=== PATIENT | female | born 1970 | race Two or more races ===

== ENCOUNTER 2021-11-07 08:59 | Outpatient (REF) | payer MEDICAID, SELFPAY ==
--- NOTE | ~2021-11-07 | XR_ITS ---
EXAMINATION: XR CHEST CLINICAL INFORMATION: Pain. Costochondritis COMPARISON: None TECHNIQUE: 2 views of the chest were obtained. FINDINGS: Lungs are clear. There is no pneumothorax or pleural reaction, airspace consolidation, or effusion. The costophrenic sulci are well-defined. Heart size normal. Normal vascularity. The hilar and mediastinal contours are normal. There are mild multilevel degenerative changes thoracic spine with bridging anterior and right lateral osteophytes. No visible acute bony abnormality. XR/XR chest 2V IMPRESSION: -Lungs clear. -Multilevel thoracic vertebral osteophytes.
== END 2021-11-07 09:00 | disposition home or self-care (01) ==
LOC: HO.XRAY 08:59
PROVIDERS: PCP Student in an Organized Health Care Education/Training Program; Visit Provider Student in an Organized Health Care Education/Training Program
DX: M94.0 Chondrocostal junction syndrome [Tietze] (principal)
CPT/HCPCS: 71046

== ENCOUNTER 2023-09-18 20:20 | Outpatient (REF) | payer MEDICAID, SELFPAY | END 2023-09-18 20:21 | disposition home or self-care (01) | LOC: HO.LNP 20:20 | PROVIDERS: Visit Provider Emergency Medicine | DX: M54.50 Low back pain, unspecified (principal) | CPT/HCPCS: 87086 ==

== ENCOUNTER 2023-09-24 08:34 | Outpatient (REF) | payer MEDICAID, SELFPAY ==
[2023-09-24 11:29] LABS: Alanine Aminotransferase 11 U/L (0-31); Albumin Level 3.7 g/dL (3.5-5.0); Alkaline Phosphatase 61 U/L (39-117); Anion Gap 13 (12-20); Aspartate Amino Transferase 11 U/L (5-31); Bilirubin Direct 0.1 mg/dL (0.0-0.5); Bilirubin Total 0.3 mg/dL (0.0-1.0); Blood Urea Nitrogen 11 mg/dL (9-16); Calcium 9.2 mg/dL (8.4-10.2); Carbon Dioxide 27 mmol/L (22-29); Chloride 104 mmol/L (96-108); Cholesterol 194 mg/dL (<200); Estimated Glomerular Filt Rate > 60; Glucose Random 175 mg/dL (60-115); HDL Cholesterol 36 mg/dL (>40); LDL Cholesterol Calculated 122 mg/dL (<100); Potassium 3.8 mmol/L (3.3-5.1); Sodium 140 mmol/L (135-145); Total Protein 6.8 g/dL (6.5-8.0); Triglycerides 182 mg/dL (<150)
== END 2023-09-24 08:35 | disposition home or self-care (01) ==
LOC: HO.CHCLDS 08:34
PROVIDERS: Visit Provider Student in an Organized Health Care Education/Training Program
DX: I10 Essential (primary) hypertension (principal)
CPT/HCPCS: 36415; 80048; 80061; 80076

== ENCOUNTER 2023-10-16 12:19 | Emergency (ER) | payer MEDICAID, SELFPAY ==
--- NOTE | ~2023-10-16 | XR_ITS ---
EXAMINATION: XR HAND, LEFT CLINICAL INFORMATION: Injury. COMPARISON: None available. TECHNIQUE: PA, lateral, and oblique views of the left hand. FINDINGS: The bones and soft tissues are normal. No fracture. Alignment is anatomic. Joint spaces are maintained. No erosions or soft tissue calcifications. XR/XR hand LT min 3V IMPRESSION: Normal left hand.
--- NOTE | 2023-10-16 12:47 | ED.GENADULT ---
HPI - General Adult General Chief complaint: Extremity Problem Stated complaint: L hand inj Time Seen by Provider: 10/16/23 14:30 Related Data Allergies Allergy/AdvReac Type Severity Reaction Status Date / Time morphine Allergy Unknown Anaphylaxis Verified 10/16/23 12:50 Iodinated Contrast Media Allergy Anaphylaxis Verified 10/16/23 12:50 [IV Contrast Dye] [facility] Social History Social History Advance Directives: No Advance Directives Information Provided: No Physical Exam ED Vital Signs: BMI result Body Mass Index 41.5 Course Course Course Narrative: This is a rapid medical exam performed by Carlos Dozier NP: Additional HPI, ROS, PE not included below will be deferred to primary provider. Patient is a 53-year-old right hand dominant female presenting with atraumatic L hand pain for 1 hour. States she shook her left hand and developed the pain. Worst at 3rd MCP joint. Tenderness and mild swelling over 3rd MCP, decreased ROM with flexion of 3rd finger. Capillary refill <3 seconds, 2+ radial pulse. Plan: xray Discharge Plan Discharge Clinical Impression: Hand pain, left Patient Disposition: Left W/O Completing Treatment Discharge Date/Time: 10/16/23 16:11
[2023-10-16 12:48] VITALS: BP 147/79; PULSE 89; RESP 16; TEMP 36.6; O2SAT 98; BMI 41.5
== END 2023-10-16 16:11 | disposition left against medical advice (07) ==
LOC: HO.ED 16:09
PROVIDERS: Emergency Provider Emergency Medicine; PCP Student in an Organized Health Care Education/Training Program
DX: M79.642 Pain in left hand (principal)
CPT/HCPCS: 73130; 99281; 99283

== ENCOUNTER 2023-12-17 08:54 | Outpatient (REF) | payer MEDICAID, SELFPAY ==
[2023-12-17 14:23] LABS: Alanine Aminotransferase 15 U/L (0-31); Alkaline Phosphatase 78 U/L (39-117); Anion Gap 15 (12-20); Aspartate Amino Transferase 11 U/L (5-31); Bilirubin Direct 0.1 mg/dL (0.0-0.5); Bilirubin Total 0.3 mg/dL (0.0-1.0); Blood Urea Nitrogen 17 mg/dL (9-16); Calcium 9.7 mg/dL (8.4-10.2); Carbon Dioxide 29 mmol/L (22-29); Chloride 101 mmol/L (96-108); Cholesterol 226 mg/dL (<200); Estimated Glomerular Filt Rate > 60; Glucose Random 144 mg/dL (60-115); HDL Cholesterol 38 mg/dL (>40); LDL Cholesterol Calculated 148 mg/dL (<100); Potassium 3.4 mmol/L (3.3-5.1); Sodium 142 mmol/L (135-145); Total Protein 7.5 g/dL (6.5-8.0); Triglycerides 200 mg/dL (<150)
== END 2023-12-17 08:55 | disposition home or self-care (01) ==
LOC: HO.CHCLDS 08:54
PROVIDERS: Visit Provider Student in an Organized Health Care Education/Training Program
DX: I10 Essential (primary) hypertension (principal)
CPT/HCPCS: 36415; 80048; 80061; 80076

== ENCOUNTER 2023-12-20 08:47 | Outpatient (REF) | payer MEDICAID, SELFPAY ==
[2023-12-20 14:47] LABS: TSH reflex Free T4 0.11 uIU/mL (0.32-4.0)
[2023-12-20 15:12] LABS: Estimated Average Glucose 169 mg/dL; Hemoglobin A1c % 7.5 % (<6.0)
== END 2023-12-20 08:48 | disposition home or self-care (01) ==
LOC: HO.CHCLDS 08:47
PROVIDERS: Visit Provider Student in an Organized Health Care Education/Training Program
DX: I10 Essential (primary) hypertension (principal)
CPT/HCPCS: 36415; 83036; 84439; 84443

== ENCOUNTER 2024-01-02 07:49 | Outpatient (AMB) | payer MEDICAID, SELFPAY ==
[2024-01-02 08:01] VITALS: BP 118/82; PULSE 65; BMI 44.4
--- NOTE | 2024-01-02 08:01 | MHC.OFFVIS ---
Vital Signs 01/02/24 08:01 Height 5 ft 7 in Weight 283 lb 4.704 oz BMI 44.4 BP 118/82 Blood Pressure Location Lt brachial Position Sitting Pulse 65 Pulse Source Pulse Oximeter Intake Visit Reasons: Hyperthyroidism-conf Intake Note: New patient present today for Hyperthyroidism. Business Relationship Manager Required: Yes Business Relationship Manager Language: Meat Press Operator Services: Business Relationship Manager Present Business Relationship Manager Name: Kristina [id number] Information Interpreted: non-clinical & clinical Accompanied by: Self / Same As Patient Allergies morphine Allergy (Unknown, Verified 01/02/24 08:05) Anaphylaxis Iodinated Contrast Media [IV Contrast Dye] Allergy (Verified 01/02/24 08:05) Anaphylaxis Medication List - Last Reconciled 01/02/24 by Kaleigh Augustine MD acetaminophen ER 650 mg PO Q8H PRN albuterol sulfate 90 mcg/actuation (Ventolin HFA) 2 puffs inhalation TID PRN carvedilol 12.5 mg PO BID diclofenac sodium 1% 2 grams topical QID empagliflozin (Jardiance) 10 mg PO DAILY ibuprofen 800 mg PO Q8H PRN mometasone 200 mcg/actuation (Asmanex HFA) 1 puff inhalation BID montelukast 10 mg PO QPM simvastatin 20 mg PO BEDTIME tiotropium bromide (Spiriva with HandiHaler) 1 cap inhalation DAILY valsartan 160 mg PO BID HPI Comments Details: 53-year-old female coming in today for initial evaluation of subclinical hyperthyroidism. Labs from 12/20/2023 showed TSH of 0.11 uIU per mL, with free T4 of 1.10 ng/dL. No prior history of thyroid disease. Complaining of some heat intolerance. Complaining of palpitations a year , evaluated by cardiology says all studies were normal. Sees Dr. Jon Lindo in [address] Chronic anxiety. Low energy Denies diarrhea or constipation, hair loss, no weight changes, changes in appearance of eyes or vision changes, tremors, increased diaphoresis or dry skin. ? Patient denies any difficulty swallowing, pain on swallowing or voice changes or difficulty breathing. Patient denies any history of childhood neck radiation. Denies having ever used lithium, amiodarone or biotin supplements. Patient denies any family history of thyroid cancer. Mother , maternal grandmother , maternal aunts have thyroid disease. She is not sure what but they havent had thyroid surgery . Has history of tibial fracture 18 years ago, slipped on ice. No history of heart disease or stroke. Denies any viral illness when testing was done. No exposure to contrast . Review of systems Constitutional: no fevers, chills or weight loss HEENT: no changes in vision Cardiac: No chest pain, discomfort or palpitations. Pulmonary: No SOB GI:No abdominal pain, no nausea or vomiting, no anorexia, no blood in stool : no burning micturition, dysuria or increase in urinary frequency Neurologic: No dizziness, no weakness in extremities MSK: no back pain or joint stiffness Physical exam General: sitting comfortably in bed in no acute distress HEENT: normocephalic/atraumatic, moist oral mucosa Neck: supple, symmetrical, no thyromegaly , no dorsocervical or supraclavicular fat pads Cardiac: normal heart sounds Pulm: normal breath sounds B/L, no added breath sounds Abd: not distended, no tenderness Extremities: no edema, no signs of myxedema, no tremors Neuro: AAO x3, Speech: normal, no facial droop, moving all 4 extremities Skin: no rash PFSH Medical History (Updated 01/02/24 @ 08:05 by Kaleigh Augustine MD) Subclinical hyperthyroidism Surgical History (Updated 01/02/24 @ 08:10 by CLAYTON Meyer) History of laparoscopic appendectomy H/O tubal ligation Family History (Updated 01/02/24 @ 08:11 by CLAYTON Meyer) Mother Hypertension Thyroid crisis High cholesterol Father Heart problem Social History Alcohol intake: never Patient Tobacco Use Status: Never used Tobacco Physical Exam Vital Signs: Last Vital Signs Pulse 65 01/02/24 08:01 BP 118/82 01/02/24 08:01 BMI result Body Mass Index 44.4 Results Reviewed Results Reviewed: Laboratory Tests 12/20/23 08:46 TSH 0.11 L Free T4 1.10 Assessment & Plan Assessment & Plan (1) Subclinical hyperthyroidism: Code(s): E05.90 - Thyrotoxicosis, unspecified without thyrotoxic crisis or storm Category: Medical Plan: Patient with subclinical hyperthyroidism with TSH of 0.11 and free T4 1.10 from 12/20/2023, no history of osteoporosis, no history of heart disease. She does have some degree of symptoms with subjective palpitations, she follows with Cardiology, I will try to obtain her records to see if she has any diagnosis of atrial fibrillation, but patient states all of her studies were normal.. Treatment criteria for subclinical hyperthyroidism in evaluation for further etiology is either TSH less than 0.1, or if patient is above age 65, has history of osteoporosis or cardiac disease. Currently she is not meeting criteria for treatment. I will have her repeat labs in another 3 months. Her heart rate today was in the 60s, she is not symptomatic on my exam. She is already on low-dose carvedilol for her blood pressure. At this point we do not need to give her any beta-blockers. I will check her antibodies because her TSH is quite close to being less than 0.1, and we might have to consider treatment in the future especially for blood work shows worsening hyperthyroidism. Plan: -ordered repeat TSH, free T4, TSI and trab antibodies in 3 months -follow up in 3 months -obtain cardiology records Plan I spent 45 minutes in reviewing the record, seeing the patient and documenting in the medical record. Orders: Orders Complete Blood Count Auto Diff Today E05.90 - Thyrotoxicosis, unspecified without thyrotoxic crisis or storm Thyroid Stimulating Hormone Today E05.90 - Thyrotoxicosis, unspecified without thyrotoxic crisis or storm Free T4 (Free Thyroxine) Today E05.90 - Thyrotoxicosis, unspecified without thyrotoxic crisis or storm Triiodothyronine T3 Total Today E05.90 - Thyrotoxicosis, unspecified without thyrotoxic crisis or storm Thyroid Stimulating Immunoglob Today E05.90 - Thyrotoxicosis, unspecified without thyrotoxic crisis or storm Thyrotropin Receptor Antibody Today E05.90 - Thyrotoxicosis, unspecified without thyrotoxic crisis or storm Patient Instructions: Do blood work in 3 months prior to your next appointment If you have worsening tachycardia, anxiety, weight changes or feeling sick, call our office during office hours 8 to 4 pm to let us know and we can do your blood work sooner Realice an?lisis de yassine 3 meses antes de llanes pr?xima donnell. Si empeora la taquicardia, la ansiedad, los cambios de peso o se siente enfermo, llame a nuestra oficina cecil el horario de oficina de 8 a 4 p. m. para informarnos y podremos realizar llanes an?lisis de yassine antes. Coding Level of Care Code New Pt Level 4 (82653) Diagnoses Subclinical hyperthyroidism E05.90 Time Spent (min) 45
== END 2024-01-02 08:52 | disposition home or self-care (01) ==
PROVIDERS: PCP Student in an Organized Health Care Education/Training Program; Referring Provider Student in an Organized Health Care Education/Training Program; Visit Provider Student in an Organized Health Care Education/Training Program
DX: E05.90 Thyrotoxicosis, unspecified without thyrotoxic crisis or storm (principal)
CPT/HCPCS: 99204

== ENCOUNTER → 2024-01-02 07:49 | Outpatient (BNVA) | payer MEDICAID, SELFPAY | PROVIDERS: PCP Student in an Organized Health Care Education/Training Program; Visit Provider Student in an Organized Health Care Education/Training Program | DX: E05.90 Thyrotoxicosis, unspecified without thyrotoxic crisis or storm (principal) | CPT/HCPCS: 99202 ==

== ENCOUNTER 2024-02-04 14:09 | Outpatient (AMB) | payer MEDICAID, SELFPAY ==
[2024-02-04 14:13] VITALS: BP 122/76; PULSE 77; BMI 44.2
--- NOTE | 2024-02-04 14:13 | MHC.OFFVIS ---
Vital Signs 02/04/24 14:13 Height 5 ft 7 in Weight 281 lb 15.539 oz BMI 44.2 BP 122/76 Blood Pressure Location Lt brachial Position Sitting Pulse 77 Pulse Source Pulse Oximeter Intake Visit Reasons: Diabetes Type 2 Strategic Sourcing Consultant Required: Yes Strategic Sourcing Consultant Language: Steam And Power Supervisor Services: Strategic Sourcing Consultant Present Strategic Sourcing Consultant Name: Ken Information Interpreted: non-clinical & clinical Accompanied by: Self / Same As Patient Allergies morphine Allergy (Unknown, Verified 02/04/24 14:17) Anaphylaxis Iodinated Contrast Media [IV Contrast Dye] Allergy (Verified 02/04/24 14:17) Anaphylaxis Medication List - Last Reconciled 02/04/24 by Kaleigh Augustine MD acetaminophen ER 650 mg PO Q8H PRN albuterol sulfate 90 mcg/actuation (Ventolin HFA) 2 puffs inhalation TID PRN carvedilol 12.5 mg PO BID diclofenac sodium 1% 2 grams topical QID empagliflozin (Jardiance) 10 mg PO DAILY ibuprofen 800 mg PO Q8H PRN mometasone 200 mcg/actuation (Asmanex HFA) 1 puff inhalation BID montelukast 10 mg PO QPM simvastatin 20 mg PO BEDTIME tiotropium bromide (Spiriva with HandiHaler) 1 cap inhalation DAILY valsartan 160 mg PO BID HPI Comments Details: 53-year-old female coming in today for new onset type 2 diabetes mellitus. She was also seen by me recently in January 03 for initial evaluation of subclinical hyperthyroidism. Today she wants to establish with us for her diabetes care. Type 2 diabetes mellitus Diagnosed December 2023 New onset Hba1c 7.5 % SMBGs: Fasting brought in glucometer 02/03 175 01/31 154 01/30 160 01/29 174 01/28 168 17 218 16 130 14 193 13 160 11 170 /10 180 01/19 204 01/17 179 Ranging 160, 170smostly very few 200 Never hospitalised for low or high blood sugars Complains of increased urination, increased thirst. Exercise: none Weight BMI 44.2 kg/m2 Weight : feels like its stable for many years Food : Homemaker Wakes up at 6 or 7 AM Breakfast 9 to 11 AM 4-5 crackers with coffee, with milk and sugar 2 teaspoons Lunch at 1-2 pm : sandwich , very variable Dinner: 5 pm : rice, pasta with veggies with meat Mostly home made meals Juice with lunch Medications Jaridiance 10 mg daily started December 2023 No UTI or yeast infections Prior medications Could not tolerate metformin ( only took it for a week) , explosive diarrhea Family history: mother, maternal grandmother, sisters have type 2 DM Complications Eye doctor: none recently, no history of retinopathy Neuropathy: has numbness and tingling in feet since 2 years No kidney disease No stroke or heart attack Alcohol: none Subclinical hyperthyroidism: Not addressed today Labs from 12/20/2023 showed TSH of 0.11 uIU per mL, with free T4 of 1.10 ng/dL. No prior history of thyroid disease. Complaining of some heat intolerance. Complaining of palpitations a year , evaluated by cardiology says all studies were normal. Sees Dr. Jon Lindo in [address] Chronic anxiety. Low energy Denies diarrhea or constipation, hair loss, no weight changes, changes in appearance of eyes or vision changes, tremors, increased diaphoresis or dry skin. ? Patient denies any difficulty swallowing, pain on swallowing or voice changes or difficulty breathing. Patient denies any history of childhood neck radiation. Denies having ever used lithium, amiodarone or biotin supplements. Patient denies any family history of thyroid cancer. Mother , maternal grandmother , maternal aunts have thyroid disease. She is not sure what but they havent had thyroid surgery . Has history of tibial fracture 18 years ago, slipped on ice. No history of heart disease or stroke. Denies any viral illness when testing was done. No exposure to contrast . Review of systems Constitutional: no fevers, chills or weight loss HEENT: no changes in vision Cardiac: No chest pain, discomfort or palpitations. Pulmonary: No SOB GI:No abdominal pain, no nausea or vomiting, no anorexia, no blood in stool : no burning micturition, dysuria or increase in urinary frequency Neurologic: No dizziness, no weakness in extremities MSK: has fibromyalgia Physical exam General: sitting comfortably in bed in no acute distress HEENT: normocephalic/atraumatic, moist oral mucosa Neck: supple, symmetrical, no thyromegaly , no dorsocervical or supraclavicular fat pads Cardiac: normal heart sounds Pulm: normal breath sounds B/L, no added breath sounds Abd: not distended, no tenderness Extremities: no edema, no signs of myxedema, no tremors Neuro: AAO x3, Speech: normal, no facial droop, moving all 4 extremities Skin: no rash Foot exam: Intact sensation to monofilament, skin slough thinning in the bottom noted, mildly reduced vibration sensation PFSH Medical History (Updated 02/04/24 @ 15:10 by Kaleigh Augustine MD) HTN (hypertension) HLD (hyperlipidemia) Obesity Diabetes mellitus Subclinical hyperthyroidism Surgical History (Updated 01/02/24 @ 08:10 by CLAYTON Meyer) History of laparoscopic appendectomy H/O tubal ligation Family History Mother Hypertension Thyroid crisis High cholesterol Father Heart problem Social History (Updated 01/02/24 @ 08:11 by CLAYTON Meyer) Alcohol intake: never Patient Tobacco Use Status: Never used Tobacco Physical Exam Vital Signs: Last Vital Signs Pulse 77 02/04/24 14:13 BP 122/76 02/04/24 14:13 BMI result Body Mass Index 44.2 Results Reviewed Results Reviewed: Laboratory Tests 12/17/23 12/20/23 12/20/23 08:55 08:46 08:48 Creatinine 0.94 Estimated GFR > 60 Estimat Average Glucose 169 Hemoglobin A1c % 7.5 H AST 11 ALT 15 Triglycerides 200 H Cholesterol 226 H LDL Cholesterol, Calc 148 H HDL Cholesterol 38 L TSH 0.11 L Free T4 1.10 Assessment & Plan Assessment & Plan (1) Diabetes mellitus: Code(s): E11.9 - Type 2 diabetes mellitus without complications Category: Medical Qualifiers: Diabetes mellitus type: type 2 Diabetes mellitus longterm insulin use: without longterm use Diabetes mellitus complication detail: with polyneuropathy Diabetes mellitus complication status: with neurologic complications Qualified Code(s): E11.42 - Type 2 diabetes mellitus with diabetic polyneuropathy Plan: Patient with new onset of diabetes in December 2023, with no insulin use, complication of neuropathy. A. Last HBA1c was 7.5 % December 2023 the time of diagnosis. has a relatively higher CV risk as compared to the general population based on his diabetic status, hyperlipidemia ?and hypertension. She was started on Jardiance 10 mg daily in December 2023. It has been about 2 months. Her fasting blood sugar readings have been ranging anywhere between 160-170 and a few readings above 200. No hypoglycemic episodes. Advised patient that her fasting blood glucose should be between 90- 130. She was previously unable to tolerate metformin. Given BMI of 44.2 kg per m2, she would really also benefit from weight loss measures in medication that would help with weight loss. She would be an excellent candidate for a GLP 1 agonist. I briefly spoke to her about Nanette/Chanel/Dipti today. She would be willing to start this, however we will wait to see what her A1c is like prior to her appointment in March 2024 with me. If A1c remains greater than 7%, with consistently elevated fasting blood sugars, we will start GLP 1 agonist. D:?Diet control and healthy lifestyle was discussed in detail. Emphasis was made on exercise and physical activity in daily routine with at least 30-45 minutes of aerobic exercise 5-6 days a week. My Plate plan I discussed portion control. E: Last visit with fan mail clerk : No recent visit. No diabetic retinopathy. Ophthalmology referral placed, patient counseled to see eye doctor. F: Foot care is suboptimal, skin sloughing noted. Intact sensation to monofilament. Advised about regular foot daily in the morning. G: eGFR >December and microalbumin/Cr ratio not done. Plan: -continue Jardiance 10 mg daily -continue monitoring fasting blood sugars -ophthalmology referral placed -lifestyle modification discussed in detail as mentioned in instructions -referral for product safety technical assistant placed (2) Obesity: Code(s): E66.9 - Obesity, unspecified Category: Medical Qualifiers: Obesity type: due to excess calories Obesity classification: adult class 3 (BMI >= 40) Body mass index: BMI 40.0-44.9 Serious obesity comorbidity presence: with serious comorbidity Qualified Code(s): E66.01 - Morbid (severe) obesity due to excess calories; Z68.41 - Body mass index [BMI] 40.0-44.9, adult Plan: BMI 44.2 kg per m2. 285 lb. Patient feels this is her weight for the last few years. Though per chart she has gained 20 lb over the past few months. She would be a candidate for bariatric surgery. We will consider addressing that with her in the next few visits. Jardiance was just started last month, we will consider adding a GLP 1 agonist in the next visit based on her A1c. Plan: -lifestyle modification discussed in detail -referral for product safety technical assistant placed -we will plan to start GLP 1 agonist after next follow up -consider bariatric surgery, discussion in the next few visits (3) HLD (hyperlipidemia): Code(s): E78.5 - Hyperlipidemia, unspecified Category: Medical Qualifiers: Hyperlipidemia type: mixed hyperlipidemia Qualified Code(s): E78.2 - Mixed hyperlipidemia Plan: LDL of 148 mg/dL from December 2023. Goal LDL is less than 90 mg/dL. Also noted to have elevated triglycerides and total cholesterol. She was not taking her simvastatin regularly before and just started in December. Plan: -repeat lipid panel prior to appointment in March 2024, if still has less reduction than 30-50% in her LDL, we will switch to atorvastatin 40 mg daily. -check platelets, repeat AST and ALT and calculate FIB 4 score once we have platelets to evaluate for MASLD (4) HTN (hypertension): Code(s): I10 - Essential (primary) hypertension Category: Medical Qualifiers: Hypertension type: primary hypertension Qualified Code(s): I10 - Essential (primary) hypertension Plan: Blood pressure at goal. Plan: -continue valsartan 160 mg daily and carvedilol 12.5 mg BID Plan I spent 30 minutes in reviewing the record, seeing the patient and documenting in the medical record. Orders: Orders Lipid Panel 2 Months E11.9 - Type 2 diabetes mellitus without complications Microalbumin, Random (w Creat) 2 Months E11.9 - Type 2 diabetes mellitus without complications Creatinine Urine 2 Months E11.9 - Type 2 diabetes mellitus without complications Hemoglobin A1c 2 Months E11.9 - Type 2 diabetes mellitus without complications Basic Metabolic Panel 2 Months E11.9 - Type 2 diabetes mellitus without complications Platelet Count 2 Months E11.9 - Type 2 diabetes mellitus without complications, E66.9 - Obesity, unspecified Referrals Ophthalmology Referral E11.9 - Type 2 diabetes mellitus without complications Embedded Firmware Developer Nutrition Referral E11.9 - Type 2 diabetes mellitus without complications Patient Instructions: See eye doctor Do blood work and urine test fasting 5 days prior to your next appointment in March See product safety technical assistant Continue jardiance 10 mg daily Continue simvastatin 20 mg daily Weight loss counselling ? Limit added sugars to less than 25 grams daily. There are 4.2 grams of sugar per teaspoon of sugar. A teaspoon of honey has 6 grams of sugar! Bread also can have more sugar than you think-check labels ? No soda or juices. Drink water, unsweetened iced tea or seltzer ? Limit eating out/take out or prepared meals to twice weekly at most ? Avoid red meat, hot dogs, garcia and deli meat. Substitute plant protein for animal protein as much as you can. Beans, nuts, tofu, soy milk ? Limit cheese to 1 ounce a few times weekly ? Eat high fiber foods like beans, apples and green veggies, salsa is a great snack with whole grain cracker like Wasa ? Look for the whole grain stamp when choosing bread etc. Aim for 48 grams of whole grains daily. Whole wheat does not equal whole grains! ? Don't keep tempting treats in the house. Go out once in a while for a treat. ? Don't eat anything deep fried or cream based-no sour cream Paola oculista Realice an?lisis de yassine y orina en ayunas 5 d?as antes de llanes pr?xima donnell en noviembre. Paola nutricionista Continuar con jardiance 10 mg al d?a. Continuar con simvastatina 20 mg al d?a. Asesoramiento para bajar de peso. ? Limite los az?cares agregados a menos de 25 gramos diarios. Hay 4,2 gramos de az?car por cucharadita de az?car. ?Flor cucharadita de miel tiene 6 gramos de az?car! El jo tambi?n puede tener m?s az?car de lo que crees: revisa las etiquetas ? No refrescos ni jugos. Juanita agua, t? helado sin az?car o agua mineral. ? Limite las comidas fuera de casa, para llevar o preparadas a dos veces por semana [place] m?ximo. ? Evite las giles stone, las salchichas, el tocino y las giles fr?as. Sustituye la prote?na animal por prote?na vegetal tanto [place] puedas. Frijoles, nueces, tofu, leche de soja ? Limite el queso a 1 onza algunas veces por semana ? Consuma alimentos ricos en fibra [place] frijoles, manzanas y verduras verdes; la salsa es un excelente refrigerio con galletas integrales [place] Wasa. ? Busque el sello de cereales integrales al elegir jo, etc. Trate de consumir 48 gramos de cereales integrales al d?a. ?El cam integral no es igual a los cereales integrales! ? No tengas golosinas tentadoras en casa. Gurdeep de vez en cuando a darte un capricho. ? No coma nada frito o a base de crema, ni crema agria. Coding Level of Care Code Est Pt Level 4 (71550) Complex EM visit Add On G2211 Diagnoses Type 2 diabetes mellitus with diabetic polyneuropathy, without long-term current use of insulin E11.42 Diabetes mellitus type: type 2 Diabetes mellitus longterm insulin use: without manager intermediate use Diabetes mellitus complication detail: with polyneuropathy Diabetes mellitus complication status: with neurologic complications Class 3 severe obesity due to excess calories with serious comorbidity and body mass index (BMI) of 40.0 to 44.9 in adult E66.01; Z68.41 Obesity type: due to excess calories Obesity classification: adult class 3 (BMI >= 40) Body mass index: BMI 40.0-44.9 Serious obesity comorbidity presence: with serious comorbidity Mixed hyperlipidemia E78.2 Hyperlipidemia type: mixed hyperlipidemia Primary hypertension I10 Hypertension type: primary hypertension Time Spent (min) 30
== END 2024-02-04 15:03 | disposition home or self-care (01) ==
PROVIDERS: PCP Student in an Organized Health Care Education/Training Program; Visit Provider Student in an Organized Health Care Education/Training Program
DX: E11.42 Type 2 diabetes mellitus with diabetic polyneuropathy (principal); E66.01 Morbid (severe) obesity due to excess calories; Z68.41 Body mass index [BMI] 40.0-44.9, adult; E78.2 Mixed hyperlipidemia; I10 Essential (primary) hypertension
CPT/HCPCS: 99214

== ENCOUNTER → 2024-02-04 14:09 | Outpatient (BNVA) | payer MEDICAID, SELFPAY | PROVIDERS: PCP Student in an Organized Health Care Education/Training Program; Visit Provider Student in an Organized Health Care Education/Training Program | DX: E11.42 Type 2 diabetes mellitus with diabetic polyneuropathy (principal); E66.01 Morbid (severe) obesity due to excess calories; E78.2 Mixed hyperlipidemia; I10 Essential (primary) hypertension; Z68.41 Body mass index [BMI] 40.0-44.9, adult | CPT/HCPCS: 99212 ==

== ENCOUNTER 2024-03-30 08:57 | Outpatient (REF) | payer MEDICAID, SELFPAY ==
[2024-03-30 14:29] LABS: Estimated Average Glucose 154 mg/dL; Hemoglobin A1C 177.1804 umol/L; Platelet Count 233 X10*3/uL (160-400); Total Hemoglobin (HGBA1C) 3344.2288 umol/L
[2024-03-30 14:36] LABS: Alanine Aminotransferase 18 U/L (0-31); Anion Gap 13 (12-20); Aspartate Amino Transferase 26 U/L (5-31); Blood Urea Nitrogen 12 mg/dL (9-16); Calcium 9.6 mg/dL (8.4-10.2); Carbon Dioxide 24 mmol/L (22-29); Chloride 108 mmol/L (96-108); Cholesterol 145 mg/dL (<200); Estimated Glomerular Filt Rate > 60; Glucose Random 124 mg/dL (60-115); HDL Cholesterol 31 mg/dL (>40); LDL Cholesterol Calculated 87 mg/dL (<100); Potassium 3.8 mmol/L (3.3-5.1); Sodium 141 mmol/L (135-145); Triglycerides 138 mg/dL (<150)
[2024-03-30 14:39] LABS: Creatinine Urine 133.18 mg/dL; Microalbum/Creatinine Ratio Ur 108.8 ug/mg cr (<30)
== END 2024-03-30 08:58 | disposition home or self-care (01) ==
LOC: HO.CHCLDS 08:57
PROVIDERS: Referring Provider Internal Medicine Cardiovascular Disease; Visit Provider Student in an Organized Health Care Education/Training Program
DX: E11.9 Type 2 diabetes mellitus without complications (principal); I10 Essential (primary) hypertension; E66.9 Obesity, unspecified
CPT/HCPCS: 36415; 80048; 80061; 82043; 82570; 83036; 84450; 84460; 85049

== ENCOUNTER 2024-04-02 09:05 | Outpatient (AMB) | payer MEDICAID, SELFPAY ==
[2024-04-02 09:06] VITALS: BP 112/62; PULSE 60; BMI 44.3
--- NOTE | 2024-04-02 09:06 | A.OFFVIS_ITS ---
Vital Signs 04/02/24 09:06 Height 5 ft 7 in Weight 282 lb 10.122 oz BMI 44.3 BP 112/62 Blood Pressure Location Rt brachial Position Sitting Pulse 60 Pulse Source Pulse Oximeter Intake Visit Reasons: F/[id number] Intake Note: Patient present today for hyperthyroidism follow up visit. [employer] Required: Yes [employer] Language: Food Preparation Kitchen Aide Services: [employer] Present [employer] Name: Usama [id number] Information Interpreted: non-clinical & clinical Accompanied by: Self / Same As Patient Allergies morphine Allergy (Unknown, Verified 04/02/24 09:10) Anaphylaxis Iodinated Contrast Media [IV Contrast Dye] Allergy (Verified 04/02/24 09:10) Anaphylaxis HPI Comments Details: 53-year-old female coming in today for follow up of type 2 diabetes mellitus and subclinical hyperthyroidism. She was also seen by me recently in January 03 for initial evaluation of subclinical hyperthyroidism. Today she wants to establish with us for her diabetes care. Type 2 diabetes mellitus Diagnosed December 2023 New onset Hba1c 7.5 % 202303/30/24 : A1c 7 % SMBGs: Did nt bring in glucometer today Fasting number she recalled 165 , 167 Never hospitalised for low or high blood sugars Complains of increased urination, increased thirst. Exercise: none Weight BMI 44.2 kg/m2 Weight : feels like its stable for many years Food : Homemaker Wakes up at 6 or 7 AM Breakfast 9 to 11 AM 4-5 crackers with coffee, with milk and sugar 2 teaspoons Lunch at 1-2 pm : sandwich , very variable Dinner: 5 pm : rice, pasta with veggies with meat Mostly home made meals Juice with lunch Medications Jaridiance 10 mg daily started December 2023 She got a UTI in February 2024 , took antibiotics for it , resolved I gave her fluconazole 150 mg daily 03/28 No denies any itching Prior medications Could not tolerate metformin ( only took it for a week) , explosive diarrhea Family history: mother, maternal grandmother, sisters have type 2 DM No history of pancreatitis No family history of medullary thyroid cancer Complications Eye doctor: none recently, no history of retinopathy Neuropathy: has numbness and tingling in feet since 2 years No kidney disease No stroke or heart attack Alcohol: none Subclinical hyperthyroidism: Not addressed today Labs from 12/20/2023 showed TSH of 0.11 uIU per mL, with free T4 of 1.10 ng/dL. No prior history of thyroid disease. Complaining of some heat intolerance. Complaining of palpitations a year , evaluated by cardiology says all studies were normal. Sees Dr. Jon Lindo in [address] Chronic anxiety. Low energy Denies diarrhea or constipation, hair loss, no weight changes, changes in appearance of eyes or vision changes, tremors, increased diaphoresis or dry skin. ? Patient denies any difficulty swallowing, pain on swallowing or voice changes or difficulty breathing. Patient denies any history of childhood neck radiation. Denies having ever used lithium, amiodarone or biotin supplements. Patient denies any family history of thyroid cancer. Mother , maternal grandmother , maternal aunts have thyroid disease. She is not sure what but they havent had thyroid surgery . Has history of tibial fracture 18 years ago, slipped on ice. No history of heart disease or stroke. Denies any viral illness when testing was done. No exposure to contrast . Review of systems Constitutional: no fevers, chills or weight loss HEENT: no changes in vision Cardiac: No chest pain, discomfort or palpitations. Pulmonary: No SOB GI:No abdominal pain, no nausea or vomiting, no anorexia, no blood in stool : no burning micturition, dysuria or increase in urinary frequency Neurologic: No dizziness, no weakness in extremities MSK: has fibromyalgia Physical exam General: sitting comfortably in bed in no acute distress HEENT: normocephalic/atraumatic, moist oral mucosa Neck: supple, symmetrical, no thyromegaly , no dorsocervical or supraclavicular fat pads Cardiac: normal heart sounds Pulm: normal breath sounds B/L, no added breath sounds Abd: not distended, no tenderness Extremities: no edema, no signs of myxedema, no tremors Neuro: AAO x3, Speech: normal, no facial droop, moving all 4 extremities Laboratory Tests 12/20/23 12/20/23 03/30/24 08:46 08:48 09:01 Creatinine 0.83 Estimated GFR > 60 Hemoglobin A1c % 7.5 H 7.0 H Triglycerides 138 Cholesterol 145 LDL Cholesterol, Calc 87 HDL Cholesterol 31 L TSH 0.11 L Free T4 1.10 PFSH Medical History (Updated 02/04/24 @ 15:10 by Kaleigh Augustine MD) HTN (hypertension) HLD (hyperlipidemia) Obesity Diabetes mellitus Subclinical hyperthyroidism Surgical History History of laparoscopic appendectomy H/O tubal ligation Family History Mother Hypertension Thyroid crisis High cholesterol Father Heart problem Social History Alcohol intake: never Patient Tobacco Use Status: Never used Tobacco Physical Exam Vital Signs: Last Vital Signs Pulse 60 04/02/24 09:06 BP 112/62 04/02/24 09:06 BMI result Body Mass Index 44.3 Assessment & Plan Assessment & Plan (1) Diabetes mellitus: Code(s): E11.9 - Type 2 diabetes mellitus without complications Category: Medical Qualifiers: Diabetes mellitus type: type 2 Diabetes mellitus rn long term care insulin use: without retirement use Diabetes mellitus complication status: with neurologic complications Diabetes mellitus complication detail: with polyneuropathy Qualified Code(s): E11.42 - Type 2 diabetes mellitus with diabetic polyneuropathy Plan: Patient with new onset of diabetes in December 2023, with no insulin use, complication of neuropathy. A. Last HBA1c was 7% from March 2024 down from 7.5 % December 2023 the time of diagnosis. has a relatively higher CV risk as compared to the general population based on his diabetic status, hyperlipidemia ?and hypertension. She was started on Jardiance 10 mg daily in December 2023. Her fasting blood sugar readings still remain elevated anywhere between 160-170 per patient, she did not bring in her glucometer today.. No hypoglycemic episodes. Advised patient that her fasting blood glucose should be between 90- 130. She was previously unable to tolerate metformin. Given BMI of 44.2 kg per m2, she would really also benefit from weight loss measures in medication that would help with weight loss. She would be an excellent candidate for a GLP 1 agonist. No history of pancreatitis, no family history of medullary thyroid cancer. Her primary care physician already sent her a prescription of Wegovy, she is already picked this up. She also got a UTI/yeast infection with Jardiance, now r esolved. We will plan to continue for now, if she gets a 2nd infection we will plan to stop it. I counseled her extensively today about hygiene measures. Encouraged her to get a bidet. D:?Diet control and healthy lifestyle was discussed in detail. Emphasis was made on exercise and physical activity in daily routine with at least 30-45 minutes of aerobic exercise 5-6 days a week. My Plate plan I discussed portion control. E: Last visit with director of construction : No recent visit. No diabetic retinopathy. Ophthalmology referral placed, patient counseled to see eye doctor. F: From January visit: Foot care is suboptimal, skin sloughing noted. Intact sensation to monofilament. Advised about regular foot daily in the morning. G: eGFR >December and microalbumin/Cr ratio 108: From March 2024. Plan: -continue Jardiance 10 mg daily -start Wegovy 0.25 mg weekly, with plan to titrate up to 0.5 mg weekly in 4-5 weeks. Patient counseled to call our office for up titration. -continue monitoring fasting blood sugars -ophthalmology referral placed -lifestyle modification discussed again with 30 minutes of exercise daily. -referral for supervisor screen printing placed, this was already placed last time but does not seem like she got an appointment. (2) Obesity: Code(s): E66.9 - Obesity, unspecified Category: Medical Qualifiers: Obesity type: due to excess calories Obesity classification: adult class 3 (BMI >= 40) Serious obesity comorbidity presence: with serious comorbidity Body mass index: BMI 40.0-44.9 Qualified Code(s): E66.01 - Morbid (severe) obesity due to excess calories; Z68.41 - Body mass index [BMI] 40.0- 44.9, adult Plan: BMI 44.2 kg per m2. 285 lb. Patient feels this is her weight for the last few years. Though per chart she has gained 20 lb over the past few months. She would be a candidate for bariatric surgery. We will consider addressing that with her in the next few visits. Jardiance was just started December 2023, she is an excellent candidate for GLP 1 agonist. Plan: -lifestyle modification discussed l -referral for supervisor screen printing placed -start Wegovy 0.25 mg weekly, with plan to titrate up in 4-5 weeks -consider bariatric surgery, discussion in the next few visits (3) HLD (hyperlipidemia): Code(s): E78.5 - Hyperlipidemia, unspecified Category: Medical Qualifiers: Hyperlipidemia type: mixed hyperlipidemia Qualified Code(s): E78.2 - Mixed hyperlipidemia Plan: LDL of 148 mg/dL from December 2023. Goal LDL is less than 90 mg/dL. Most recent LDL from March 2024 down to 87 mg/dL since she has started the simvastatin again. Also noted to have elevated triglycerides and total cholesterol. She was not taking her simvastatin regularly before and just started in December. Plan: -continue taking simvastatin -Her FIb 4 index came back at 1.34 : i assess this after appointment will discuss GI referral for further evaluation at next appointmet (4) HTN (hypertension): Code(s): I10 - Essential (primary) hypertension Category: Medical Qualifiers: Hypertension type: primary hypertension Qualified Code(s): I10 - Essential (primary) hypertension Plan: Blood pressure at goal. Plan: -continue valsartan 160 mg daily and carvedilol 12.5 mg BID (5) Subclinical hyperthyroidism: Code(s): E05.90 - Thyrotoxicosis, unspecified without thyrotoxic crisis or storm Category: Medical Plan: Patient with subclinical hyperthyroidism with TSH of 0.11 and free T4 1.10 from 12/20/2023, no history of osteoporosis, no history of heart disease. Treatment criteria for subclinical hyperthyroidism in evaluation for further etiology is either TSH less than 0.1, or if patient is above age 65, has history of osteoporosis or cardiac disease. Currently she is not meeting criteria for treatment. I will have her repeat labs in another 3 months. Her heart rate today was in the 60s, she is not symptomatic on my exam. She is already on low-dose carvedilol for her blood pressure. At this point we do not need to give her any beta-blockers. I will check her antibodies because her TSH is quite close to being less than 0.1, and we might have to consider treatment in the future especially for blood work shows worsening hyperthyroidism. Plan: -ordered repeat TSH, free T4, TSI and trab antibodies -follow up in 3 months Plan I spent 30 minutes in reviewing the record, seeing the patient and documenting in the medical record. Orders: Orders Thyrotropin Receptor Antibody 11 Weeks E05.90 - Thyrotoxicosis, unspecified without thyrotoxic crisis or storm, E11.42 - Type 2 diabetes mellitus with diabetic polyneuropathy, E66.01 - Morbid (severe) obesity due to excess calories, E78.2 - Mixed hyperlipidemia, I10 - Essential (primary) hypertension, Z68.41 - Body mass index [BMI] 40.0-44.9, adult Triiodothyronine T3 Total 11 Weeks E05.90 - Thyrotoxicosis, unspecified without thyrotoxic crisis or storm, E11.42 - Type 2 diabetes mellitus with diabetic polyneuropathy, E66.01 - Morbid (severe) obesity due to excess calories, E78.2 - Mixed hyperlipidemia, I10 - Essential (primary) hypertension, Z68.41 - Body mass index [BMI] 40.0-44.9, adult Hemoglobin A1c 11 Weeks E05.90 - Thyrotoxicosis, unspecified without thyrotoxic crisis or storm, E11.42 - Type 2 diabetes mellitus with diabetic polyneuropathy, E66.01 - Morbid (severe) obesity due to excess calories, E78.2 - Mixed hyperlipidemia, I10 - Essential (primary) hypertension, Z68.41 - Body mass index [BMI] 40.0-44.9, adult Microalbumin, Random (w Creat) 11 Weeks E05.90 - Thyrotoxicosis, unspecified without thyrotoxic crisis or storm, E11.42 - Type 2 diabetes mellitus with diabetic polyneuropathy, E66.01 - Morbid (severe) obesity due to excess calories, E78.2 - Mixed hyperlipidemia, I10 - Essential (primary) hypertension, Z68.41 - Body mass index [BMI] 40.0-44.9, adult Thyroid Stimulating Hormone 11 Weeks E05.90 - Thyrotoxicosis, unspecified without thyrotoxic crisis or storm, E11.42 - Type 2 diabetes mellitus with diabetic polyneuropathy, E66.01 - Morbid (severe) obesity due to excess calories, E78.2 - Mixed hyperlipidemia, I10 - Essential (primary) hypertension, Z68.41 - Body mass index [BMI] 40.0-44.9, adult Free T4 (Free Thyroxine) 11 Weeks E05.90 - Thyrotoxicosis, unspecified without thyrotoxic crisis or storm, E11.42 - Type 2 diabetes mellitus with diabetic polyneuropathy, E66.01 - Morbid (severe) obesity due to excess calories, E78.2 - Mixed hyperlipidemia, I10 - Essential (primary) hypertension, Z68.41 - Body mass index [BMI] 40.0-44.9, adult Thyroid Stimulating Immunoglob 11 Weeks E05.90 - Thyrotoxicosis, unspecified without thyrotoxic crisis or storm, E11.42 - Type 2 diabetes mellitus with diabetic polyneuropathy, E66.01 - Morbid (severe) obesity due to excess calories, E78.2 - Mixed hyperlipidemia, I10 - Essential (primary) hypertension, Z68.41 - Body mass index [BMI] 40.0-44.9, adult Basic Metabolic Panel 11 Weeks E05.90 - Thyrotoxicosis, unspecified without thyrotoxic crisis or storm, E11.42 - Type 2 diabetes mellitus with diabetic polyneuropathy, E66.01 - Morbid (severe) obesity due to excess calories, E78.2 - Mixed hyperlipidemia, I10 - Essential (primary) hypertension, Z68.41 - Body mass index [BMI] 40.0-44.9, adult Referrals Ophthalmology Referral E11.42 - Type 2 diabetes mellitus with diabetic polyneuropathy Patient Instructions: Start Wegovy 0.25 mg weekly now Call our office during offcie hours in 4-5 weeks to increase the dose to 0.5 mg weekly Continue jardiance 10 mg daily See supervisor screen printing Follow up in 3 months with blood and urine test done 3-4 days before Contiue checking sugars and bring meter next time Coding Level of Care Code Est Pt Level 4 (48949) Complex EM visit Add On G2211 Diagnoses Type 2 diabetes mellitus with diabetic polyneuropathy, without long-term current use of insulin E11.42 Diabetes mellitus type: type 2 Diabetes mellitus retirement insulin use: without rn long term care use Diabetes mellitus complication status: with neurologic complications Diabetes mellitus complication detail: with polyneuropathy Class 3 severe obesity due to excess calories with serious comorbidity and body mass index (BMI) of 40.0 to 44.9 in adult E66.01; Z68.41 Obesity type: due to excess calories Obesity classification: adult class 3 (BMI >= 40) Serious obesity comorbidity presence: with serious comorbidity Body mass index: BMI 40.0-44.9 Mixed hyperlipidemia E78.2 Hyperlipidemia type: mixed hyperlipidemia Primary hypertension I10 Hypertension type: primary hypertension Subclinical hyperthyroidism E05.90 Time Spent (min) 30
== END 2024-04-02 09:55 | disposition home or self-care (01) ==
PROVIDERS: PCP Student in an Organized Health Care Education/Training Program; Visit Provider Student in an Organized Health Care Education/Training Program
DX: E11.42 Type 2 diabetes mellitus with diabetic polyneuropathy (principal); E66.01 Morbid (severe) obesity due to excess calories; Z68.41 Body mass index [BMI] 40.0-44.9, adult; E78.2 Mixed hyperlipidemia; I10 Essential (primary) hypertension; E05.90 Thyrotoxicosis, unspecified without thyrotoxic crisis or storm
CPT/HCPCS: 99214

== ENCOUNTER → 2024-04-02 09:05 | Outpatient (BNVA) | payer MEDICAID, SELFPAY | PROVIDERS: PCP Student in an Organized Health Care Education/Training Program; Visit Provider Student in an Organized Health Care Education/Training Program | DX: E11.42 Type 2 diabetes mellitus with diabetic polyneuropathy (principal); E78.2 Mixed hyperlipidemia; E05.90 Thyrotoxicosis, unspecified without thyrotoxic crisis or storm; I10 Essential (primary) hypertension; E66.01 Morbid (severe) obesity due to excess calories; Z68.41 Body mass index [BMI] 40.0-44.9, adult | CPT/HCPCS: 99212 ==

== ENCOUNTER 2024-04-22 09:41 | Outpatient (AMB) | payer MEDICAID, SELFPAY ==
--- NOTE | 2024-04-22 09:56 | A.OFFVIS_ITS ---
VS Expanded 04/22/24 09:57 04/22/24 10:10 Height 5 ft 7 in 5 ft 7 in Weight 280 lb 6.848 oz 280 lb BMI 43.9 43.8 Intake Visit Reasons: T2DM/Confirmed Allergies morphine Allergy (Unknown, Verified 04/02/24 09:10) Anaphylaxis Iodinated Contrast Media [IV Contrast Dye] Allergy (Verified 04/02/24 09:10) Anaphylaxis Nutrition Presentation Details: Pt presents for MNT for T2DM Food frequency fruits: 0-1/d ve x/wk starches +++ pastries+++ protein : 10oz/d dairy: 4 serving/d Pt reports often skipping meals but finds herself snacking on breads/pastries physical activity: daily life etoh/smoking: denies BS Monitoring Most Recent Diabetes Results: Microalb/Creat Ratio 108.8 ug/mg cr (<30) H 03/30/24 Cholesterol 145 mg/dL (<200) 03/30/24 HDL Cholesterol 31 mg/dL (>40) L 03/30/24 Triglycerides 138 mg/dL (<150) 03/30/24 Creatinine 0.83 mg/dL (0.5-1.4) 03/30/24 Blood Urea Nitrogen 12 mg/dL (9-16) 03/30/24 Sodium 141 mmol/L (135-145) 03/30/24 Potassium 3.8 mmol/L (3.3-5.1) 03/30/24 Chloride 108 mmol/L (96-108) 03/30/24 Carbon Dioxide 24 mmol/L (22-29) 03/30/24 Calcium 9.6 mg/dL (8.4-10.2) 03/30/24 AST 26 U/L (5-31) 03/30/24 ALT 18 U/L (0-31) 03/30/24 Total Protein 7.5 g/dL (6.5-8.0) 12/17/23 Albumin 4.0 g/dL (3.5-5.0) 12/17/23 LND-Ttscaho-To.Jeor Equation Height: 5 ft 7 in Weight: 280 lb Resting Metabolic Rate: 1920.49 Calculated Activity Level: Sedentary Calories Needed to Maintain Weight: 2304.59 Diagnosis Nutrition problem #1: food nutri know defi As related to (etiology) #1: diagnosis As evidenced by (sign/symptom) #1: knowledge deficit of diet [facility] Medical History (Updated 02/04/24 @ 15:10 by Kaleigh Augustine MD) HTN (hypertension) HLD (hyperlipidemia) Obesity Diabetes mellitus Subclinical hyperthyroidism Surgical History History of laparoscopic appendectomy H/O tubal ligation Family History Mother Hypertension Thyroid crisis High cholesterol Father Heart problem Social History Alcohol intake: never Patient Tobacco Use Status: Never used Tobacco Assessment & Plan Assessment & Plan (1) Diabetes mellitus: Code(s): E11.9 - Type 2 diabetes mellitus without complications Category: Medical Qualifiers: Diabetes mellitus complication detail: with polyneuropathy Diabetes mellitus complication status: with neurologic complications Diabetes mellitus long-term insulin use: without buttermilk drier operator use Diabetes mellitus type: type 2 Qualified Code(s): E11.42 - Type 2 diabetes mellitus with diabetic polyneuropathy Plan: Wt: 127 Kg ( 05/05 ) Est kcal needs as per MSJ: 2300 (40% carb, 30% protein/fat) Est fluid needs as per 25-30 ml/d: 3800 Est prot per day as per 1 g/kg bw: 127 Recommend fiber intake : 8-10 g per day and gradually increase to 25-28 g per day for women and 35-38 g for men or as tolerated Recommend sodium intake per day : less than 2300 mg Educated patient on: ( R = reviewed V = verbalizes understanding N/R = needs review N/A = not applicable * Food sources of carbohydrate, adequate serving sizes and its role in various health conditions: R * Differences between complex carbohydrates a simple carbohydrates, role of fiber in diet: R V N/R * Lean protein sources of foods: R V NR * Differences between types of fats and role in diet (mono on saturated fat fatty acids, saturated fatty acids, trans fats): R V N/R * Food sources of sodium in salt and healthy modifications for heart health in kidney health: R V R/V * Vitamins and minerals: R V N/R * Healthy plate method concept: R * Physical activity: Benefits a precaution: R V N/R * Hypoglycemia protocol (rule of 15): N/R * Dietary prevention of Hyperglycemia: R Patient Instructions: Work on reducing on snacking and reduce total carbohydrate at meal to less than 80 g of carb following healthy plate method Coding Level of Care Code Nutr Indiv Intake (86677) Diagnoses Type 2 diabetes mellitus with diabetic polyneuropathy, without long-term current use of insulin E11.42 Diabetes mellitus complication detail: with polyneuropathy Diabetes mellitus complication status: with neurologic complications Diabetes mellitus buttermilk drier operator insulin use: without buttermilk drier operator use Diabetes mellitus type: type 2 Time Spent (min) 30
[2024-04-22 09:57] VITALS: BMI 43.9
[2024-04-23 14:42] VITALS: BMI 43.8
== END 2024-04-22 10:29 | disposition home or self-care (01) ==
PROVIDERS: PCP Student in an Organized Health Care Education/Training Program; Visit Provider Dietitian, Registered
DX: E11.42 Type 2 diabetes mellitus with diabetic polyneuropathy (principal)

== ENCOUNTER → 2024-04-22 09:41 | Outpatient (BNVA) | payer MEDICAID, SELFPAY | PROVIDERS: PCP Student in an Organized Health Care Education/Training Program; Visit Provider Dietitian, Registered | DX: E11.42 Type 2 diabetes mellitus with diabetic polyneuropathy (principal); Z71.3 Dietary counseling and surveillance | CPT/HCPCS: 97802 ==

== ENCOUNTER 2024-06-03 10:52 | Outpatient (AMB) | payer MEDICAID, SELFPAY ==
[2024-06-03 10:57] VITALS: BMI 43.8
--- NOTE | 2024-06-03 10:57 | MHC.AMNUTRGE ---
VS Expanded 06/03/24 10:57 Height 5 ft 7 in Weight 279 lb 15.793 oz BMI 43.8 Intake Visit Reasons: T2DM Allergies morphine Allergy (Unknown, Verified 04/02/24 09:10) Anaphylaxis Iodinated Contrast Media [IV Contrast Dye] Allergy (Verified 04/02/24 09:10) Anaphylaxis Nutrition Presentation Details: Pt presents for MNT f/u for T2DM Pt reports working on reducing snacks physical activity: daily life activities etoh/smoking: denies BS Monitoring Most Recent Diabetes Results: Microalb/Creat Ratio 193.7 ug/mg cr (<30) H 05/28/24 Cholesterol 145 mg/dL (<200) 03/30/24 HDL Cholesterol 31 mg/dL (>40) L 03/30/24 Triglycerides 138 mg/dL (<150) 03/30/24 Creatinine 0.80 mg/dL (0.5-1.4) 05/28/24 Blood Urea Nitrogen 13 mg/dL (9-16) 05/28/24 Sodium 139 mmol/L (135-145) 05/28/24 Potassium 4.0 mmol/L (3.3-5.1) 05/28/24 Chloride 107 mmol/L (96-108) 05/28/24 Carbon Dioxide 25 mmol/L (22-29) 05/28/24 Calcium 9.5 mg/dL (8.4-10.2) 05/28/24 AST 26 U/L (5-31) 03/30/24 ALT 18 U/L (0-31) 03/30/24 [facility] Medical History (Updated 02/04/24 @ 15:10 by Kaleigh Augustine MD) HTN (hypertension) HLD (hyperlipidemia) Obesity Diabetes mellitus Subclinical hyperthyroidism Surgical History History of laparoscopic appendectomy H/O tubal ligation Family History Mother Hypertension Thyroid crisis High cholesterol Father Heart problem Social History Alcohol intake: never Patient Tobacco Use Status: Never used Tobacco Assessment & Plan Assessment & Plan (1) Diabetes mellitus: Code(s): E11.9 - Type 2 diabetes mellitus without complications Category: Medical Qualifiers: Diabetes mellitus type: type 2 Diabetes mellitus prison insulin use: without terminal operations manager use Diabetes mellitus complication status: with neurologic complications Diabetes mellitus complication detail: with polyneuropathy Qualified Code(s): E11.42 - Type 2 diabetes mellitus with diabetic polyneuropathy Plan: Wt: 127 Kg ( 05/05 ) Est kcal needs as per MSJ: 2300 (40% carb, 30% protein/fat) Est fluid needs as per 25-30 ml/d: 3800 Est prot per day as per 1 g/kg bw: 127 Recommend fiber intake : 8-10 g per day and gradually increase to 25-28 g per day for women and 35-38 g for men or as tolerated Recommend sodium intake per day : less than 2300 mg Educated patient on: ( R = reviewed V = verbalizes understanding N/R = needs review N/A = not applicable Food sources of carbohydrate, adequate serving sizes and its role in various health conditions: R Differences between complex carbohydrates a simple carbohydrates, role of fiber in diet: R Lean protein sources of foods: R V NR Differences between types of fats and role in diet (mono on saturated fat fatty acids, saturated fatty acids, trans fats): R Food sources of sodium in salt and healthy modifications for heart health in kidney health: R V R/V Vitamins and minerals: R V N/R Healthy plate method concept: R Physical activity: Benefits a precaution: R V N/R Hypoglycemia protocol (rule of 15): N/R Dietary prevention of Hyperglycemia: R Patient Instructions: Choose fiber rich foods ([place] sprouts, asparagus, broccoli, spinach, carrots, beans, oats,squash) Choose fruits as snack 1-[address] of crackers/cookies Keep hydrated by having water with meals/snack to prevent cogitation as you increase fiber Coding Level of Care Code Nutr Indiv Subseq (89679) Diagnoses Type 2 diabetes mellitus with diabetic polyneuropathy, without long-term current use of insulin E11.42 Diabetes mellitus type: type 2 Diabetes mellitus prison insulin use: without terminal operations manager use Diabetes mellitus complication status: with neurologic complications Diabetes mellitus complication detail: with polyneuropathy Time Spent (min) 30
--- OUTSIDE RECORDS SUMMARY | 2024-06-03 12:19 | XMS_ITS | Clinical Summary ---
Author Organization [facility] Address [address] [place] [address] Care Team Providers Care Core Maker Name Role Phone Kayleen Arango MD Primary Care Provider [phone] Surgical History Surgery Date Site/Laterality Comments TUBAL LIGATION PROCEDURE: HISTORICAL TUBAL LIGATION Medical History Medical History Date Comments Pleural effusion 09/28/2016 DX:Pleural effu chase Lung mass 10/04/2016 DX:Lung mass Depression DX:Depression Anemia DX:Anemia Pneumonia DX:Pneumonia Esophageal reflux DX:Esophageal reflux Social History Tobacco Use Types Packs/Day Years Used Date Smoking Tobacco: Never Alcohol Use Standard Drinks/Week Comments Never 0 (1 standard drink = 0.6 oz pur e alcohol) Sex and Gender Information Value Date Recorded Sex Assigned at Not on file Gender Identity Not on file Sexual Orientation Not on file Obstetrics History Last Filed Vital Signs Vital Sign Reading Time Taken Comments Blood Pressure 133/85 09/12/2021 2:34 PM EDT Pulse 71 09/12/2021 2:34 PM EDT Temperature - - Respiratory Rate - - Oxygen Saturation - - Inhaled Oxygen Concentration - - Weight 133 kg (294 lb 1.3 oz) 09/12/2021 2:34 PM EDT Height 170.2 cm (5' 7 ) 09/12/2021 2:34 PM EDT Body Mass Index 46.06 09/12/2021 2:34 PM EDT Plan of Treatment Health Maintenance Due Date Last Done Comments Breast Cancer Screening 1972 DTaP,Tdap,and Td Vaccines (1 - Tdap) 1991 Hepatitis B Vaccines (1 of 3 - 19+ 3-dose series) 1991 Cervical Cancer Screening: P ap Smear 1993 Colorectal Cancer Screening: Colonoscopy 04/22/2022 Depression Screening 04/22/2022 HIV Screening 04/22/2022 Hepatitis C Screening 04/22/2022 Social Influencers of Health Screening 04/22/2022 Zoster Vaccines (1 of 2) 2022 COVID-19 Vaccine (2023-2 5 season) 2024 Influenza Vaccine (#1) 2024 HIB Vaccines Aged Out No longer eligi ble based on patient's age to complete this topic HPV Vaccines Aged Out No longer eligi ble based on patient's age to complete this topic Hepatitis A Vaccines Aged Out No long er eligible based on patient's age to complete this topic IPV Vaccines Aged Out No longer eligi ble based on patient's age to complete this topic MMR Vaccines Aged Out No longer eligi ble based on patient's age to complete this topic Meningococcal ACWY Vaccine Aged Out N o longer eligible based on patient's age to complete this topic Pneumococcal Vaccine: Pediat rics (0 to 5 Years) and At-Risk Patients (6 to 64 Years) Aged Out No longer eligible b ased on patient's age to complete this topic RSV Immunization Patients Un abigail 20 months Aged Out No longer eligible b ased on patient's age to complete this topic Varicella Vaccines Aged Out No longer eligible based on patient's age to complete this topic Care Teams Core Maker Relationship Specialty Start Date End Date Kayleen Arango MD [address] [place] [id number] PCP - General 07/05/14
--- OUTSIDE RECORDS SUMMARY | 2024-06-03 12:19 | XMS_ITS | Clinical Summary ---
Author Organization [employer] Address [address] [facility] 7t [place] [address] Care Team Providers Care Ship Scraper Name Role Phone Kayleen Arango MD Primary Care Provider [phone] Allergies Active Allergy Reactions Criticality Noted Date Comments Iodinated Contrast Media Syncope High 09/18/2023 Hypotension, v/d Morphine Shortness of breath High 05/18/2013 Medications cholecalcifero l (Vitamin D-3) 25 MCG (1000 UT) tabletIndicati ons:Vitamin D deficiency Take 1 tablet (25 mcg) by mouth in the morning. 30 tablet 04/23/20 22 Active valsartan-hydr oCHLOROthiazid e (Diovan-HCT) 80-12.5 MG tablet TAKE 1 TABLET BY MOUTH ONCE A DAY FOR 90 DAYS 04/19/20 22 Active Spiriva HandiHaler 18 MCG inhalation capsule INHALE CONTENTS OF 1 CAPSULE EVERY DAY 05/17/19 23 Active montelukast (Singulair) 10 MG tablet Take 10 mg by mouth at bedtime. 01/31/20 22 Active Symbicort 160-4.5 MCG/ACT inhaler Inhale 2 puffs 2 times daily. 10/16/19 22 Active aspirin 81 MG chewable tablet Chew 1 tablet at bed time. 07/15/19 22 Active Ventolin HFA 108 (90 Base) MCG/ACT inhaler INHALE 2 PUFFS BY MOUTH 3 TIMES A DAY NEEDED FOR WHEEZING/SHOR TNESS OF BREATH 04/18/20 22 Active hydrALAZINE (Apresoline) 10 MG tablet Take 1 tablet (10 mg) by mouth in the morning. 90 tablet 2 08/16/19 23 Active Flovent HFA 110 MCG/ACT inhaler INHALE 1 PUFF BY MOUTH 2 TIMES EVERY DAY 12 g 2 08/17/19 23 Active cloNIDine (Catapres) 0.1 MG tablet Take 1 tablet (0.1 mg) by mouth 3 times daily. 90 tablet 11 12/20/19 23 Active omeprazole (PriLOSEC) [address] capsule TAKE 1 CAPSULE BY MOUTH EVERY DAY 90 capsule 3 06/24/19 24 Active baclofen (Lioresal) 10 MG tablet Take one tablet TID PRN 30 tablet 09/18/19 24 Active Mometasone Furoate (Asmanex HFA) 200 MCG/ACT aerosol Use 1 puff BID 13 g 2 12/13/19 24 Active meloxicam (Mobic) 7.5 MG tablet Take 1 tablet (7.5 mg) by mouth 2 times daily. 60 tablet 12/16/19 24 Active metFORMIN (Glucophage) 500 MG tablet Take 1 tablet (500 mg) by mouth with breakfast and with evening meal. 60 tablet 12/18/19 24 025 Active empagliflozin (Jardiance) 10 MG Take 1 tablet (10 mg) by mouth Once per day. 30 tablet 12/24/19 24 025 Active Blood Glucose Monitoring Suppl (FreeStyle [place] Lite) w/Device kitIndications :New onset type 2 diabetes mellitus (CMS/HCC) Use to test blood sugar 2 times daily 1 kit 12/24/19 24 Active FREESTYLE LITE test stripIndicatio ns:New onset type 2 diabetes mellitus (CMS/HCC) Use to test blood sugar 2 times daily 100 each 12/24/19 24 025 Active Alcohol Swabs 70 % padsIndication s:New onset type 2 diabetes mellitus (CMS/HCC) Use to test blood sugar 2 times daily 100 each 12/24/19 24 Active simvastatin (Zocor) 20 MG tablet Take 1 tablet (20 mg) by mouth at bedtime. 30 tablet 12/24/19 24 025 Active FreeStyle lancetsIndicat ions:New onset type 2 diabetes mellitus (CMS/HCC) 1 each by Other route 2 times daily. 100 each 12/31/19 24 025 Active acetaminophen (Tylenol 8 Hour) 650 MG ER tabletIndicati ons:Chronic bilateral thoracic back pain TAKE 1 TAB BY MOUTH EVERY 8 HOURS IF NEEDED FOR MILD PAIN FOR UP TO 10 DAYS DONT CRUSH, CHEW OR SPIT 90 tablet 3 01/02/20 24 Active Diclofenac Sodium 1 % gel TAKE 2 GRAMS (TOPICAL) 4 TIMES PER DAY FOR 10 DAYS 100 g 01/09/20 24 Active Semaglutide-We ight Management (Wegovy) 0.25 MG/0.5ML solution auto-injector Inject 0.25 mg under the skin 1 (one) time per week. 0.5 mL 3 03/04/20 24 Active ibuprofen 800 MG tablet TAKE 1 TABLET BY MOUTH EVERY 8 HOURS NEEDED FOR FEVER OR MODERATE PAIN 30 tablet 05/12/20 24 Active ibuprofen 800 MG tablet Take 1 tablet (800 mg) by mouth every 8 (eight) hours if needed for moderate pain or fever. 30 tablet 09/18/19 24 024 Discontinued Active Problems Problem Noted Date Diagnosed Date Type 2 diabetes mellitus wit hout complication, without long-term current use of insulin 03/04/2024 Fibromyalgia 12/16/2023 Left hand pain 10/16/2023 Assessment & Plan (10/16/2023 2:52 PM EDT): - Likely mechanical injury but also possible bug bite - X-rays ordered - Advised rest and ice packs for pain, and will apply a hand wrap - Recommend if it does not improve she should call back and we will refer to a hand specialist for further evaluation Asthma 06/07/2022 Severe obesity 06/07/2022 Primary hypertension 06/07/2022 Encounters Date Type Department Care Team Description 06/02/2024 Refill [facility] [address] [place] [address] Kayleen Arango MD New onset type 2 diabetes mellitus (CMS/HCC) 05/12/2024 Refill [facility] [address] [place] [address] Tammy Scott FNP 05/04/2024 Telephone [facility] [address] [place] [address] Kayleen Arango MD Chart prep 03/04/2024 10:00 AM EDT Office Visit [facility] [address] [place] [address] Kayleen Arango MD Primary hypertension (Primary Dx); Type 2 diabetes mellitus without complication, without long-term current use of insulin (CMS/HCC); Mild intermittent asthma without complication; Severe obesity (CMS/HCC) 03/04/2024 Telephone [facility] [address] [place] [address] Kayleen Arango MD Prior Authorization 03/04/2024 Travel from Last 3 Months Immunizations Name Administration Dates Next Due Tdap 12/02/2018 Social History Tobacco Use Types Packs/Day Years Used Date Smoking Tobacco: Never Smokeless Tobacco: Never Tobacco Cessation:Counseling Given: Not Answered Alcohol Use Standard Drinks/Week Comments Never 0 (1 standard drink = 0.6 oz pur e alcohol) Depression Answer Date Recorded Patient Health Questionnaire-9 Score 0 12/19/2022 Housing Stability Answer Date Recorded What is your housing situation today? I have [place] 02/17/[address] you li ve. Do you have problems with any of the following? No or not working smoke detectors;None of the above 02/17/2023 Food Insecurity Answer Date Recorded Within the past 12 months, y ou worried that your food would run out before you got money to buy more: Never True 03/07/2023 Within the past 12 months,th e food you bought just didn't last and you didn't have enough money to get more: Never True Transportation Answer Date Recorded In the past 12 months, has l ack of transportation kept you from medical appts, meetings, work or from getting things needed for daily living? No 03/07/2023 Utilities Answer Date Recorded In the past 12 months, has t he electric, gas, oil or water [employer] threatened to shut off services in your home? No 03/07/2023 Depression Answer Date Recorded Patient Health Questionnaire-2 Score 0 12/19/2022 Comments Unknown Sex and Gender Information Value Date Recorded Sex Assigned at Female 03/12/2022 10:20 AM EDT Legal Sex Female 10:20 AM EDT Gender Identity Female 03/12/2022 10:20 AM EDT Sexual Orientation Straight 03/12/2022 10 :20 AM EDT Last Filed Vital Signs Vital Sign Reading Time Taken Comments Blood Pressure 120/69 03/04/2024 10:01 AM EDT Pulse 71 03/04/2024 10:01 AM EDT Temperature 36.7 ??C (98 ??F) 03/04/2024 10:01 AM EDT Respiratory Rate 18 03/04/2024 10:01 AM EDT Oxygen Saturation 93% 12/24/2023 3:29 PM EDT Inhaled Oxygen Concentration - - Weight 127 kg (281 lb) 03/04/2024 10:01 AM EDT Height 170.2 cm (5' 7 ) 03/04/2024 10:01 AM EDT Body Mass Index 44.01 03/04/2024 10:01 AM EDT Plan of Treatment Health Maintenance Due Date Last Done Comments CT Colonography 1972 Colonoscopy 1972 Colorectal Cancer Screening 1972 FIT DNA/Cologuard 1972 FIT 1972 FOBT 1972 HIV Screening 1972 Sigmoidoscopy 1972 Pneumococcal Vaccine: Pediatrics (0 to 5 Years) and At-Risk Patients (6 to 64 Years) (1 of 2 - PCV) 1978 Diabetes: Foot Exam 1982 Eye Exam 1982 Alcohol/Substance Use Screening 1984 Family Planning (PISQ) 1987 Hepatitis C Screening 1990 Diabetes: Urine Protein Screening 1991 Hepatitis B Vaccines (1 of 3 - 19+ 3-dose series) 1991 Pap Smear 1993 Cervical Cancer Screening 2002 HPV/Cotest 2002 Mammogram 09/15/2021 09/16/2019 Zoster Vaccines (1 of 2) 2022 Depression Screening 12/20/2023 12/19/2022, 12/20/19 23 SDOH Screening 12/20/2023 12/19/2022 COVID-19 Vaccine ( season) 2024 05/09/2023, 11/26/2021, 02/14/2021, Additional history exists Influenza Vaccine (#1) 2024 Diabetes: Hemoglobin A1C 03/21/2024 12/20/2023 Lipid Panel 12/16/2024 12/17/2023, 09/10, 04/20/2021, Additional history exists Tobacco Screening 03/04/2025 03/04/2024 DTaP/Tdap/Td Vaccines (2 - Td or Tdap) 12/02/2028 12/02/2018 RSV Patients and Patients Aged 60 years or older (1 - 1-dose 75+ series) 2047 HIB Vaccines Aged Out No longer eligi [...] patient's age to complete this topic Meningococcal Vaccine Aged Out No nicholas nazario eligible based on patient's age to complete this topic RSV under 20 months Aged Out No longe r eligible based on patient's age to complete this topic Rotavirus Vaccines Aged Out No longer eligible based on patient's age to complete this topic Procedures Procedure Name Priority Date/Time Associated Diagnosis Comments POCT GLUCOSE Routine 03/04/2024 10:03 AM EDT Type 2 diabetes mellitus without complication, without long-term current use of insulin ([facility]) HEMOGLOBIN A1C Routine 12/20/2023 8:48 AM EDT Primary hypertension LIPID PANEL, STANDARD Routine 12/17/2023 8:55 AM EDT Primary hypertension BI MAMMOGRAM DIAGNOSTIC BILATERAL Routine 09/16/2019 10:49 AM EDT from Last 3 Months or Most Recently Relevant to Health Maintenance Results * (ABNORMAL) POCT Glucose (03/04/2024 10:03 AM EDT) Glucose Blood, POC 237(A) 60 - 200 mg/dL QC Media Lot # [id number] Lot# Expiration Date ,[id number] Blood Capillary blood specimen / Unknown 03/04/2024 10:03 AM EDT Kayleen Arango MD POINT OF CARE TEST ENTER/EDIT OR DERABLES Final Result * (ABNORMAL) Hemoglobin A1c (12/20/2023 8:48 AM EDT) Hemoglobin A1c 7.5(H) <6.0 % [facility] Comment:Hemoglobin A1C Refer ence Range Adults: 4.8 - 6.0 % Non diabetic: < 6.0 % Goal: < 7.0 %Additional Action Suggested: > 8.0 %Note: Hemoglobin A1c results are invalid for patients with abnormal amounts of HbF. Blood transfusions may impact the HbA1c concentration in the patient sample. Estimated Average Glucose 169 mg/dL [facility] Comment:eAG = Estimated ave rage glucose which is %A1C expressed asaverage glucose, using the formula of the O2Y-VtkvqsmInrliho Glucose study (ADAG), Diabetes Care, Vol.31,#8,Dec. 2007 Blood Venous blood specimen / Unknown 12/20/2023 8:48 AM EDT 12/20/2023 1:58 PM EDT us Kayleen Arango MD LAB BLOOD ORDERABLES Final Resul t [facility] [address] [place] [address] [phone] * (ABNORMAL) Lipid Panel, Standard (12/17/2023 8:55 AM EDT) Triglycerides 200(H) <150 mg/dL [facility] Comment:Desirable Triglyceri de: less than 150 mg/dLBorderline High Triglyceride 150-199 mg/dLHigh Triglyceride: 200-499 mg/dLVery High Triglyceride: greater than or equal to 5OO mg/dL Cholesterol 226(H) <200 mg/dL [facility] Comment:Desirable Cholestero l: less than 200 mg/dLBorderline High Cholesterol: 200-239 mg/dLHigh Cholesterol: greater than 239 mg/dL LDL Cholesterol Calculated 148(H) <100 mg/dL [facility] Comment:Desirable LDL: less than 100 mg/dLNear Optimal/Above Optimal LDL: 110- 129 mg/dLBorderline High LDL: 130-159 mg/dLHigh LDL: 160-189 mg/dLVery High LDL: greater than or equal to 190 mg/dL HDL Cholesterol 38(L) >40 mg/dL [facility] Comment:Desirable HDL: great er than 40 mg/dL Note: This HDL assay may give artificially low results in patients with liver disease. Blood Venous blood specimen / Unknown 12/17/2023 8:55 AM EDT 12/17/2023 2:02 PM EDT Kayleen Arango MD LAB BLOOD ORDERABLES Final Resul t [facility] [address] [place] [phone] * 3D BILATERAL DIAGN MAMMO 1 (09/16/2019 10:49 AM EDT) Anatomical Region Laterality Modality Breast Bilateral Mammography 09/16/2019 10:4 9 AM EDT Narrative 09/16/2019 10:51 AM EDT Refer to the Notes tab for result details [facility] Procedure: 3D BILATERAL DIAGN MAMMO 1 Procedure Note Provider, MD [place] - 08/04/2022 Refer to the Notes tab for result details [facility] Procedure: 3D BILATERAL DIAGN MAMMO 1 Kayleen Arango MD IMG BI PROCEDURES Final Result from Last 3 Months or Most Recently Relevant to Health Maintenance Insurance [facility] C3 Care Teams Ship Scraper Relationship Specialty Start Date End Date Kayleen Arango MD [address] [place] [phone] PCP - General Family Medicine 06/23/13
--- OUTSIDE RECORDS SUMMARY | 2024-06-03 12:19 | XMS_ITS | Encounter Summary ---
Author Organization [employer] Address [address] [facility] 7t [place] [address] Care Team Providers Care Director Software Development Name Role Phone Kayleen Arango MD Primary Care Provider [phone] Reason for Visit * Reason Comments Med Refill Encounter Details Date Type Department Care Team ([facility] Contact Info) Description 06/02/2024 Refill [facility] [address] [place], [place] [phone] Kayleen Arango MD [address] [place] [address] New onset type 2 diabetes mellitus (CMS/HCC) Social History Tobacco Use Types Packs/Day Years Used Date Smoking Tobacco: Never Smokeless Tobacco: Never Alcohol Use Standard Drinks/Week Comments [...] t he electric, gas, oil or water company threatened to shut off services in your home? No 03/07/2023 Depression Answer Date Recorded Patient Health Questionnaire-2 Score 0 12/19/2022 Comments Unknown Sex and Gender Information Value Date Recorded Sex Assigned at Female 03/12/2022 10:20 AM EDT Legal Sex Female 10:20 AM EDT Gender Identity Female 03/12/2022 10:20 AM EDT Sexual Orientation Straight 03/12/2022 10 :20 AM EDT documented as of this encounter Plan of Treatment Not on file documented as of this encounter Visit Diagnoses Diagnosis New onset type 2 diabetes mellitus (CMS/HCC) documented in this encounter Additional Health Concerns Assessment Noted Time PHQ-9 Depression Total Score: 0 12/20/19 9:29 AM EDT documented as of this encounter Care Teams Director Software Development Relationship Specialty Start Date End Date Kayleen Arango MD [address] [place] [phone] PCP - General Family Medicine 06/23/13 documented as of this encounter
--- OUTSIDE RECORDS SUMMARY | 2024-06-03 12:20 | XMS_ITS | Encounter Summary ---
Author Organization [employer] Address [address] [facility] [address] [place] [address] Care Team Providers Care Mill Roll Rewinder Name Role Phone Kayleen Arango MD Primary Care Provider [phone] Reason for Visit * Reason Onset Date Comments Nurse Triage 12/31/2023 Encounter Details Date Type Department Care Team ([facility] st Contact Info) Description 12/31/2023 Telephone [facility] [address] [place] [address] Kayleen Arango MD [address] [place] [address] Nurse Triage Social History Tobacco Use Types Packs/Day Years [...] past 12 months, has t he electric, [employer], [employer] or water [employer] threatened to shut off services in your home? No 03/07/2023 Depression Answer Date Recorded Patient Health Questionnaire-2 Score 0 12/19/2022 Comments Unknown Sex and Gender Information Value Date Recorded Sex Assigned at Female 03/12/2022 10:20 AM EDT Legal Sex Female 10:20 AM EDT Gender Identity Female 03/12/2022 10:20 AM EDT Sexual Orientation Straight 03/12/2022 10 :20 AM EDT documented as of this encounter Miscellaneous Notes * Telephone Encounter - Liliana Owens RN - 12/31/2023 12:34 PM EDT Triage call Pt reports blood sugar was 235 this morning. This is the first time Pt has taken BS with freestyle device kit. Pt is asymptomatic. Pt continues to take jardiance as prescribed and no longis taking metformin. Pt home care and diet is reviewed. Pt is advised to take Blood sugar before breakfast in the morning and if continues to be over 200 to call back for follow up. Pt does have scheduled F/U apt 02/04/24 with PCP. PT agrees with this plan and disposition. Protocol Used: Diabetes - High Blood Sugar (Adult) Protocol-Based Disposition: Home Care Positive Triage Question: * Blood glucose 70 - 240 mg/dL (3.9 -13.3 mmol/L) * All higher-acuity triage questions were negative Care Advice Discussed: * High Blood Sugar (Hyperglycemia) * Treatment - Liquids * Diabetes Pills * Measure and Record Your Blood Glucose * Daily Blood Glucose Goals * Reasons To Call Back - Blood glucose over 300 mg/dL (16.7 mmol/L), two or more times in a row. - Urine ketones become moderate or large (or more than 1+); if you check blood ketones, blood ketone test is over 1.4 mmol/L - Vomiting lasting over 4 hours or unable to drink any fluids - Rapid breathing occurs - You have more questions - You become worse * Telephone Encounter - Kathrynjonas Mobley Rosanne - 12/31/2023 12:17 PM EDT Symptom: High Blood Sugar - Caller Reports Outcome: Schedule an urgent appointment (within 1 hour) or talk to a nurse or provider soon Reason: Getting worse The caller accepted this outcome documented in this encounter Plan of Treatment Not on file documented as of this encounter Visit Diagnoses Not on filedocumented in this encounter Additional Health Concerns Assessment Noted Time PHQ-9 Depression Total Score: 0 12/20/19 23 9:29 AM EDT documented as of this encounter Care Teams Mill Roll Rewinder Relationship Specialty Start Date End Date Kayleen Arango MD [address] [place] [phone] PCP - General Family Medicine 06/23/13 documented as of this encounter
--- OUTSIDE RECORDS SUMMARY | 2024-06-03 12:20 | XMS_ITS | Encounter Summary ---
Author Organization [email or web address] Address [address] [address] [place] [address] Care Team Providers Care Fish Packer Name Role Phone Kayleen Arango MD Primary Care Provider [phone] Reason for Visit * Reason Onset Date Comments Nurse Triage 10/18/2023 Encounter Details Date Type Department Care Team ([facility] st Contact Info) Description 10/18/2023 Telephone [facility] [address] [place] [address] Kayleen Arango MD [address] [place] [address] Nurse Triage Social History Tobacco Use Types [...] past 12 months, has t he electric, [employer], oil or water [employer] threatened to shut off services in your [...] encounter Miscellaneous Notes * Telephone Encounter - Erika Marin LPN - 10/18/2023 3:40 PM EDT Triage call returned to patient with pacific Card Grinder [id number] patient was seen in [facility] and treated for hand injury. Has been using ice was told that a RX would be called for pain to pharmacy. Not indicated in visit note. Xrays completed and reported normal. Patient with continued swelling and pain 7-8/10 using RX ibuprofen 4 times a day. Note indicates that patient may need referral to hand specialist. Note forwarded to PCP for review and further advice. RX on file is accurate. Protocol Used: Hand and Wrist Pain (Adult) Protocol-Based Disposition: Go to Office or Video Visit Now Override (Final) Disposition: Discuss with PCP and Callback by Nurse Today Override Reason: Already seen and worse Override Notes: Seen 6/5 no improvement and pain 8/10 Positive Triage Question: * Severe pain (e.g., excruciating, unable to use hand at all) * All higher-acuity triage questions were negative Care Advice Discussed: * Pain Medicines * Pain Medicines - Extra Notes and Warnings * Reasons To Call Back - Moderate pain (e.g., interferes with normal activities) lasts more than 3 days - Signs of infection occur (e.g., spreading redness, warmth, fever) - You become worse * Use a Cold Pack for Pain * Rest * Reasons To Call Back - You become worse * Telephone Encounter - Kaz Silver - 10/18/2023 2:57 PM EDT Symptoms: Hand or Wrist Pain - Not From Injury, Hand or Wrist Swelling Outcome: Schedule an urgent appointment (within 1 hour) or talk to a nurse or provider soon Reason: Severe pain now The caller accepted this outcome Patient speaks uzbek and was seen on 10/15 for this symptoms and is not getting any better documented in this encounter Plan of Treatment Not on file documented as of this encounter Visit Diagnoses Not on filedocumented in this encounter Additional Health Concerns Assessment Noted Time PHQ-9 Depression Total Score: 0 12/20/19 23 9:29 AM EDT documented as of this encounter Care Teams Fish Packer Relationship Specialty Start Date End Date Kayleen Arango MD [address] [place] [phone] PCP - General Family Medicine 06/23/13 documented as of this encounter
--- OUTSIDE RECORDS SUMMARY | 2024-06-03 12:20 | XMS_ITS | Encounter Summary ---
Author Organization [employer] Address 75 [facility] 7t [place] [address] Care Team Providers Care Instrument Calibrator Name Role Phone Kayleen Arango MD Primary Care Provider [phone] Reason for Visit * Reason Onset Date Comments Chart prep 05/04/2024 Encounter Details Date Type Department Care Team ([facility] Contact Info) Description 05/04/2024 Telephone [facility] CHC MED & PEDS [address] [place], [place] [id number] Kayleen Arango MD [address] [place] [address] Chart prep Social History Tobacco Use Types Packs/Day Years Used Date Smoking Tobacco: Never Smokeless Tobacco: Never Alcohol Use Standard Drinks/Week Comments Never 0 (1 standard drink = 0.6 oz pur e alcohol) Depression Answer Date Recorded Patient Health Questionnaire-9 Score 0 12/19/2022 Housing Stability Answer Date Recorded What is your housing situation today? I have nitinshalini corral 02/17/[address] you [...] encounter Miscellaneous Notes * Telephone Encounter - Sada Wright MA - 05/04/2024 10:50 AM EST Chart Prep Labs: done Images: done Vaccines due: yes Referrals: complete Screenings: mammogram , pap smear , Foot Exam Overdue care gaps: A1C, Glucose, Sbirt, SDOH, PHQ-9 documented in this encounter Plan of Treatment Not on file documented as of this encounter Visit Diagnoses Not on filedocumented in this encounter Additional Health Concerns Assessment Noted Time PHQ-9 Depression Total Score: 0 12/20/19 9:29 AM EDT documented as of this encounter Care Teams Instrument Calibrator Relationship Specialty Start Date End Date Kayleen Arango MD [address] [place] [address] PCP - General Family Medicine 06/23/13 documented as of this encounter
--- OUTSIDE RECORDS SUMMARY | 2024-06-03 12:20 | XMS_ITS | Encounter Summary ---
Author Organization [employer] Address 75 [facility] 7t [place] [address] Care Team Providers Care Lead Technical Architect Name Role Phone Kayleen Arango MD Primary Care Provider [phone] Reason for Visit * Reason Onset Date Comments Appointment Request 06/27/2023 Encounter Details Date Type Department Care Team ([facility] Contact Info) Description 06/27/2023 Telephone [facility] CHC MED & PEDS [address] [place], [place] [id number] Kayleen Arango MD [address] [place] [address] Appointment Request Social History Tobacco Use Types Packs/Day Years [...] encounter Miscellaneous Notes * Telephone Encounter - Mere Mobley Rosanne - 06/27/2023 11:38 AM EST Tc from pt requesting a follow up appt with PCP for a her current diagnostics. Please contact pt @ [phone] Egyptian Speaker documented in this encounter Plan of Treatment Not on file documented as of this encounter Visit Diagnoses Not on filedocumented in this encounter Additional Health Concerns Assessment Noted Time PHQ-9 Depression Total Score: 0 12/20/19 23 9:29 AM EDT documented as of this encounter Care Teams Lead Technical Architect Relationship Specialty Start Date End Date Kayleen Arango MD [address] [place] [id number] PCP - General Family Medicine 06/23/13 documented as of this encounter
--- OUTSIDE RECORDS SUMMARY | 2024-06-03 12:20 | XMS_ITS | Encounter Summary ---
Author Organization [employer] Address [address] [facility] [address] 7[address] [place] [address] Care Team Providers Care Shop Teacher Name Role Phone Kayleen Arango MD Primary Care Provider [phone] Reason for Visit * Reason Comments Med Refill Encounter Details Date Type Department Care Team ([facility] st Contact Info) Description 05/12/2024 Refill [facility] [address] [place] [address] Tammy Scott FNP Social History Tobacco Use Types Packs/Day Years [...] documented as of this encounter Care Teams Shop Teacher Relationship Specialty Start Date End Date Kayleen Arango MD [address] [place] [address] PCP - General Family Medicine 06/23/13 documented as of this encounter
== END 2024-06-03 14:30 | disposition home or self-care (01) ==
PROVIDERS: PCP Student in an Organized Health Care Education/Training Program; Visit Provider Dietitian, Registered
DX: E11.42 Type 2 diabetes mellitus with diabetic polyneuropathy (principal)

== ENCOUNTER → 2024-06-03 10:52 | Outpatient (BNVA) | payer MEDICAID, SELFPAY | PROVIDERS: PCP Student in an Organized Health Care Education/Training Program; Visit Provider Dietitian, Registered | DX: E11.42 Type 2 diabetes mellitus with diabetic polyneuropathy (principal); Z71.3 Dietary counseling and surveillance | CPT/HCPCS: 97803 ==

== ENCOUNTER → 2024-07-03 08:59 | Outpatient (BNVA) | payer MEDICAID, SELFPAY | PROVIDERS: PCP Student in an Organized Health Care Education/Training Program; Visit Provider Student in an Organized Health Care Education/Training Program ==

== ENCOUNTER 2024-07-24 10:09 | Outpatient (AMB) | payer MEDICAID, SELFPAY ==
[2024-07-24 10:21] VITALS: BP 120/70; PULSE 70; O2SAT 97; BMI 44.9
--- NOTE | 2024-07-24 10:21 | A.OFFVIS_ITS ---
Vital Signs 3 07/24/24 10:21 Height 5 ft 7 in Weight 287 lb BMI 44.9 BP 120/70 Blood Pressure Location Rt brachial Position Sitting Pulse 70 Pulse Source Pulse Oximeter Pulse Oximetry (%) 97 Oxygen Delivery Method Room Air Intake Visit Reasons: T2DM Intake Note: Patient present today for Type 2 Diabetes Mellitus Last Diabetic eye exam:Many years ago needs one Last Podiatry Visit: needs one Random Glucose: 174 HgA1C: 6.6% 05/28/24 Supervisor [employer] Name: [id number] Information Interpreted: non-clinical & clinical Allergies morphine Allergy (Unknown, Verified 07/24/24 10:22) Anaphylaxis Iodinated Contrast Media [IV Contrast Dye] Allergy (Verified 07/24/24 10:22) Anaphylaxis Medication List - Last Reconciled 07/24/24 by Kaleigh Augustine MD acetaminophen ER 650 mg PO Q8H PRN albuterol sulfate 90 mcg/actuation (Ventolin HFA) 2 puffs inhalation TID PRN carvedilol 12.5 mg PO BID diclofenac sodium 1% 2 grams topical QID dulaglutide (Trulicity) 0.75 mg (0.5 mL) subcut QWEEK empagliflozin (Jardiance) 10 mg PO DAILY fluconazole 150 mg PO Q3D 2 doses ibuprofen 800 mg PO Q8H PRN mometasone 200 mcg/actuation (Asmanex HFA) 1 puff inhalation BID montelukast 10 mg PO QPM simvastatin 20 mg PO BEDTIME tiotropium bromide (Spiriva with HandiHaler) 1 cap inhalation DAILY valsartan 160 mg PO BID HPI Comments Details: 53-year-old female coming in today for follow up of type 2 diabetes mellitus and thyroid dysfunction which has resolved. Type 2 diabetes mellitus without long-term insulin use Type 2 diabetes mellitus Diagnosed December 2023 New onset Hba1c 7.5 % Aug202303/30/24 : A1c 7 % 05/28/24: A1c 6.6% SMBGs: Did nt bring in glucometer again today Fasting number she recalled 190s Random Glucose: 174 Never hospitalised for low or high blood sugars Complains of increased urination, increased thirst. Exercise: none Weight BMI 45 kg/m2 Weight : Gained 8 lb since May 2024. Saw the transition nurse. We had prescribed her Wegovy which got denied by her insurance. Prescribed Trulicity 0.75 mg weekly in June 2024 Food : Homemaker Wakes up at 6 or 7 AM Breakfast 9 to 11 AM 4-5 crackers with coffee, with milk and sugar 2 teaspoons Lunch at 1-2 pm : sandwich , very variable Dinner: 5 pm : rice, pasta with veggies with meat Mostly home made meals has eliminated sugary drinks, met with transition nurse Exercise :manjinder twice a week 1 hr Medications Jaridiance 10 mg daily started December 2023 Trulicity 0.75 mg weekly, she has the medicine just hasnt started it yet Prior medicine She was on OZempic 0.25 mg weekly for 4 weeks and then insurance denied it She got a UTI in February 2024 , took antibiotics for it , resolved I gave her fluconazole 150 mg daily 03/28 No denies any itching Prior medications Could not tolerate metformin ( only took it for a week) , explosive diarrhea Family history: mother, maternal grandmother, sisters have type 2 DM No history of pancreatitis No family history of medullary thyroid cancer Complications Last Diabetic eye exam:Many years ago needs one Last Podiatry Visit: needs one Eye doctor: none recently, no history of retinopathy Neuropathy: has numbness and tingling in feet since 2 years No kidney disease No stroke or heart attack Alcohol: none MASLD evaluation FIB 4 index score 1.37 based on labs in May 2024, NAFLD score also at 1.37. EKATERINA/ ARB: On valsartan 160 mg daily, urine microalbumin 193 05/28/24 HLD: On simvastatin 20 mg daily , LDL 87 mg/dl 04/05 Subclinical hyperthyroidism: Resolved Labs from 12/20/2023 showed TSH of 0.11 uIU per mL, with free T4 of 1.10 ng/dL. No prior history of thyroid disease. Complaining of some heat intolerance. Complaining of palpitations a year , evaluated by cardiology says all studies were normal. Sees Dr. Jon Lindo in [address] Chronic anxiety. Low energy Denies diarrhea or constipation, hair loss, no weight changes, changes in appearance of eyes or vision changes, tremors, increased diaphoresis or dry skin. ? Patient denies any difficulty swallowing, pain on swallowing or voice changes or difficulty breathing. Patient denies any history of childhood neck radiation. Denies having ever used lithium, amiodarone or biotin supplements. Patient denies any family history of thyroid cancer. Mother , maternal grandmother , maternal aunts have thyroid disease. She is not sure what but they have had thyroid surgery . Has history of tibial fracture 18 years ago, slipped on ice. No history of heart disease or stroke. Denies any viral illness when testing was done. No exposure to contrast . Interval history Repeat labs 05/28/2024 showed normal TSH, normal free T4, normal total T3, TSI and TSH receptor antibodies undetectable. Physical exam General: sitting comfortably in bed in no acute distress HEENT: normocephalic/atraumatic, moist oral mucosa Neck: supple, symmetrical, no thyromegaly Cardiac: normal heart sounds Pulm: normal breath sounds B/L, no added breath sounds Abd: not distended, no tenderness Extremities: no edema, no signs of myxedema, no tremors Neuro: AAO x3, Speech: normal, no facial droop, moving all 4 extremities foot exam: Skin sloughing noted. Right big toe got injured, and has a broken nail, no left big toe looks like fungal infection. Intact sensation to monofilament, warm and well-perfused, intact pulses Laboratory Tests 12/20/23 12/20/23 03/30/24 08:46 08:48 09:01 Creatinine 0.83 Estimated GFR > 60 Hemoglobin A1c % 7.5 H 7.0 H Triglycerides 138 Cholesterol 145 LDL Cholesterol, Calc 87 HDL Cholesterol 31 L TSH 0.11 L Free T4 1.10 Laboratory Tests 03/30/24 03/30/24 05/28/24 09:01 09:10 09:27 Plt Count 233 Sodium 139 Potassium 4.0 Creatinine 0.80 Estimated GFR > 60 Hemoglobin A1c % 7.0 H 6.6 H Calcium 9.5 AST 26 ALT 18 Triglycerides 138 Cholesterol 145 LDL Cholesterol, Calc 87 HDL Cholesterol 31 L TSH 1.73 Free T4 1.01 Total T3 125 Thyroid Stim Immunoglob <89 Urine Creatinine 133.18 97.57 Urine Microalbumin 145.0 189.0 Microalb/Creat Ratio 108.8 H 193.7 H TSH Receptor Ab <1.00 [facility] Medical History (Updated 07/24/24 @ 10:55 by Kaleigh Augustine MD) Metabolic dysfunction-associated fatty liver disease (MAFLD) HTN (hypertension) HLD (hyperlipidemia) Obesity Diabetes mellitus Subclinical hyperthyroidism Surgical History History of laparoscopic appendectomy H/O tubal ligation Family History Mother Hypertension Thyroid crisis High cholesterol Father Heart problem Social History Alcohol intake: never Patient Tobacco Use Status: Never used Tobacco Assessment & Plan Assessment & Plan (1) Diabetes mellitus: Code(s): E11.9 - Type 2 diabetes mellitus without complications Category: Medical Qualifiers: Diabetes mellitus complication detail: with polyneuropathy Diabetes mellitus complication status: with neurologic complications Diabetes mellitus intermediate frame tender insulin use: without intermediate frame tender use Diabetes mellitus type: type 2 Q ualified Code(s): E11.42 - Type 2 diabetes mellitus with diabetic polyneuropathy Plan: Patient with new onset of diabetes in December 2023, with no insulin use, complication of neuropathy. A. Last HBA1c was 6.6% from May 2024 down from 7% from March 2024 down from 7.5 % December 2023 the time of diagnosis. However patient was on Ozempic 0.25 mg weekly injection and she took 4 injections up until May 2024 after which insurance denied her Ozempic when we increase the dose. Since she has been off the Ozempic, blood sugars have worsened, most recently her fasting readings are in the 190s. I sent her a prescription for Trulicity 0.75 mg weekly a few weeks back but she did not start it, because she got confused with the change in dose. I reassured her that since the medication is different the doses also different. But they works similarly. She tolerated the Ozempic very well, I did talk to her about possible side effects of GI intolerance again today. has a relatively higher CV risk as compared to the general population based on his diabetic status, hyperlipidemia ?and hypertension. She continues on Jardiance 10 mg daily. She also got a UTI/yeast infection with Jardiance, now resolved. We will plan to continue for now, if she gets a 2nd infection we will plan to stop it. I counseled her extensively today about hygiene measures. Encouraged her to get a bidet. D:?Diet control and healthy lifestyle was discussed in detail. Emphasis was made on exercise and physical activity in daily routine with at least 30-45 minutes of aerobic exercise 5-6 days a week. My Plate plan I discussed portion control. E: Last visit with ballet dancer : No recent visit. No diabetic retinopathy. Ophthalmology referral placed last visit, patient never heard from them, I also gave her the number today to call the clinic., patient counseled to see eye doctor. F: From January visit: Foot care is suboptimal, skin sloughing noted. Intact sensation to monofilament. Advised about regular foot daily in the morning. I also put in a referral for Podiatry. G: eGFR >December and microalbumin/Cr ratio 108: From March 2024. Plan: -continue Jardiance 10 mg daily -start Trulicity 0.75 mg weekly -continue monitoring fasting blood sugars -ophthalmology referral in place, number given -podiatry referral placed -lifestyle modification discussed again with 30 minutes of exercise daily. -follow up in 8 weeks (2) Obesity: Code(s): E66.9 - Obesity, unspecified Category: Medical Qualifiers: Body mass index: BMI 40.0-44.9 Obesity classification: adult class 3 (BMI >= 40) Obesity type: due to excess calories Serious obesity comorbidity presence: with serious comorbidity Qualified Code(s): E66.01 - Morbid (severe) obesity due to excess calories; Z68.41 - Body mass index [BMI] 40.0-44.9, adult Plan: BMI 45 kg per m2. 287 lb. Has gained another 7-8 lb since May 2024. She would be a candidate for bariatric surgery. I discussed this with her today, however she is not interested in surgery at this time. She would like to continue on medical management. Plan: -lifestyle modification discussed l -follow up with transition nurse -start Trulicity 0.75 mg weekly (3) HLD (hyperlipidemia): Code(s): E78.5 - Hyperlipidemia, unspecified Category: Medical Qualifiers: Hyperlipidemia type: mixed hyperlipidemia Qualified Code(s): E78.2 - Mixed hyperlipidemia Plan: Most recent LDL from March 2024 down to 87 mg/dL since she has started the simvastatin again. Also noted to have elevated triglycerides and total cholesterol. She was not taking her simvastatin regularly before and just started in January 03. Plan: -continue taking simvastatin -Her FIb 4 index came back at 1.37 : Concern for metabolic associated dysfunction liver disease, referring to GI for assessment for fibrosis (4) HTN (hypertension): Code(s): I10 - Essential (primary) hypertension Category: Medical Qualifiers: Hypertension type: primary hypertension Qualified Code(s): I10 - Essential (primary) hypertension Plan: Blood pressure at goal. Plan: -continue valsartan 160 mg daily and carvedilol 12.5 mg BID (5) Subclinical hyperthyroidism: Code(s): E05.90 - Thyrotoxicosis, unspecified without thyrotoxic crisis or storm Category: Medical Plan: Patient with subclinical hyperthyroidism with TSH of 0.11 and free T4 1.10 from 12/20/2023, no history of osteoporosis, no history of heart disease. Repeat labs 05/28/2024 showed normal TSH, normal free T4, normal total T3, TSI and TSH receptor antibodies undetectable. At this point thyroid dysfunction has resolved. Maybe she had thyroiditis at the time. Given undetectable antibodies as well, low suspicion of autoimmune thyroid disease. Primary care physician can check thyroid function once a year for the next 2-3 years. (6) Metabolic dysfunction-associated fatty liver disease (MAFLD): Code(s): K76.0 - Fatty (change of) liver, not elsewhere classified Category: Medical Plan: Start Trulicity 0.75 mg weekly -Lifestyle modification advised with 30 minutes of exercise daily, cutting out trans saturated and polysaccharide it fats Fifty-four index score 1.37, NAFLD score also 1.37, placing GI referral for evaluation of liver fibrosis Plan I spent 30 minutes in reviewing the record, seeing the patient and documenting in the medical record. Orders: Referrals 2 Gastroenterology Referral K76.0 - Fatty (change of) liver, not elsewhere classified Podiatry Referral E11.42 - Type 2 diabetes mellitus with diabetic polyneuropathy Medications: New 2 empagliflozin (Jardiance) 10 mg PO DAILY 30 tabs 8RF Discontinued 2 fluconazole may repeat second dose 72 hrs after first dose if symptoms persist Discontinued Reason: Doctor's Order 150 mg PO Q3D 2 tabs 0RF Patient Instructions: Call the eye doctor and make an appointment Shannan mckeon?logo y pide donnell. Establish with podiatry , if your insurance doesnt cover this one call your insurance to get the name of the podistrist office covered by them and call our office to let us know Start Trulicity 0.75 mg weekly injection Continue JArdiance 10 mg daily Consulte con un pod?logo. Si llanes seguro no cubre esvin tratamiento, llame a llanes aseguradora para obtener el nombre del pod?logo que cubre y llame a nuestra oficina para informarnos. Comience con Trulicity 0.75 mg inyecci?n semanal. Contin?e con JArdiance 10 mg diarios. Coding Level of Care Code Est Pt Level 4 (55059) Diagnoses Type 2 diabetes mellitus with diabetic polyneuropathy, without long-term current use of insulin E11.42 Diabetes mellitus complication detail: with polyneuropathy Diabetes mellitus complication status: with neurologic complications Diabetes mellitus intermediate frame tender insulin use: without care home use Diabetes mellitus type: type 2 Class 3 severe obesity due to excess calories with serious comorbidity and body mass index (BMI) of 40.0 to 44.9 in adult E66.01; Z68.41 Body mass index: BMI 40.0-44.9 Obesity classification: adult class 3 (BMI >= 40) Obesity type: due to excess calories Serious obesity comorbidity presence: with serious comorbidity Mixed hyperlipidemia E78.2 Hyperlipidemia type: mixed hyperlipidemia Primary hypertension I10 Hypertension type: primary hypertension Subclinical hyperthyroidism E05.90 Metabolic dysfunction-associated fatty liver disease (MAFLD) K76.0 Time Spent (min) 30
[2024-07-24 10:34] LABS: Glucose, Whole Blood 174 mg/dL (60-115)
--- OUTSIDE RECORDS SUMMARY | 2024-07-24 11:26 | XMS_ITS | Clinical Summary ---
Author Organization [facility] Address [address] [place] [address] Care Team Providers Care Premium Service Representative Name Role Phone Kayleen Arango MD Primary Care Provider [phone] Surgical History Surgery Date Site/Laterality Comments TUBAL [...] drink = 0.6 oz pur e alcohol) Comments Unknown Sex and Gender Information Value Date Recorded Sex Assigned at Not on file Legal Sex Female 10:04 AM EST Gender Identity Not on file Sexual Orientation [...] 04/22/2022 Social Influencers of Health Screening 04/22/2022 Pneumococcal Vaccine: 50+ Ye ars (1 of 1 - PCV) 2022 Zoster Vaccines (1 of 2) 2022 COVID-19 Vaccine (1 - 2023-2 5 season) 2024 Influenza Vaccine (#1) 2024 [...] patient's age to complete this topic Meningococcal B Vacine Aged Out No lo nger eligible based on patient's age to complete [...] age to complete this topic Care Teams Premium Service Representative Relationship Specialty Start Date End Date Kayleen Arango MD [address] [place] [id number] PCP - General 07/05/14
--- OUTSIDE RECORDS SUMMARY | 2024-07-24 11:27 | XMS_ITS | Encounter Summary ---
Author Organization [employer] Address [address] [facility] [address] 7[address] [place] [address] Care Team Providers Care Meat Stocker Name Role Phone Kayleen Arango MD Primary Care Provider [phone] Reason for Visit * Reason Onset Date Comments Nurse Triage 10/18/2023 Encounter Details Date Type Department Care Team ([facility] st Contact Info) Description 10/18/[address] [facility] MEDICINE [address] [place] [address] Kayleen Arango MD [address] [place] [address] Nurse Triage Social History Tobacco Use Types [...] past 12 months, has t he electric, [employer], oil or water [employer] threatened to shut off services in your [...] Triage call returned to patient with pacific Milk Driver [id number] patient was seen in [facility] and treated for hand injury. Has been [...] The caller accepted this outcome Patient speaks danish and was seen on 10/15 for this symptoms and is not getting any better documented in this encounter Plan of Treatment Not on file documented as of this encounter Visit Diagnoses Not on filedocumented in this encounter Additional Health Concerns Assessment Noted Time PHQ-9 Depression Total Score: 0 12/20/19 23 9:29 AM EDT documented as of this encounter Care Teams Meat Stocker Relationship Specialty Start Date End Date Kayleen Arango MD [address] [place] [id number] PCP - General Family Medicine 06/23/13 documented as of this encounter
--- OUTSIDE RECORDS SUMMARY | 2024-07-24 11:27 | XMS_ITS | Encounter Summary ---
Author Organization [employer] Address 75 [facility] 7t [place] [address] Care Team Providers Care Cherry Pitter Name Role Phone Kayleen Arango MD Primary Care Provider [phone] Reason for Visit * Reason Comments Med Refill Encounter Details Date Type Department Care Team ([facility] st Contact Info) Description 07/19/2024 Refill [facility] [address] [place] [address] Michaela Ridley MD [address] [place] [address] Social History Tobacco Use Types Packs/Day Years [...] documented as of this encounter Care Teams Cherry Pitter Relationship Specialty Start Date End Date Kayleen Arango MD [address] [place] [address] PCP - General Family Medicine 06/23/13 documented as of this encounter
--- OUTSIDE RECORDS SUMMARY | 2024-07-24 11:27 | XMS_ITS | Encounter Summary ---
Author Organization [employer] Address [address] [facility] [address] [place] [address] Care Team Providers Care Condominium Association Manager Name Role Phone Kayleen Arango MD Primary Care Provider [phone] Reason for Visit * Reason Onset Date Comments Nurse Triage 12/31/2023 Encounter Details Date Type Department Care Team ([facility] st Contact Info) Description 12/31/2023 Telephone [facility] MEDICINE [address] [place] [address] Kayleen Arango MD [address] [place] [address] Nurse Triage Social History Tobacco Use Types [...] past 12 months, has t he electric, [employer], [employer] or water [employer] threatened to shut off services in your [...] documented as of this encounter Care Teams Condominium Association Manager Relationship Specialty Start Date End Date Kayleen Arango MD [address] [place] [address] PCP - General Family Medicine 06/23/13 documented as of this encounter
--- OUTSIDE RECORDS SUMMARY | 2024-07-24 11:27 | XMS_ITS | Clinical Summary ---
Author Organization [employer] Address [address] [facility] 7t [place] [address] Care Team Providers Care Lean Process Deployment Consultant Name Role Phone Kayleen Arango MD Primary Care Provider [phone] Allergies Active Allergy Reactions Criticality Noted Date [...] TIMES EVERY DAY 12 g 2 08/17/19 Active cloNIDine (Catapres) 0.1 MG tablet Take 1 tablet (0.1 mg) by mouth 3 times daily. 90 tablet 11 12/20/19 Active baclofen (Lioresal) 10 MG tablet Take one tablet TID PRN 30 tablet 09/18/19 Active meloxicam (Mobic) 7.5 MG tablet Take 1 tablet (7.5 mg) by mouth 2 times daily. 60 tablet 12/16/19 24 Active metFORMIN (Glucophage) 500 MG tablet Take 1 tablet (500 mg) by mouth with breakfast and with evening meal. 60 tablet 12/18/19 24 Active empagliflozin (Jardiance) 10 MG Take 1 tablet (10 mg) by mouth Once per day. 30 tablet 12/24/19 24 Active Blood Glucose Monitoring Suppl (FreeStyle [place] Lite) w/Device kitIndications :New onset type 2 diabetes mellitus (CMS/HCC) Use to test blood sugar 2 times daily 1 kit 12/24/19 Active FREESTYLE LITE test stripIndicatio ns:New onset type 2 diabetes mellitus (CMS/HCC) Use to test blood sugar 2 times daily 100 each 12 12/24/19 24 Active Alcohol Swabs 70 % padsIndication s:New onset type 2 diabetes mellitus (CMS/HCC) Use to test blood sugar 2 times daily 100 each 11 12/24/19 24 Active simvastatin (Zocor) 20 MG tablet Take 1 tablet (20 mg) by mouth at bedtime. 30 tablet 12/24/19 24 Active Diclofenac Sodium 1 % gel TAKE 2 GRAMS (TOPICAL) 4 TIMES PER DAY FOR 10 DAYS 100 g 01/09/20 24 Active Semaglutide-We ight Management (Wegovy) 0.25 MG/0.5ML solution auto-injector Inject 0.25 mg under the skin 1 (one) time per week. 0.5 mL 3 03/04/20 24 Active FreeStyle lancetsIndicat ions:New onset type 2 diabetes mellitus (CMS/HCC) USE 1 LANCET DIRECTED TWICE A DAY 100 each 5 06/04/19 25 Active Mometasone Furoate (Asmanex HFA) 200 MCG/ACT aerosol TAKE 1 PUFF BY MOUTH TWICE A DAY (*2 MONTH SUPPLY*) 13 g 2 06/23/19 25 Active omeprazole (PriLOSEC) [address] capsule TAKE 1 CAPSULE BY MOUTH EVERY DAY 90 capsule 3 07/24/19 25 Active acetaminophen (Tylenol 8 Hour) 650 MG ER tabletIndicati ons:Chronic bilateral thoracic back pain TAKE 1 TAB BY MOUTH EVERY 8 HOURS IF NEEDED FOR MILD PAIN FOR UP TO 10 DAYS DONT CRUSH, CHEW OR SPIT 90 tablet 3 07/24/19 25 Active ibuprofen 800 MG tablet TAKE 1 TABLET BY MOUTH EVERY 8 HOURS NEEDED FOR FEVER OR MODERATE PAIN 30 tablet 07/24/19 25 Active omeprazole (PriLOSEC) [address] capsule TAKE 1 CAPSULE BY MOUTH EVERY DAY 90 capsule 3 06/24/19 24 025 Discontinued acetaminophen (Tylenol 8 Hour) 650 MG ER tabletIndicati ons:Chronic bilateral thoracic back pain TAKE 1 TAB BY MOUTH EVERY 8 HOURS IF NEEDED FOR MILD PAIN FOR UP TO 10 DAYS DONT CRUSH, CHEW OR SPIT 90 tablet 3 01/02/20 24 025 Discontinued ibuprofen 800 MG tablet TAKE 1 TABLET BY MOUTH EVERY 8 HOURS NEEDED FOR FEVER OR MODERATE PAIN 30 tablet 05/12/20 24 025 Discontinued Active Problems Problem Noted Date Diagnosed [...] Encounters Date Type Department Care Team Description 07/24/2024 Orders Only GENERIC EXTERNAL DATA DEPARTMENT Provider, Generic External Data 07/24/2024 Population Health Risk Score [facility] (C3) Department [address] [place] [id number] Provider, Population Health Generic 07/19/2024 Refill [facility] [address] [place] [address] Michaela Ridley MD 07/19/2024 Refill [facility] [address] [place] [address] Kayleen Arango MD Chronic bilateral thoracic back pain 06/21/2024 Refill [facility] [address] [place], [place] [phone] Kayleen Arango MD 06/02/2024 Refill [facility] [address] [place], [place] [phone] Kayleen Arango MD New onset type 2 diabetes mellitus (CMS/HCC) 05/12/2024 Refill [facility] [address] [place] [phone] Tammy Scott FNP 05/04/2024 Telephone [facility] [address] [place], [place] [phone] Kayleen Arango MD Chart prep from Last 3 Months Immunizations Name Administration [...] FOBT 1972 HIV Screening 1972 Sigmoidoscopy 1972 Diabetes: Foot Exam 1982 Eye Exam 1982 Alcohol/Substance Use Screening 1984 Family Planning (PISQ) 1987 Hepatitis C Screening 1990 Diabetes: Urine Protein Screening 1991 Hepatitis B Vaccines (1 of 3 - 19+ 3-dose series) 1991 Pneumococcal Vaccine: 50+ Years (1 of 2 - PCV) 1991 Pap Smear 1993 Cervical Cancer Screening 2002 HPV/Cotest 2002 Mammogram 09/15/2021 09/16/2019 Zoster Vaccines (1 of 2) 2022 Depression Screening 12/20/2023 12/19/2022, 12/20/19 SDOH Screening 12/20/2023 12/19/2022 COVID-19 Vaccine ( [...] Procedure Name Priority Date/Time Associated Diagnosis Comments GLUCOSE, WHOLE BLOOD Routine 07/24/2024 10:29 AM EDT HEMOGLOBIN A1C Routine 12/20/2023 8:48 AM EDT Primary hypertension LIPID PANEL, STANDARD Routine 12/17/2023 8:55 AM EDT Primary hypertension BI MAMMOGRAM DIAGNOSTIC BILATERAL Routine 09/16/2019 10:49 AM EDT from Last 3 Months or Most Recently Relevant to Health Maintenance Results * (ABNORMAL) Glucose, Whole Blood (07/24/2024 10:29 AM EDT) Glucose, Whole Blood 174(H) 60 - 115 mg/dL [facility] Comment:METER #: [id number] Testing performed in the Endocrinology Department [address] , [address], [facility]. 07/24/2024 10:2 9 AM EDT 07/24/2024 10:34 AM EDT us Generic External Data Provider LAB BLOOD ORDERAB LES Final Result Performing Organization Address [facility]/ZIP Co de Phone Number [facility] [address] [place] [phone] * (ABNORMAL) Hemoglobin A1c (12/20/2023 8:48 AM EDT) Hemoglobin A1c 7.5(H) <6.0 % [facility] Comment:Hemoglobin A1C Refer ence Range Adults: 4.8 - 6.0 % Non diabetic: < 6.0 % Goal: < 7.0 %Additional Action Suggested: > 8.0 %Note: Hemoglobin A1c results are invalid for patients with abnormal amounts of HbF. Blood transfusions may impact the HbA1c concentration in the patient sample. Estimated Average Glucose 169 mg/dL [facility] Comment:eAG = Estimated ave rage glucose which is %A1C expressed asaverage glucose, using the formula of the R3Z-IsmrvzxXhdehmz Glucose study (ADAG), Diabetes Care, Vol.31,#8,Dec. 2007 Blood Venous blood specimen / Unknown 12/20/2023 8:48 AM EDT 12/20/2023 1:58 PM EDT us Kayleen Arango MD LAB BLOOD ORDERABLES Final Resul t Performing Organization Address [facility]/ZIP Co de Phone Number [facility] [address] [place] [phone] * (ABNORMAL) Lipid Panel, Standard (12/17/2023 8:55 AM EDT) Triglycerides 200(H) <150 mg/dL [facility] Comment:Desirable Triglyceri de: less than 150 mg/dLBorderline High Triglyceride 150-199 mg/dLHigh Triglyceride: 200-499 mg/dLVery High Triglyceride: greater than or equal to 5OO mg/dL Cholesterol 226(H) <200 mg/dL [facility] Comment:Desirable Cholestero l: less than 200 mg/dLBorderline High Cholesterol: 200-239 mg/dLHigh Cholesterol: greater than 239 mg/dL LDL Cholesterol Calculated 148(H) <100 mg/dL [facility] Comment:Desirable LDL: less than 100 mg/dLNear Optimal/Above Optimal LDL: 110- 129 mg/dLBorderline High LDL: 130-159 mg/dLHigh LDL: 160-189 mg/dLVery High LDL: greater than or equal to 190 mg/dL HDL Cholesterol 38(L) >40 mg/dL [facility] Comment:Desirable HDL: great er than 40 mg/dL Note: This HDL assay may give artificially low results in patients with liver disease. Blood Venous blood specimen / Unknown 12/17/2023 8:55 AM EDT 12/17/2023 2:02 PM EDT us Kayleen Arango MD LAB BLOOD ORDERABLES Final Resul t [facility] [address] [place] [phone] * 3D BILATERAL DIAGN MAMMO 1 (09/16/2019 10:49 AM EDT) Anatomical Region Laterality Modality Breast Bilateral Mammography 09/16/2019 10:4 9 AM EDT Narrative 09/16/2019 10:51 AM EDT Refer to the Notes tab for result details [facility] Procedure: 3D BILATERAL DIAGN MAMMO 1 Procedure Note ProviderGuanakito MD - 08/04/2022 Refer to the Notes tab for result details [facility] Procedure: 3D BILATERAL DIAGN MAMMO 1 us Kayleen Arango MD IMG BI PROCEDURES Final Result from Last 3 Months or Most Recently Relevant to Health Maintenance Insurance C3 Care Teams Lean Process Deployment Consultant Relationship Specialty Start Date End Date Kayleen Arango MD [address] [place] [phone] PCP - General Family Medicine 06/23/13
--- OUTSIDE RECORDS SUMMARY | 2024-07-24 11:27 | XMS_ITS | Encounter Summary ---
Author Organization [employer] Address [address] [facility] [address] [place] [address] Care Team Providers Care Hat Designer Name Role Phone Kayleen Arango MD Primary Care Provider [phone] Reason for Visit * Reason Comments Med Refill Encounter Details Date Type Department Care Team ([facility] Contact Info) Description 07/19/2024 Refill [facility] [address] [place], [place] [phone] Kayleen Arango MD [address] [place] [address] Chronic bilateral thoracic back pain Social History Tobacco Use Types Packs/Day Years [...] as of this encounter Visit Diagnoses Diagnosis Chronic bilateral thoracic back pain documented in this encounter Additional Health Concerns Assessment Noted Time PHQ-9 Depression Total Score: 0 12/20/19 23 9:29 AM EDT documented as of this encounter Care Teams Hat Designer Relationship Specialty Start Date End Date Kayleen Arango MD [address] [place] [phone] PCP - General Family Medicine 06/23/13 documented as of this encounter
--- OUTSIDE RECORDS SUMMARY | 2024-07-24 11:27 | XMS_ITS | Encounter Summary ---
Author Organization [employer] Address [address] [facility] [address] [place] [address] Care Team Providers Care Die Cast Patternmaker Name Role Phone Kayleen Arango MD Primary Care Provider [phone] Encounter Details Date Type Department Care Team ([facility] st Contact Info) Description 07/24/2024 Population Health Risk Score [facility] (C3) Department [address] [phone] Provider, Population Health Generic Social History Tobacco Use Types Packs/Day Years [...] documented as of this encounter Care Teams Die Cast Patternmaker Relationship Specialty Start Date End Date Kayleen Arango MD [address] [place] [phone] PCP - General Family Medicine 06/23/13 documented as of this encounter
--- OUTSIDE RECORDS SUMMARY | 2024-07-24 11:27 | XMS_ITS | Encounter Summary ---
Author Organization [employer] Address [address] [facility] [address] [place] [address] Care Team Providers Care Block Captain Name Role Phone Kayleen Arango MD Primary Care Provider [phone] Reason for Visit * Reason Onset Date Comments Appointment Request 06/27/2023 Encounter Details Date Type Department Care Team ([facility] Contact Info) Description 06/27/2023 Telephone [facility] [address] [place], [place] [phone] Kayleen Arango MD [address] [place] [address] Appointment Request Social History Tobacco Use Types [...] her current diagnostics. Please contact pt @ [phone] Lithuanian Speaker documented in this encounter Plan of Treatment Not on file documented as of this encounter Visit Diagnoses Not on filedocumented in this encounter Additional Health Concerns Assessment Noted Time PHQ-9 Depression Total Score: 0 12/20/19 23 9:29 AM EDT documented as of this encounter Care Teams Block Captain Relationship Specialty Start Date End Date Kayleen Arango MD [address] [place] [phone] PCP - General Family Medicine 06/23/13 documented as of this encounter
--- OUTSIDE RECORDS SUMMARY | 2024-07-24 11:27 | XMS_ITS | Encounter Summary ---
Author Organization [employer] Address [address] [facility] [address] [place] [address] Care Team Providers Care Tire Setter Name Role Phone Kayleen Arango MD Primary Care Provider [phone] Encounter Details Date Type Department Care Team ([facility] Contact Info) Description 07/24/2024 Orders Only GENERIC EXTERNAL DATA DEPARTMENT Provider, Generic External Data Social History Tobacco Use Types Packs/Day Years [...] on file documented as of this encounter Procedures Procedure Name Priority Date/Time Associated Diagnosis Comments GLUCOSE, WHOLE BLOOD Routine 07/24/2024 10:29 AM EDT documented in this encounter Results * (ABNORMAL) Glucose, Whole Blood (07/24/2024 10:29 AM EDT) Glucose, Whole Blood 174(H) 60 - 115 mg/dL [facility] Comment:METER #: [id number] Testing performed in the Endocrinology Department [address] , [address], [facility]. 07/24/2024 10:2 9 AM EDT 07/24/2024 10:34 AM EDT us Generic External Data Provider LAB BLOOD ORDERAB LES Final Result [facility] [address] [place] [phone] documented in this encounter Visit Diagnoses Not on filedocumented in this encounter Additional Health Concerns Assessment Noted Time PHQ-9 Depression Total Score: 0 12/20/19 23 9:29 AM EDT documented as of this encounter Care Teams Tire Setter Relationship Specialty Start Date End Date Kayleen Arango MD [address] [place] [phone] PCP - General Family Medicine 06/23/13 documented as of this encounter
== END 2024-07-24 11:01 | disposition home or self-care (01) ==
LOC: HO.ENCR 10:10
PROVIDERS: PCP Student in an Organized Health Care Education/Training Program; Visit Provider Student in an Organized Health Care Education/Training Program
DX: E11.42 Type 2 diabetes mellitus with diabetic polyneuropathy (principal); E66.01 Morbid (severe) obesity due to excess calories; Z68.41 Body mass index [BMI] 40.0-44.9, adult; E78.2 Mixed hyperlipidemia; I10 Essential (primary) hypertension; E05.90 Thyrotoxicosis, unspecified without thyrotoxic crisis or storm; K76.0 Fatty (change of) liver, not elsewhere classified
CPT/HCPCS: 99214

== ENCOUNTER → 2024-07-24 10:09 | Outpatient (BNVA) | payer MEDICAID, SELFPAY | PROVIDERS: PCP Student in an Organized Health Care Education/Training Program; Visit Provider Student in an Organized Health Care Education/Training Program | DX: E11.42 Type 2 diabetes mellitus with diabetic polyneuropathy (principal); E78.2 Mixed hyperlipidemia; E66.9 Obesity, unspecified; I10 Essential (primary) hypertension; E05.90 Thyrotoxicosis, unspecified without thyrotoxic crisis or storm; K76.0 Fatty (change of) liver, not elsewhere classified; Z68.44 Body mass index [BMI] 60.0-69.9, adult | CPT/HCPCS: 82947; 99212 ==

== ENCOUNTER 2024-08-26 13:35 | Outpatient (AMB) | payer MEDICAID, SELFPAY ==
--- NOTE | 2024-08-26 13:47 | A.OFFVIS_ITS ---
Vital Signs 08/26/24 13:48 Height 5 ft 7 in Weight 287 lb 14.779 oz BMI 45.1 BP 112/84 Blood Pressure Location Rt brachial Position Sitting Pulse 69 Pulse Source Pulse Oximeter Pulse Oximetry (%) 98 Oxygen Delivery Method Room Air Intake Visit Reasons: T2DM Intake Note: Patient present today for Type 2 Diabetes Mellitus Last Diabetic eye exam: Over 2 years ago Last Podiatry Visit: Doesn't have one Random Glucose: 160 mg/dl HgA1C: 6.4% Software Engineer Developer Required: Yes Software Engineer Developer Language: Diet Consultant Services: Software Engineer Developer Present Software Engineer Developer Name: Marielos Information Interpreted: non-clinical & clinical Accompanied by: Self / Same As Patient Allergies morphine Allergy (Unknown, Verified 08/26/24 13:53) Anaphylaxis Iodinated Contrast Media [IV Contrast Dye] Allergy (Verified 08/26/24 13:53) Anaphylaxis HPI Comments Details: 53-year-old female coming in today for follow up of type 2 diabetes mellitus and thyroid dysfunction which has resolved. Type 2 diabetes mellitus without long-term insulin use Type 2 diabetes mellitus Diagnosed December 2023 Hba1c 7.5 % 202303/30/24 : A1c 7 % 05/28/24: A1c 6.6% 08/26/2024. HgA1C: 6.4% Prior medications tried Metformin caused severe explosive diarrhea and GI intolerance pt could not tolerate Jardiance 10 mg daily stopped in August 2024 due to yeast and urine infections x2 She was on OZempic 0.25 mg weekly for 4 weeks and then insurance denied it , she said she tolerated it well for those 4 weeks Current Medications Trulicity 0.75 mg weekly, she is having severe explosive diarrhea with 5 to 6 times loose stools a day, abd pain, not able to tolerate, also resulting in severe headaches SMBGs: Glucometer reviewed Readings from 130 to 180s fasting Random Glucose: 160 mg/dl Never hospitalised for low or high blood sugars Complains of increased urination, increased thirst. Exercise: none Weight BMI 45 kg/m2 Weight : Gained 8 lb since May 2024. Saw the carton packaging machine operator. We had prescribed her Wegovy which got denied by her insurance. Prescribed Trulicity 0.75 mg weekly in June 2024, she is not able to tolerate as mentioned above adverse effects Food : Homemaker Wakes up at 6 or 7 AM Breakfast 9 to 11 AM 4-5 crackers with coffee, with milk and sugar 2 teaspoons Lunch at 1-2 pm : sandwich , very variable Dinner: 5 pm : rice, pasta with veggies with meat Mostly home made meals has eliminated sugary drinks, met with carton packaging machine operator Exercise :manjinder twice a week 1 hr Prior medications Could not tolerate metformin ( only took it for a week) , explosive diarrhea Family history: mother, maternal grandmother, sisters have type 2 DM No history of pancreatitis No family history of medullary thyroid cancer Complications Last Diabetic eye exam:Many years ago needs one Last Podiatry Visit: needs one Eye doctor: none recently, no history of retinopathy Neuropathy: has numbness and tingling in feet since 2 years No kidney disease No stroke or heart attack Alcohol: none MASLD evaluation FIB 4 index score 1.37 based on labs in May 2024, NAFLD score also at 1.37. EKATERINA/ ARB: On valsartan 160 mg daily, urine microalbumin 193 05/28/24 HLD: On simvastatin 20 mg daily , LDL 87 mg/dl 04/05 Subclinical hyperthyroidism: Resolved Labs from 12/20/2023 showed TSH of 0.11 uIU per mL, with free T4 of 1.10 ng/dL. No prior history of thyroid disease. Complaining of some heat intolerance. Complaining of palpitations a year , evaluated by cardiology says all studies were normal. Sees Dr. Jon Lindo in [address] Chronic anxiety. Low energy Denies diarrhea or constipation, hair loss, no weight changes, changes in appearance of eyes or vision changes, tremors, increased diaphoresis or dry skin. ? Patient denies any difficulty swallowing, pain on swallowing or voice changes or difficulty breathing. Patient denies any history of childhood neck radiation. Denies having ever used lithium, amiodarone or biotin supplements. Patient denies any family history of thyroid cancer. Mother , maternal grandmother , maternal aunts have thyroid disease. She is not sure what but they have had thyroid surgery . Has history of tibial fracture 18 years ago, slipped on ice. No history of heart disease or stroke. Denies any viral illness when testing was done. No exposure to contrast . Interval history Repeat labs 05/28/2024 showed normal TSH, normal free T4, normal total T3, TSI and TSH receptor antibodies undetectable. Physical exam General: sitting comfortably in bed in no acute distress HEENT: normocephalic/atraumatic, moist oral mucosa Neck: supple, symmetrical, no thyromegaly Cardiac: normal heart sounds Pulm: normal breath sounds B/L, no added breath sounds Abd: not distended, no tenderness Extremities: no edema, no signs of myxedema, no tremors Neuro: AAO x3, Speech: normal, no facial droop, moving all 4 extremities foot exam: 07/24/2024: Skin sloughing noted. Right big toe got injured, and has a broken nail, no left big toe looks like fungal infection. Intact sens ation to monofilament, warm and well-perfused, intact pulses Laboratory Tests 12/20/23 12/20/23 03/30/24 08:46 08:48 09:01 Creatinine 0.83 Estimated GFR > 60 Hemoglobin A1c % 7.5 H 7.0 H Triglycerides 138 Cholesterol 145 LDL Cholesterol, Calc 87 HDL Cholesterol 31 L TSH 0.11 L Free T4 1.10 Laboratory Tests 03/30/24 03/30/24 05/28/24 09:01 09:10 09:27 Plt Count 233 Sodium 139 Potassium 4.0 Creatinine 0.80 Estimated GFR > 60 Hemoglobin A1c % 7.0 H 6.6 H Calcium 9.5 AST 26 ALT 18 Triglycerides 138 Cholesterol 145 LDL Cholesterol, Calc 87 HDL Cholesterol 31 L TSH 1.73 Free T4 1.01 Total T3 125 Thyroid Stim Immunoglob <89 Urine Creatinine 133.18 97.57 Urine Microalbumin 145.0 189.0 Microalb/Creat Ratio 108.8 H 193.7 H TSH Receptor Ab <1.00 [facility] Medical History (Updated 07/24/24 @ 10:55 by Kaleigh Augustine MD) Metabolic dysfunction-associated fatty liver disease (MAFLD) HTN (hypertension) HLD (hyperlipidemia) Obesity Diabetes mellitus Subclinical hyperthyroidism Surgical History History of laparoscopic appendectomy H/O tubal ligation Family History Mother Hypertension Thyroid crisis High cholesterol Father Heart problem Social History Alcohol intake: never Patient Tobacco Use Status: Never used Tobacco Physical Exam Vital Signs: Last Vital Signs Pulse 69 08/26/24 13:48 BP 112/84 08/26/24 13:48 Pulse Ox 98 08/26/24 13:48 Oxygen Delivery Method Room Air 08/26/24 13:48 BMI result Body Mass Index 45.1 Results AMB Hemoglobin A1c AMB Hemoglobin A1c 6.4 % Last Edit by CLAYTON Meyer on 08/26/24 14:07 Results Reviewed Results Reviewed: Laboratory Last Values Glucose (Clinic) 160 mg/dL (60-115) H 08/26/24 13:55 Hgb A1c (Clinic) 6.4 % (4.0-6.0) H 08/26/24 13:58 Assessment & Plan Assessment & Plan (1) Diabetes mellitus: Code(s): E11.9 - Type 2 diabetes mellitus without complications Category: Medical Qualifiers: Diabetes mellitus type: type 2 Diabetes mellitus long term acute care registered nurse insulin use: without mcc use Diabetes mellitus complication status: with neurologic complications Diabetes mellitus complication detail: with polyneuropathy Qualified Code(s): E11.42 - Type 2 diabetes mellitus with diabetic polyneuropathy Plan: Patient with new onset of diabetes in December 2023, with no insulin use, complication of neuropathy. A. Last HBA1c point of care today 08/26/2024 at 6.4% which is stable from 6.6% from May 2024 down from 7% from March 2024 down from 7.5 % December 2023 the time of diagnosis. However patient was on Ozempic 0.25 mg weekly injection and she took 4 injections up until May 2024 after which insurance denied her Ozempic when we increase the dose. She could not tolerate metformin which was initiated at the time of her diagnosis due to explosive diarrhea, we had her on Jardiance up until August 2024 however she has had her 2nd UTI on it and now Jardiance has been stopped. I started her on Trulicity at my last visit, however she is unable to also tolerate Trulicity has severe explosive diarrhea. We will resent a prescription for Ozempic she has she has been unable to tolerate Trulicity or metformin. Glucometer data reviewed in her fasting blood sugars are anywhere from 130s to 180s, these are elevated, and soon her A1c we will also climb. She has been doing well in terms of her activity, has joint dance classes and Manjinder and walking. D:?Diet control and healthy lifestyle was discussed in detail. Emphasis was made on exercise and physical activity in daily routine with at least 30-45 minutes of aerobic exercise 5-6 days a week. My Plate plan I discussed portion control. E: Last visit with textile engineer : No recent visit. No diabetic retinopathy. Ophthalmology referral placed last visit, patient never heard from them, I also gave her the number today to call the clinic., patient counseled to see eye doctor. She is still has not called. Again emphasized today. F: From January visit: Foot care is suboptimal, skin sloughing noted. Intact sensation to monofilament. Advised about regular foot daily in the morning. I also put in a referral for Podiatry. She is pending an appointment with them. G: eGFR >December and microalbumin/Cr ratio 108: From March 2024. Plan: -stopped Jardiance 10 mg daily -stopped Trulicity 0.75 mg weekly -start Ozempic 0.25 mg weekly, prescription sent with plan for up titration in 4 weeks -continue monitoring fasting blood sugars -ophthalmology referral in place, number given -podiatry referral placed , pending appointment -lifestyle modification discussed again with 30 minutes of exercise daily., she is already doing a good job with activity. -follow up in 6 weeks (2) Obesity: Code(s): E66.9 - Obesity, unspecified Category: Medical Qualifiers: Obesity type: due to excess calories Obesity classification: adult class 3 (BMI >= 40) Serious obesity comorbidity presence: with serious comorbidity Body mass index: BMI 40.0-44.9 Qualified Code(s): E66.01 - Morbid (severe) obesity due to excess calories; Z68.41 - Body mass index [BMI] 40.0- 44.9, adult Plan: BMI 45 kg per m2. 287 lb. Has gained another 7-8 lb since May 2024. She would be a candidate for bariatric surgery. I discussed this with her today, however she is not interested in surgery at this time. She would like to continue on medical management. Plan: -lifestyle modification discussed l -follow up with carton packaging machine operator -start Ozempic 0.25 mg weekly (3) HLD (hyperlipidemia): Code(s): E78.5 - Hyperlipidemia, unspecified Category: Medical Qualifiers: Hyperlipidemia type: mixed hyperlipidemia Qualified Code(s): E78.2 - Mixed hyperlipidemia Plan: Most recent LDL from March 2024 down to 87 mg/dL since she has started the simvastatin again. Also noted to have elevated triglycerides and total cholesterol. She was not taking her simvastatin regularly before and just started in January 03. Plan: -continue taking simvastatin -Her FIb 4 index came back at 1.37 : Concern for metabolic associated dysfunction liver disease, referring to GI for assessment for fibrosis (4) HTN (hypertension): Code(s): I10 - Essential (primary) hypertension Category: Medical Qualifiers: Hypertension type: primary hypertension Qualified Code(s): I10 - Essential (primary) hypertension Plan: Blood pressure at goal. Plan: -continue valsartan 160 mg daily and carvedilol 12.5 mg BID (5) Metabolic dysfunction-associated fatty liver disease (MAFLD): Code(s): K76.0 - Fatty (change of) liver, not elsewhere classified Category: Medical Plan: Could not tolerate Trulicity, we will switch to Ozempic 0.25 mg weekly -Lifestyle modification advised with 30 minutes of exercise daily, cutting out trans saturated and polysaccharide it fats Fifty-four index score 1.37, NAFLD score also 1.37, placing GI referral for evaluation of liver fibrosis Plan I spent 30 minutes in reviewing the record, seeing the patient and documenting in the medical record. Orders: Orders AMB Hemoglobin A1c Today E11.42 - Type 2 diabetes mellitus with diabetic polyneuropathy, Z13.9 - Encounter for screening, unspecified Medications: New semaglutide (Ozempic) for 4 weeks 0.25 mg (0.368 mL) subcut QWEEK 3 mL 6RF Discontinued dulaglutide (Trulicity) Discontinued Reason: Doctor's Order 0.75 mg (0.5 mL) subcut QWEEK 2 mL 3RF empagliflozin (Jardiance) Discontinued Reason: Doctor's Order 10 mg PO DAILY 30 tabs 8RF Patient Instructions: Stop jardiance Stop Trulicity Start Ozempic 0.25 mg weekly, call the pharmacy and check on the status in a few days Call eye doctor number given last visit See podiatry Coding Level of Care Code Est Pt Level 3 (16871) Diagnoses Type 2 diabetes mellitus with diabetic polyneuropathy, without long-term current use of insulin E11.42 Diabetes mellitus type: type 2 Diabetes mellitus long term acute care registered nurse insulin use: without mcc use Diabetes mellitus complication status: with neurologic complications Diabetes mellitus complication detail: with polyneuropathy Class 3 severe obesity due to excess calories with serious comorbidity and body mass index (BMI) of 40.0 to 44.9 in adult E66.01; Z68.41 Obesity type: due to excess calories Obesity classification: adult class 3 (BMI >= 40) Serious obesity comorbidity presence: with serious comorbidity Body mass index: BMI 40.0-44.9 Mixed hyperlipidemia E78.2 Hyperlipidemia type: mixed hyperlipidemia Primary hypertension I10 Hypertension type: primary hypertension Metabolic dysfunction-associated fatty liver disease (MAFLD) K76.0
[2024-08-26 13:48] VITALS: BP 112/84; PULSE 69; O2SAT 98; BMI 45.1
[2024-08-26 13:58] LABS: Glucose, Whole Blood 160 mg/dL (60-115)
--- OUTSIDE RECORDS SUMMARY | 2024-08-26 16:10 | XMS_ITS | Encounter Summary ---
Author Organization [employer] Address [address] [facility] [address] [place] [address] Care Team Providers Care Glove Factory Sewer Name Role Phone Kayleen Arango MD Primary Care Provider [phone] Encounter Details Date Type Department Care Team ([facility] Contact Info) Description 08/26/2024 Orders Only GENERIC EXTERNAL DATA DEPARTMENT Provider, [...] Associated Diagnosis Comments GLUCOSE, WHOLE BLOOD Routine 08/26/2024 1:55 PM EDT documented in this encounter Results * (ABNORMAL) Glucose, Whole Blood (08/26/2024 1:55 PM EDT) Glucose, Whole Blood 160(H) 60 - 115 mg/dL [facility] Comment:METER #: [id number] 5Testing performed in the Endocrinology Department [address] , [address], [facility]. 08/26/2024 1:55 PM EDT 08/26/2024 1:58 PM EDT us Generic External Data Provider LAB BLOOD ORDERAB LES Final Result [facility] [address] [place] [phone] documented in this encounter Visit Diagnoses Not on filedocumented in this encounter Additional Health Concerns Assessment Noted Time PHQ-9 Depression Total Score: 0 12/20/19 23 9:29 AM EDT documented as of this encounter Care Teams Glove Factory Sewer Relationship Specialty Start Date End Date Kayleen Arango MD [address] [place] [id number] PCP - General Family Medicine 06/23/13 documented as of this encounter
--- OUTSIDE RECORDS SUMMARY | 2024-08-26 16:10 | XMS_ITS | Clinical Summary ---
Author Organization [employer] Address [address] [facility] [address] [place] [address] Care Team Providers Care Photograph Inspector Name Role Phone Kayleen Arango MD Primary Care Provider [phone] Allergies Active Allergy Reactions Criticality Noted Date Comments Iodinated Contrast Media Syncope High 09/18/2023 Hypotension, v/d Morphine Shortness of breath High 05/18/2013 Medications cholecalciferol (Vitamin D-3) 25 MCG (1000 UT) tabletIndicatio ns:Vitamin D deficiency Take 1 tablet (25 mcg) by mouth in the morning. 30 tablet 2 Active valsartan-hydro CHLOROthiazide (Diovan-HCT) 80-12.5 MG tablet TAKE 1 TABLET BY MOUTH ONCE A DAY FOR 90 DAYS 2 Active Spiriva HandiHaler 18 MCG inhalation capsule INHALE CONTENTS OF 1 CAPSULE EVERY DAY 3 Active montelukast (Singulair) 10 MG tablet Take 10 mg by mouth at bedtime. 2 Active Symbicort 160-4.5 MCG/ACT inhaler Inhale 2 puffs 2 times daily. 2 Active aspirin 81 MG chewable tablet Chew 1 tablet at bed time. 2 Active Ventolin HFA 108 (90 Base) MCG/ACT inhaler INHALE 2 PUFFS BY MOUTH 3 TIMES A DAY NEEDED FOR WHEEZING/SHORT NESS OF BREATH 2 Active hydrALAZINE (Apresoline) 10 MG tablet Take 1 tablet (10 mg) by mouth in the morning. 90 tablet 2 3 Active Flovent HFA 110 MCG/ACT inhaler INHALE 1 PUFF BY MOUTH 2 TIMES EVERY DAY 12 g 2 3 Active cloNIDine (Catapres) 0.1 MG tablet Take 1 tablet (0.1 mg) by mouth 3 times daily. 90 tablet 3 Active baclofen (Lioresal) 10 MG tablet Take one tablet TID PRN 30 tablet 4 Active meloxicam (Mobic) 7.5 MG tablet Take 1 tablet (7.5 mg) by mouth 2 times daily. 60 tablet 4 12/16/19 25 Active metFORMIN (Glucophage) 500 MG tablet Take 1 tablet (500 mg) by mouth with breakfast and with evening meal. 60 tablet 4 12/18/19 25 Active empagliflozin (Jardiance) 10 MG Take 1 tablet (10 mg) by mouth Once per day. 30 tablet 4 12/24/19 25 Active Blood Glucose Monitoring Suppl (FreeStyle Lawtons Lite) w/Device kitIndications: New onset type 2 diabetes mellitus (CMS/HCC) Use to test blood sugar 2 times daily 1 kit 4 Active FREESTYLE LITE test stripIndication s:New onset type 2 diabetes mellitus (CMS/HCC) Use to test blood sugar 2 times daily 100 each 12 4 12/24/19 25 Active Alcohol Swabs 70 % padsIndications :New onset type 2 diabetes mellitus (CMS/HCC) Use to test blood sugar 2 times daily 100 each 4 Active simvastatin (Zocor) 20 MG tablet Take 1 tablet (20 mg) by mouth at bedtime. 30 tablet 4 12/24/19 25 Active Diclofenac Sodium 1 % gel TAKE 2 GRAMS (TOPICAL) 4 TIMES PER DAY FOR 10 DAYS 100 g 4 Active Semaglutide-Hoang ght Management (Wegovy) 0.25 MG/0.5ML solution auto-injector Inject 0.25 mg under the skin 1 (one) time per week. 0.5 mL 3 4 Active FreeStyle lancetsIndicati ons:New onset type 2 diabetes mellitus (CMS/HCC) USE 1 LANCET DIRECTED TWICE A DAY 100 each 5 5 Active Mometasone Furoate (Asmanex HFA) 200 MCG/ACT aerosol TAKE 1 PUFF BY MOUTH TWICE A DAY (*2 MONTH SUPPLY*) 13 g 2 5 Active omeprazole (PriLOSEC) [address] capsule TAKE 1 CAPSULE BY MOUTH EVERY DAY 90 capsule 3 5 Active acetaminophen (Tylenol 8 Hour) 650 MG ER tabletIndicatio ns:Chronic bilateral thoracic back pain TAKE 1 TAB BY MOUTH EVERY 8 HOURS IF NEEDED FOR MILD PAIN FOR UP TO 10 DAYS DONT CRUSH, CHEW OR SPIT 90 tablet 3 5 Active ibuprofen 800 MG tablet TAKE 1 TABLET BY MOUTH EVERY 8 HOURS NEEDED FOR FEVER OR MODERATE PAIN 30 tablet 5 Active Active Problems Problem Noted Date Diagnosed Date [...] Encounters Date Type Department Care Team Description 08/26/2024 Orders Only GENERIC EXTERNAL DATA DEPARTMENT Provider, Generic External Data 07/24/2024 Orders Only GENERIC EXTERNAL DATA DEPARTMENT Provider, Generic External Data 07/24/2024 Population Health Risk Score [facility] [address] [id number] Provider, Population Health Generic 07/19/2024 Refill [facility] [address] [place], [place] [phone] Michaela Ridley MD 07/19/2024 Refill [facility] [address] [place] [address] Kayleen Arango MD Chronic bilateral thoracic back pain 06/21/2024 Refill [facility] [address] [place], [place] [phone] Kayleen Arango MD 06/02/2024 Refill [facility] [address] [place] [address] Kayleen Arango MD New onset type 2 diabetes mellitus (CMS/HCC) from Last 3 Months Immunizations Name Administration [...] WHOLE BLOOD Routine 08/26/2024 1:55 PM EDT GLUCOSE, WHOLE BLOOD Routine 07/24/2024 10:29 AM EDT HEMOGLOBIN A1C Routine 12/20/2023 8:48 AM EDT Primary hypertension LIPID PANEL, STANDARD Routine 12/17/2023 8:55 AM EDT Primary hypertension BI MAMMOGRAM DIAGNOSTIC BILATERAL Routine 09/16/2019 10:49 AM EDT from Last 3 Months or Most Recently Relevant to Health Maintenance Results * (ABNORMAL) Glucose, Whole Blood (08/26/2024 1:55 PM EDT) Only the most recent of2 resultswithin the time period is included. Glucose, Whole Blood 160(H) 60 - 115 mg/dL [facility] Comment:METER #: [id number] 5Testing performed in the Endocrinology Department [address] , [address], [place]. 08/26/2024 1:55 PM EDT 08/26/2024 1:58 PM EDT us Generic External Data Provider LAB BLOOD ORDERAB LES Final Result [facility] [address] [place] [phone] * (ABNORMAL) Hemoglobin A1c (12/20/2023 8:48 AM EDT) Hemoglobin A1c 7.5(H) <6.0 % [facility] Comment:Hemoglobin A1C Refer ence Range Adults: 4.8 - 6.0 % Non diabetic: < 6.0 % Goal: < 7.0 %Additional Action Suggested: > 8.0 %Note: Hemoglobin A1c results are invalid for patients with abnormal amounts of HbF. Blood transfusions may impact the HbA1c concentration in the patient sample. Estimated Average Glucose 169 mg/dL [facility] Comment:eAG = Estimated ave rage glucose which is %A1C expressed asaverage glucose, using the formula of the [id number] Glucose study (ADAG), Diabetes Care, Vol.31,#8,Dec. 2007 Blood Venous blood specimen / Unknown 12/20/2023 8:48 AM EDT 12/20/2023 1:58 PM EDT us Kayleen Arango MD LAB BLOOD ORDERABLES Final Resul t [facility] [address] [place] [phone] * (ABNORMAL) Lipid Panel, Standard (12/17/2023 8:55 AM EDT) Triglycerides 200(H) <150 mg/dL [facility] Comment:Desirable Triglyceri de: less than 150 mg/dLBorderline High Triglyceride 150-199 mg/dLHigh Triglyceride: 200-499 mg/dLVery High Triglyceride: greater than or equal to 5OO mg/dL Cholesterol 226(H) <200 mg/dL [facility] Comment:Desirable Cholestero l: less than 200 mg/dLBorderline High Cholesterol: 200-239 mg/dLHigh Cholesterol: greater than 239 mg/dL LDL Cholesterol Calculated 148(H) <100 mg/dL [facility] Comment:Desirable LDL: less than 100 [...] MD LAB BLOOD ORDERABLES Final Resul t [facility] [address] [place] [phone] * 3D BILATERAL DIAGN MAMMO 1 [...] Most Recently Relevant to Health Maintenance Insurance [facility] C3 Care Teams Photograph Inspector Relationship Specialty Start Date End Date Kayleen Arango MD [address] [place] [phone] PCP - General Family Medicine 06/23/13
--- OUTSIDE RECORDS SUMMARY | 2024-08-26 16:10 | XMS_ITS | Encounter Summary ---
Author Organization [employer] Address [address] [facility] [address] [place] [address] Care Team Providers Care Professional Services Consultant Name Role Phone Kayleen Arango MD Primary Care Provider [phone] Reason for Visit * Reason Onset Date Comments Nurse Triage 12/31/2023 Encounter Details Date Type Department Care Team ([facility] st Contact Info) Description 12/31/2023 Telephone [facility] [address] [place] [address] Kayleen Arango MD [address] [place] [address] Nurse Triage Social History Tobacco Use Types [...] past 12 months, has t he electric, Cashually, Fundgrazing or water [facility] threatened to shut off services in your [...] documented as of this encounter Care Teams Professional Services Consultant Relationship Specialty Start Date End Date Kayleen Arango MD [address] [place] [id number] PCP - General Family Medicine 06/23/13 documented as of this encounter
--- OUTSIDE RECORDS SUMMARY | 2024-08-26 16:10 | XMS_ITS | Encounter Summary ---
Author Organization [employer] Address [address] 7t [place] [address] Care Team Providers Care Gluing Machine Adjuster Name Role Phone Kayleen Arango MD Primary Care Provider [phone] Reason for Visit * Reason Onset Date Comments Nurse Triage 10/18/2023 Encounter Details Date Type Department Care Team ([facility] st Contact Info) Description 10/18/2023 Telephone [facility] MEDICINE [address] [place] [address] Kayleen Arango MD [address] [place] [address] Nurse Triage Social History Tobacco Use Types [...] past 12 months, has t he electric, [employer], oil or water [employer] threatened to shut off services in your [...] Triage call returned to patient with pacific Document Control Supervisor [id number] patient was seen in [facility] and treated for hand injury. Has [...] The caller accepted this outcome Patient speaks bengali and was seen on 10/15 for this symptoms and is not getting any better documented in this encounter Plan of Treatment Not on file documented as of this encounter Visit Diagnoses Not on filedocumented in this encounter Additional Health Concerns Assessment Noted Time PHQ-9 Depression Total Score: 0 12/20/19 23 9:29 AM EDT documented as of this encounter Care Teams Gluing Machine Adjuster Relationship Specialty Start Date End Date Kayleen Arango MD [address] [place] [phone] PCP - General Family Medicine 06/23/13 documented as of this encounter
--- OUTSIDE RECORDS SUMMARY | 2024-08-26 16:10 | XMS_ITS | Encounter Summary ---
Author Organization [employer] Address [address] [facility] 7t [place] [address] Care Team Providers Care Nursing Center Tutor Name Role Phone Kayleen Arango MD Primary Care Provider [phone] Reason for Visit * Reason Onset Date Comments Appointment Request 06/27/2023 Encounter Details Date Type Department Care Team ([facility] Contact Info) Description 06/27/2023 Telephone [facility] MED & PEDS [address] [place], [place] [phone] Kayleen Arango MD [address] [place] [address] Appointment Request Social History Tobacco Use Types [...] her current diagnostics. Please contact pt @ [phone] Somali Speaker documented in this encounter Plan of Treatment Not on file documented as of this encounter Visit Diagnoses Not on filedocumented in this encounter Additional Health Concerns Assessment Noted Time PHQ-9 Depression Total Score: 0 12/20/19 23 9:29 AM EDT documented as of this encounter Care Teams Nursing Center Tutor Relationship Specialty Start Date End Date Kayleen Arango MD [address] [place] [phone] PCP - General Family Medicine 06/23/13 documented as of this encounter
--- OUTSIDE RECORDS SUMMARY | 2024-08-26 16:10 | XMS_ITS | Clinical Summary ---
Author Organization [facility] Address [address] [place] [address] Phone Care Team Providers Care Retail Banking Manager Name Role Phone Kayleen Arango MD Primary Care Provider [phone] Surgical History Surgery Date Site/Laterality Comments TUBAL [...] Last Done Comments Breast Cancer Screening 1972 Diabetes: Annual GFR (Glomer ular Filtration Rate) 1972 Diabetes: Annual Foot Exam 1982 Diabetes: Annual Retina Eye Exam 1982 DTaP,Tdap,and Td Vaccines (1 - Tdap) 1991 Hepatitis B Vaccines (1 of 3 - 19+ 3-dose series) 1991 Pneumococcal Vaccine: 50+ Ye ars (1 of 2 - PCV) 1991 Pneumococcal Vaccine: Pediat rics (0 to 5 Years) and At-Risk Patients (6 to 64 Years) (1 of 2 - PCV) 1991 Cervical Cancer Screening: P ap Smear 1993 Cholesterol Screening (Lipid Panel) 04/22/2022 Colorectal Cancer Screening: Colonoscopy 04/22/2022 Depression Screening 04/22/2022 HIV Screening 04/22/2022 Hepatitis C Screening 04/22/2022 Social Influencers of Health Screening 04/22/2022 Zoster Vaccines (1 of 2) 2022 COVID-19 Vaccine (2023-2 5 season) 2024 Diabetes: Annual Urine Albumin-Creatinine Ratio (uACR) 08/19/2024 Diabetes: Blood Sugar Contro l Test (HGBA1C) 08/19/2024 Influenza Vaccine (Season Ended) 2025 HIB Vaccines Aged Out No longer eligi [...] age to complete this topic Meningococcal B Vaccine Aged Out No l onger eligible based on patient's age to complete this topic RSV Immunization Patients Un abigail 20 months Aged Out No longer eligible b ased on patient's age to complete this topic Varicella Vaccines Aged Out No longer eligible based on patient's age to complete this topic Insurance MEDICAID - [place] Care Teams Retail Banking Manager Relationship Specialty Start Date End Date Kayleen Arango MD [address] [place] [phone] PCP - General 07/05/14
== END 2024-08-26 14:35 | disposition home or self-care (01) ==
LOC: HO.ENCR 13:35
PROVIDERS: PCP Student in an Organized Health Care Education/Training Program; Visit Provider Student in an Organized Health Care Education/Training Program
DX: E11.42 Type 2 diabetes mellitus with diabetic polyneuropathy (principal); E66.01 Morbid (severe) obesity due to excess calories; Z68.41 Body mass index [BMI] 40.0-44.9, adult; E78.2 Mixed hyperlipidemia; I10 Essential (primary) hypertension; K76.0 Fatty (change of) liver, not elsewhere classified; Z13.9 Encounter for screening, unspecified
CPT/HCPCS: 99213

== ENCOUNTER → 2024-08-26 13:35 | Outpatient (BNVA) | payer MEDICAID, SELFPAY | PROVIDERS: PCP Student in an Organized Health Care Education/Training Program; Visit Provider Student in an Organized Health Care Education/Training Program | DX: E11.42 Type 2 diabetes mellitus with diabetic polyneuropathy (principal); E78.2 Mixed hyperlipidemia; I10 Essential (primary) hypertension; K76.0 Fatty (change of) liver, not elsewhere classified; E66.01 Morbid (severe) obesity due to excess calories; Z68.41 Body mass index [BMI] 40.0-44.9, adult | CPT/HCPCS: 82947; 83036; 99212 ==

== ENCOUNTER 2024-09-30 12:49 | Outpatient (REF) | payer MEDICAID, SELFPAY ==
--- NOTE | ~2024-09-30 | CT_ITS ---
EXAMINATION: CT ABDOMEN PELVIS WITHOUT IV CONTRAST HISTORY: right upper quad pain COMPARISON: There are no prior studies for comparison. TECHNIQUE: CT scan of the abdomen and pelvis was performed without contrast using standard departmental protocol. Coronal and sagittal reformatted images were generated and reviewed. The patient received oral contrast material. This CT exam was performed with one or more of the following dose reduction techniques: automated exposure control, adjustment of the mA and/or kV according to patient size, use of iterative reconstruction technique. DLP: 790 mGy-cm FINDINGS: LOWER CHEST: The visualized lung bases are clear. There is no pleural effusion. CARDIOVASCULATURE: The heart is normal in size. There is no pericardial effusion. LIVER: The liver is normal in size and contour. The liver has an unremarkable unenhanced appearance. GALLBLADDER / BILE DUCTS: The gallbladder is unremarkable. There is no intra or extrahepatic biliary ductal dilatation. SPLEEN: The spleen is normal in size and has an unremarkable unenhanced appearance. There are multiple splenules noted at the lower pole of the spleen. PANCREAS: The pancreas has an unremarkable unenhanced appearance. ADRENAL GLANDS: Unremarkable. KIDNEYS/RETROPERITONEUM: No renal calculi are identified. There is no hydronephrosis. LYMPH NODES: No retroperitoneal lymphadenopathy is identified in the abdomen or pelvis. VASCULATURE: The abdominal aorta demonstrates atherosclerotic calcification, but is normal in caliber. MESENTERY/PERITONEUM: No free fluid. No masses. There is no free intraperitoneal gas. STOMACH: There is a small hiatal hernia. The remainder of the stomach is unremarkable. SMALL BOWEL: The small bowel is normal in caliber. COLON: The colon is unremarkable. APPENDIX: The appendix is not seen, however no inflammatory changes are seen adjacent to the cecum. URINARY BLADDER/PELVIC ORGANS: The urinary bladder is unremarkable. The uterus has an unremarkable unenhanced appearance. BONES / SOFT TISSUES: No suspicious bony or soft tissue abnormalities. CT/CT abdomen pelvis wo IV con IMPRESSION: Small hiatal hernia. Otherwise unremarkable unenhanced CT of the abdomen and pelvis. Electronically signed by: Bk Ward MD 09/30/2024 03:29 PM EDT
--- OUTSIDE RECORDS SUMMARY | 2024-09-30 13:27 | XMS_ITS | Clinical Summary ---
Author Organization [facility] Address [address] [place] [phone] Phone Care Team Providers Care Team Sports Sales Associate Name Role Phone Kayleen Arango MD Primary Care Provider [phone] Allergies Active Allergy Reactions Criticality Noted Date Comments Iodinated Contrast Media Shortness of breath High Morphine Shortness of breath High 09/11/2024 Oxycodone Nausea And Vomiting 09/11/2024 Encounters Date Type Department Care Team Description 09/11/2024 9:40 AM EDT - 09/11/2024 3:09 PM EDT Emergency [facility] Emergency [address] [place] [address] Damian Aviles MD Right upper quadrant abdominal pain (Primary Dx) Discharge Disposition: Left Against Medical Advice from Last 3 Months Surgical History Surgery Date Site/Laterality Comments TUBAL [...] Value Date Recorded Sex Assigned at Female 09/11/2024 10:28 AM EDT Legal Sex Female 10:04 AM EST Gender Identity Female 09/11/2024 10:28 AM EDT Sexual Orientation Straight 09/11/2024 10 :28 AM EDT Obstetrics History Last Filed Vital Signs Vital Sign Reading Time Taken Comments Blood Pressure 118/73 09/11/2024 10:40 AM EDT Pulse 51 09/11/2024 10:40 AM EDT Temperature 36.5 ??C (97.7 ??F) 09/11/2024 10:40 AM E DT Respiratory Rate 18 09/11/2024 10:40 AM EDT Oxygen Saturation 98% 09/11/2024 10:40 AM EDT Inhaled Oxygen Concentration - - Weight 128 kg (283 lb) 09/11/2024 9:27 AM EDT Height 170.2 cm (5' 7 ) 09/11/2024 9:27 AM EDT Body Mass Index 44.32 09/11/2024 9:27 AM EDT Plan of Treatment Health Maintenance Due Date Last Done Comments Diabetes: Annual Foot Exam 1982 Diabetes: Annual Retina Eye Exam 1982 Hepatitis B Vaccines (1 of 3 - 19+ 3-dose series) 1991 Pneumococcal Vaccine: 50+ Years (1 of 2 - PCV) 1991 Pneumococcal Vaccine: Pediatrics (0 to 5 Years) and At-Risk Patients (6 to 64 Years) (1 of 2 - PCV) 1991 Cervical Cancer Screening: Pap Smear 1993 Breast Cancer Screening 09/15/2021 09/16/2019 Colorectal Cancer Screening: Colonoscopy 04/22/2022 HIV Screening 04/22/2022 Hepatitis C Screening 04/22/2022 Social Influencers of Health Screening 04/22/2022 Zoster Vaccines (1 of 2) 2022 Depression Screening 12/20/2023 12/19/2022 COVID-19 Vaccine ( season) 2024 05/09/2023, 11/26/2021, 02/14/2021, Additional history exists Diabetes: Annual Urine Albumin-Creatinine Ratio (uACR) 08/19/2024 Diabetes: Blood Sugar Control Test (HGBA1C) 08/19/2024 12/20/2023 Influenza Vaccine (Season Ended) 2025 Diabetes: Annual GFR (Glomerular Filtration Rate) 09/11/2025 09/11/2024 Hypertension/CHF/CAD Annual BMP Blood Test 09/11/2025 09/11/2024 DTaP,Tdap,and Td Vaccines (2 - Td or Tdap) 12/02/2028 12/02/2018 Cholesterol Screening (Lipid Panel) 12/16/2028 12/17/2023 HIB Vaccines Aged Out No longer eligi [...] to complete this topic RSV Immunization Patients Under 20 months Aged Out No longer eligible based on patient's age to complete this topic Varicella Vaccines Aged Out No longer eligible based on patient's age to complete this topic Procedures Procedure Name Priority Date/Time Associated Diagnosis Comments US ABDOMEN LIMITED STAT 09/11/2024 11 :58 AM EDT CBC WITH AUTO DIFFERENTIAL STAT 09/11/2024 10:20 AM EDT LIPASE STAT 09/11/2024 10:20 AM EDT COMPREHENSIVE METABOLIC PANEL STAT 09/11/2024 10:20 AM EDT CBC AND DIFFERENTIAL STAT 09/11/2024 10:20 AM EDT from Last 3 Months Results * US Abdomen Limited (09/11/2024 11:58 AM EDT) Anatomical Region Laterality Modality Body Ultrasound 09/11/2024 12:3 8 PM EDT Impressions 09/11/2024 12:40 PM EDT NO CHOLELITHIASIS, CHOLECYSTITIS, OR BILIARY DUCT DILATATION. HEPATIC STEATOSIS WITH HEPATOMEGALY. -------- FINAL REPORT -------- Dictated By: MACRINA YOO Dictated Date: 09/11/2024 12:38 ET Assigned Physician: MACRINA YOO Reviewed and Electronically Signed By: MACRINA YOO Signed Date: 09/11/2024 12:40 ET Workstation ID: [id number] Transcribed By: Self Edit Transcribed Date: 09/11/2024 12:38 ET Narrative 09/11/2024 12:40 PM EDT PROCEDURE: US ABDOMEN LIMITED INDICATION: Pain TECHNIQUE: ??2-D canseco scale, color Doppler ultrasound of the abdomen. COMPARISON: Ultrasound 07/10/2021. FINDINGS: Visualized portions of the pancreas, aorta, and IVC are within normal limits. Hepatic steatosis with hepatomegaly. ??No focal liver lesions. ??Normal directional flow within the main portal vein. No cholelithiasis or gallbladder wall thickening. ??Sonographic Benitez sign is negative. ??No biliary duct dilatation. ??Common bile duct measures 4 mm. No ascites. Procedure Note Macrina Yoo MD - 09/11/2024 PROCEDURE: US ABDOMEN LIMITED INDICATION: Pain TECHNIQUE: 2-D canseco scale, color Doppler ultrasound of the abdomen. COMPARISON: Ultrasound 07/10/2021. FINDINGS: Visualized portions of the pancreas, aorta, and IVC are withinnormal limits. Hepatic steatosis with hepatomegaly. No focal liver lesions. Normaldirectional flow within the main portal vein. No cholelithiasis or gallbladder wall thickening. Sonographic Benitez signis negative. No biliary duct dilatation. Common bile duct measures 4mm. No ascites. IMPRESSION: NO CHOLELITHIASIS, CHOLECYSTITIS, OR BILIARY DUCT DILATATION. HEPATIC STEATOSIS WITH HEPATOMEGALY. -------- FINAL REPORT -------- Dictated By: MACRINA YOO Dictated Date: 09/11/2024 12:38 ET Assigned Physician: MACRINA YOO Reviewed and Electronically Signed By: MACRINA YOO Signed Date: 09/11/2024 12:40 ET Workstation ID: [id number] Transcribed By: Self Edit Transcribed Date: 09/11/2024 12:38 ET us Damian Aviles MD [facility] US PROCEDURES Final Result * (ABNORMAL) CBC auto differential (09/11/2024 10:20 AM EDT) WBC 7.7 4.8 - 10.8 K/[facility] LAB HEMETOLOGY METHOD 09/11/2024 11:34 AM [facility] RBC 4.90(H) 3.80 - 4.80 M/mcL LAB HEMETOLOGY METHOD 09/11/2024 11:34 AM [facility] Hemoglobin 13.2 11.5 - 16.0 g/dL LAB HEMETOLOGY METHOD 09/11/2024 11:34 AM [facility] Hematocrit 42.0 35.0 - 47.0 % LAB HEMETOLOGY METHOD 09/11/2024 11:34 AM [facility] MCV 85.2 79.0 - 98.0 FL LAB HEMETOLOGY METHOD 09/11/2024 11:34 AM [facility] MCH 26.8(L) 27.0 - 32.0 pcg LAB HEMETOLOGY METHOD 09/11/2024 11:34 AM [facility] MCHC 31.4(L) 32.0 - 37.0 g/dL LAB HEMETOLOGY METHOD 09/11/2024 11:34 AM [facility] RDW 14.1 11.0 - 15.0 % LAB HEMETOLOGY METHOD 09/11/2024 11:34 AM [facility] Platelets 233 130 - 400 K/mcL LAB HEMETOLOGY METHOD 09/11/2024 11:34 AM [facility] MPV 11.8(H) 7.0 - 11.0 FL LAB HEMETOLOGY METHOD 09/11/2024 11:34 AM [facility] NRBC 0.0 <1.0 % LAB HEMETOLOGY METHOD 09/11/2024 11:34 AM [facility] NRBC Absolute 0.00 <0.10 K/mcL LAB HEMETOLOGY METHOD 09/11/2024 11:34 AM [facility] Neutrophils Relative 64.8 % LAB HEMETOLOGY METHOD 09/11/2024 11:34 AM [facility] Lymphocytes Relative 26.5 % LAB HEMETOLOGY METHOD 09/11/2024 11:34 AM [facility] Monocytes Relative 6.7 % LAB HEMETOLOGY METHOD 09/11/2024 11:34 AM [facility] Eosinophils Relative 1.4 % LAB HEMETOLOGY METHOD 09/11/2024 11:34 AM [facility] Basophils Relative 0.3 % LAB HEMETOLOGY METHOD 09/11/2024 11:34 AM [facility] Immature Granulocytes Relative 0.3 % LAB HEMETOLOGY METHOD 09/11/2024 11:34 AM [facility] Neutrophils Absolute 5.00 1.50 - 7.00 K/mcL LAB HEMETOLOGY METHOD 09/11/2024 11:34 AM [facility] Lymphocytes Absolute 2.04 1.00 - 5.00 K/mcL LAB HEMETOLOGY METHOD 09/11/2024 11:34 AM [facility] Monocytes Absolute 0.52 0.20 - 1.00 K/mcL LAB HEMETOLOGY METHOD 09/11/2024 11:34 AM [facility] Eosinophils Absolute 0.11 0.00 - 0.50 K/mcL LAB HEMETOLOGY METHOD 09/11/2024 11:34 AM [facility] Basophils Absolute 0.02 0.00 - 0.20 K/mcL LAB HEMETOLOGY METHOD 09/11/2024 11:34 AM [facility] Immature Granulocytes Absolute 0.02 0.00 - 0.03 K/mcL LAB HEMETOLOGY METHOD 09/11/2024 11:34 AM [facility] Blood Venous blood specimen / Unknown Venipuncture / Unknown 09/11/2024 10:20 AM EDT 09/11/2024 11:21 AM EDT us Damian Aviles MD LAB BLOOD ORDERABLES Final Resu lt Performing Organization Address City/[facility]/ZIP Co de Phone Number [facility] [address] [place] [address], [place] [phone] * Lipase (09/11/2024 10:20 AM EDT) [facility] Lipase 34 13 - 75 unit/L LAB CHEMISTRY METHOD 09/11/2024 11:53 AM EDT [facility] Blood Venous blood specimen / Unknown Venipuncture / Unknown 09/11/2024 10:20 AM EDT 09/11/2024 11:21 AM EDT us Damian Aviles MD LAB BLOOD ORDERABLES Final Resu lt Performing Organization Address City/[facility]/ZIP Co de Phone Number [facility] [address] [place] [address], [place] [phone] * (ABNORMAL) Comprehensive metabolic panel (09/11/2024 10:20 AM EDT) [facility] Sodium 136 133 - 145 mmol/L LAB CHEMISTRY METHOD 09/11/2024 11:56 AM [facility] Potassium 4.0 3.5 - 5.5 mmol/L LAB CHEMISTRY METHOD 09/11/2024 11:56 [facility] Chloride 101 96 - 110 mmol/L LAB CHEMISTRY METHOD 09/11/2024 11:56 AM [facility] CO2 30 21 - 32 mmol/L LAB CHEMISTRY METHOD 09/11/2024 11:56 AM [facility] Anion Gap 5 3 - 11 LAB CHEMISTRY METHOD 09/11/2024 11:56 AM [facility] Glucose 113(H) 70 - 100 mg/dL LAB CHEMISTRY METHOD 09/11/2024 11:56 AM [facility] BUN 14 5 - 25 mg/dL LAB CHEMISTRY METHOD 09/11/2024 11:56 AM [facility] Creatinine 0.90 0.50 - 1.10 mg/dL LAB CHEMISTRY METHOD 09/11/2024 11:56 AM [facility] eGFR 77 >=60 mL/min/1. 73m2 LAB CHEMISTRY METHOD 09/11/2024 11:56 AM [facility] Comment:Calculation based on the??Chronic Kidney Disease Epidemiology Collaboration (CKD-EPI) equation refit??without adjustment for race. BUN/Creatinine Ratio 15.6 LAB CHEMISTRY METHOD 09/11/2024 11:56 AM [facility] Calcium 9.7 8.5 - 10.5 mg/dL LAB CHEMISTRY METHOD 09/11/2024 11:56 AM [facility] AST (SGOT) 16 10 - 42 unit/L LAB CHEMISTRY METHOD 09/11/2024 11:56 AM [facility] ALT (SGPT) 29 10 - 60 unit/L LAB CHEMISTRY METHOD 09/11/2024 11:56 AM [facility] Alkaline Phosphatase 102 42 - 121 unit/L LAB CHEMISTRY METHOD 09/11/2024 11:56 AM [facility] Total Protein 7.4 6.0 - 8.0 g/dL LAB CHEMISTRY METHOD 09/11/2024 11:56 AM [facility] Albumin 3.8 3.2 - 5.0 g/dL LAB CHEMISTRY METHOD 09/11/2024 11:56 AM [facility] Total Bilirubin 0.5 0.0 - 1.4 mg/dL LAB CHEMISTRY METHOD 09/11/2024 11:56 AM [facility] Blood Venous blood specimen / Unknown Venipuncture / Unknown 09/11/2024 10:20 AM EDT 09/11/2024 11:21 AM EDT us Damian Aviles MD LAB BLOOD ORDERABLES Final Resu lt [facility] [address] [place] [address], [place] [phone] from Last 3 Months Insurance MEDICAID - [place] Care Teams Team Sports Sales Associate Relationship Specialty Start Date End Date Kayleen Arango MD [address] [place] [address] PCP - General 07/05/14
--- OUTSIDE RECORDS SUMMARY | 2024-09-30 13:28 | XMS_ITS | Clinical Summary ---
Author Organization [employer] Address [address] [facility] 7t [place] [address] Care Team Providers Care Metal Casting Trades Worker Name Role Phone Kayleen Arango MD Primary Care Provider [phone] Allergies Active Allergy Reactions Criticality Noted Date [...] MOUTH 3 TIMES A DAY NEEDED FOR WHEEZING/SHORTN ESS OF BREATH 2 Active hydrALAZINE (Apresoline) 10 [...] 25 Active Blood Glucose Monitoring Suppl (FreeStyle Sandwich Lite) w/Device kitIndications: New onset type 2 [...] OR MODERATE PAIN 30 tablet 5 Active lidocaine (Lidoderm) 5 % patch Apply 1 patch topically Once per day. Remove & discard patch within 12 hours or as directed by MD. 30 patch 2 5 09/10/19 26 Active tiZANidine (Zanaflex) 2 MG tablet Take 1 tablet (2 mg) by mouth every 8 (eight) hours if needed (pain). May cause drowsiness 30 tablet 5 Active Active Problems Problem [...] Date Type Department Care Team Description 09/11/2024 Orders Only [facility] [employer] [address] [place], [place] [phone] Provider, MD [place] 09/09/2024 3:20 PM EDT Office Visit [facility] [address] [place], [place] [phone] Cesar Gunn MD Right upper quadrant abdominal pain (Primary Dx) 09/09/2024 Travel 08/26/2024 Orders Only GENERIC EXTERNAL DATA DEPARTMENT Provider, Generic External Data 07/24/2024 Orders Only GENERIC EXTERNAL DATA DEPARTMENT Provider, Generic External Data 07/24/2024 Population Health Risk Score [facility] [address] [phone] Provider, Population Health Generic 07/19/2024 Refill [facility] [address] [place] [address] Michaela Ridley MD 07/19/2024 Refill [facility] [address] [place] [address] Kayleen Arango MD Chronic bilateral thoracic back pain from Last 3 Months Immunizations Immunization Administration Dates Next Due Tdap 12/02/2018 Social [...] Sign Reading Time Taken Comments Blood Pressure 153/73 09/09/2024 3:10 PM EDT Pulse 84 09/09/2024 3:10 PM EDT Temperature 36.6 ??C (97.9 ??F) 09/09/2024 3:10 PM ED T Respiratory Rate 17 09/09/2024 3:10 PM EDT Oxygen Saturation 98% 09/09/2024 3:10 PM EDT Inhaled Oxygen Concentration - - Weight 129 kg (283 lb 6.4 oz) 09/09/2024 3:10 PM EDT Height 170.2 cm (5' 7 ) 03/04/2024 10:01 AM EDT Body Mass Index 44.39 03/04/2024 10:01 AM EDT Plan of Treatment Health Maintenance Due Date Last Done Comments CT Colonography 1972 Colonoscopy 1972 Colorectal Cancer Screening 1972 FIT DNA/Cologuard 1972 FIT 1972 FOBT 1972 HIV Screening 1972 Sigmoidoscopy 1972 Disability Screening 1972 Diabetes: Foot Exam 1982 Eye Exam [...] 09/10, 04/20/2021, Additional history exists Tobacco Screening 09/09/2025 09/09/2024 DTaP/Tdap/Td Vaccines (2 - Td or Tdap) [...] Date/Time Associated Diagnosis Comments US ABDOMEN LIMITED Routine 09/11/2024 2: 30 PM EDT GLUCOSE, WHOLE BLOOD Routine 08/26/2024 1:55 PM EDT GLUCOSE, WHOLE BLOOD Routine 07/24/2024 10:29 AM EDT HEMOGLOBIN A1C Routine 12/20/2023 8:48 AM EDT Primary hypertension LIPID PANEL, STANDARD Routine 12/17/2023 8:55 AM EDT Primary hypertension BI MAMMOGRAM DIAGNOSTIC BILATERAL Routine 09/16/2019 10:49 AM EDT from Last 3 Months or Most Recently Relevant to Health Maintenance Results * US Abdomen Limited (09/11/2024 2:30 PM EDT) Anatomical Region Laterality Modality Abdomen Ultrasound us Historical Provider MD TAMAYO US PROCEDURES Final R esult * (ABNORMAL) Glucose, Whole Blood (08/26/2024 1:55 PM EDT) Only the most recent of2 resultswithin the time period is included. Glucose, Whole Blood 160(H) 60 - 115 mg/dL [facility] Comment:METER #: [id number] 5Testing performed in the Endocrinology Department [address] , [address], [facility]. 08/26/2024 1:55 PM EDT 08/26/2024 1:58 PM EDT us Generic External Data Provider LAB BLOOD ORDERAB LES Final Result Performing Organization Address [facility] Co de Phone Number [facility] [address] [place] [phone] * (ABNORMAL) Hemoglobin A1c (12/20/2023 8:48 AM EDT) Hemoglobin A1c 7.5(H) <6.0 % [facility] Comment:Hemoglobin A1C Refer ence Range Adults: 4.8 - 6.0 % Non diabetic: < 6.0 % Goal: < 7.0 %Additional Action Suggested: > 8.0 %Note: Hemoglobin A1c results are invalid for patients with abnormal amounts of HbF. Blood transfusions may impact the HbA1c concentration in the patient sample. Estimated Average Glucose 169 mg/dL [facility] Comment:eAG = Estimated ave rage glucose which is %A1C expressed asaverage glucose, using the formula of the T3R-AjbztlnGopjvfk Glucose study (ADAG), Diabetes Care, Vol.31,#8,2007 Blood Venous blood specimen / Unknown 12/20/2023 8:48 AM EDT 12/20/2023 1:58 PM EDT us Kayleen Arango MD LAB BLOOD ORDERABLES Final Resul t Performing Organization Address City/[facility]/ZIP Co de Phone Number [facility] [address] [place] [address] [phone] * (ABNORMAL) Lipid Panel, Standard (12/17/2023 8:55 AM EDT) Triglycerides 200(H) <150 mg/dL [facility] Comment:Desirable Triglyceri de: less than 150 mg/dLBorderline High Triglyceride 150-199 mg/dLHigh Triglyceride: 200-499 mg/dLVery High Triglyceride: greater than or equal to 5OO mg/dL Cholesterol 226(H) <200 mg/dL [facility] Comment:Desirable Cholestero l: less than 200 mg/dLBorderline High Cholesterol: 200-239 mg/dLHigh Cholesterol: greater than 239 mg/dL LDL Cholesterol Calculated 148(H) <100 mg/dL [facility] Comment:Desirable LDL: less than 100 mg/dLNear Optimal/Above Optimal LDL: 110- 129 mg/dLBorderline High LDL: 130-159 mg/dLHigh LDL: 160-189 mg/dLVery High LDL: greater than or equal to 190 mg/dL HDL Cholesterol 38(L) >40 mg/dL [facility] Comment:Desirable HDL: great er than 40 mg/dL Note: This HDL assay may give artificially low results in patients with liver disease. Blood Venous blood specimen / Unknown 12/17/2023 8:55 AM EDT 12/17/2023 2:02 PM EDT us Kayleen Arango MD LAB BLOOD ORDERABLES Final Resul t [facility] [address] [place] [address] [phone] * 3D BILATERAL DIAGN MAMMO 1 [...] to Health Maintenance Insurance C3 Care Teams Metal Casting Trades Worker Relationship Specialty Start Date End Date Kayleen Arango MD [address] [place] [phone] PCP - General Family Medicine 06/23/13
--- OUTSIDE RECORDS SUMMARY | 2024-09-30 13:28 | XMS_ITS | Encounter Summary ---
Author Organization [facility] Address [address] [facility] 7t [place] [address] Care Team Providers Care Test Developer Name Role Phone Kayleen Arango MD Primary Care Provider [phone] Reason for Visit * Reason Onset Date Comments Appointment Request 06/27/2023 Encounter Details Date Type Department Care Team ([facility] Contact Info) Description 06/27/2023 Telephone [facility] [address] [place], [place] [phone] Kayleen Arango MD [address] [place] [address] Appointment Request Social History Tobacco Use Types [...] her current diagnostics. Please contact pt @ [phone] Croatian Speaker documented in this encounter Plan of Treatment Not on file documented as of this encounter Visit Diagnoses Not on filedocumented in this encounter Additional Health Concerns Assessment Noted Time PHQ-9 Depression Total Score: 0 12/20/19 23 9:29 AM EDT documented as of this encounter Care Teams Test Developer Relationship Specialty Start Date End Date Kayleen Arango MD [address] [place] [phone] PCP - General Family Medicine 06/23/13 documented as of this encounter
--- OUTSIDE RECORDS SUMMARY | 2024-09-30 13:28 | XMS_ITS | Encounter Summary ---
Author Organization [employer] Address [address] [facility] [address] [place] [address] Care Team Providers Care Therapeutic Dietitian Name Role Phone Kayleen Arango MD Primary Care Provider [phone] Reason for Visit * Reason Onset Date Comments Nurse Triage 12/31/2023 Encounter Details Date Type Department Care Team ([facility] st Contact Info) Description 12/31/2023 Telephone [facility] MEDICINE [address] [place] [address] Kayleen Arango MD [address] [place] [address] Nurse Triage Social History Tobacco Use Types [...] past 12 months, has t he electric, [employer], [employer] or water sickweather threatened to shut off services in your [...] documented as of this encounter Care Teams Therapeutic Dietitian Relationship Specialty Start Date End Date Kayleen Arango MD [address] [place] [id number] PCP - General Family Medicine 06/23/13 documented as of this encounter
--- OUTSIDE RECORDS SUMMARY | 2024-09-30 13:28 | XMS_ITS | Encounter Summary ---
Author Organization [employer] Address [address] [facility] [address] [place] [address] Care Team Providers Care Founder Name Role Phone Kayleen Arango MD Primary Care Provider [phone] Reason for Visit * Reason Onset Date Comments Nurse Triage 10/18/2023 Encounter Details Date Type Department Care Team ([facility] st Contact Info) Description 10/18/2023 Telephone [facility] MEDICINE [address] [place] [address] Kayleen Arango MD [address] [place] [address] Nurse Triage Social History Tobacco Use Types [...] past 12 months, has t he electric, [employer], oil or water [employer] threatened to shut off services in your [...] Triage call returned to patient with pacific Poultry Farm Supervisor [phone] patient was seen in [facility] and treated for hand injury. Has [...] The caller accepted this outcome Patient speaks lithuanian and was seen on 10/15 for this symptoms and is not getting any better documented in this encounter Plan of Treatment Not on file documented as of this encounter Visit Diagnoses Not on filedocumented in this encounter Additional Health Concerns Assessment Noted Time PHQ-9 Depression Total Score: 0 12/20/19 23 9:29 AM EDT documented as of this encounter Care Teams Founder Relationship Specialty Start Date End Date Kayleen Arango MD [address] [place] [id number] PCP - General Family Medicine 06/23/13 documented as of this encounter
--- OUTSIDE RECORDS SUMMARY | 2024-09-30 13:28 | XMS_ITS | Encounter Summary ---
Author Organization [employer] Address [address] [facility] [address] [place] [address] Care Team Providers Care Drawing Checker Name Role Phone Kayleen Arango MD Primary Care Provider [phone] Encounter Details Date Type Department Care Team ([facility] Contact Info) Description 09/11/2024 Orders Only [facility] [address] [place] [address] Provider, MD [place] Social History Tobacco Use Types Packs/Day Years [...] Diagnosis Comments US ABDOMEN LIMITED Routine 09/11/2024 2:30 PM EDT documented in this encounter Results * US Abdomen Limited (09/11/2024 2:30 PM EDT) Anatomical Region Laterality Modality Abdomen Ultrasound us Historical Provider MD TAMAYO US PROCEDURES Final R esult documented in this encounter Visit Diagnoses Not on filedocumented in this encounter Additional Health Concerns Assessment Noted Time PHQ-9 Depression Total Score: 0 12/20/19 23 9:29 AM EDT documented as of this encounter Care Teams Drawing Checker Relationship Specialty Start Date End Date Kayleen Arango MD [address] [place] [id number] PCP - General Family Medicine 06/23/13 documented as of this encounter
[2024-09-30] MEDS: Barium Sulfate Oral (Mocha) 450 ML ORAL.SUSP 900 ML PO (15:22)
== END 2024-09-30 12:50 | disposition home or self-care (01) ==
LOC: HO.CT 12:49
PROVIDERS: PCP Student in an Organized Health Care Education/Training Program; Visit Provider Emergency Medicine
DX: R10.11 Right upper quadrant pain (principal)
CPT/HCPCS: 74176

== ENCOUNTER → 2024-09-30 12:52 | Outpatient (BNV) | payer MEDICAID, SELFPAY | PROVIDERS: PCP Student in an Organized Health Care Education/Training Program; Visit Provider Radiology Diagnostic Radiology | DX: K44.9 Diaphragmatic hernia without obstruction or gangrene (principal) | CPT/HCPCS: 74176 ==

== ENCOUNTER → 2024-10-12 07:32 | Outpatient (REF) | payer MEDICAID, SELFPAY ==
--- NOTE | ~2024-10-12 | NM_ITS ---
EXAMINATION: NM HEPATOBILIARY WITH PHARM HISTORY: History of right upper quadrant pain with ultrasounds negative for gallstones. TECHNIQUE: An hepatobiliary scan was performed following the intravenous administration of 5 mCi technetium 99m-mebrofenin. Sequential images were obtained over 1 hour. Subsequently, the patient received 2.6 microgram of IV CCK over 30 minutes and additional imaging was performed. COMPARISON: Correlation is made with a CT of the abdomen without contrast dated 09/30/2024. FINDINGS: There is normal uptake and excretion of the radiopharmaceutical by the liver. Gallbladder activity is noted at 12 minutes. Common bile duct activity is seen at 63 minutes. Small bowel activity is noted at 63 minutes. After the administration of intravenous CCK, the estimated gallbladder ejection fraction is 90%, which is within normal limits (normal 35-80%). NM/NM hepatobiliary w pharm IMPRESSION: Normal hepatobiliary scan with normal gallbladder ejection fraction. Electronically signed by: Bk Ward MD 10/12/2024 11:15 AM EDT
== END ==
LOC: HO.NUCMED 07:32
PROVIDERS: PCP Student in an Organized Health Care Education/Training Program; Visit Provider Emergency Medicine
DX: R10.11 Right upper quadrant pain (principal)
CPT/HCPCS: 78227; A9537; J2805

== ENCOUNTER → 2024-10-12 07:35 | Outpatient (BNV) | payer MEDICAID, SELFPAY | PROVIDERS: PCP Student in an Organized Health Care Education/Training Program; Visit Provider Radiology Diagnostic Radiology | DX: R10.11 Right upper quadrant pain (principal) | CPT/HCPCS: 78227 ==

== ENCOUNTER 2024-10-15 08:39 | Outpatient (AMB) | payer MEDICAID, SELFPAY ==
[2024-10-15 08:42] VITALS: BP 128/82; PULSE 67; O2SAT 95; BMI 45.0
--- NOTE | 2024-10-15 08:42 | MHC.OFFVIS ---
Vital Signs 10/15/24 08:42 Height 5 ft 7 in Weight 287 lb 4.197 oz BMI 45.0 BP 128/82 Blood Pressure Location Lt brachial Position Sitting Pulse 67 Pulse Source Pulse Oximeter Pulse Oximetry (%) 95 Oxygen Delivery Method Room Air Intake Visit Reasons: T2DM Intake Note: Patient present today for Type 2 Diabetes Mellitus Last Diabetic eye exam: Over 2 years ago Last Podiatry Visit: Doesn't have one Random Glucose: 134 mg/dl HgA1C: 6.4% 08/26/24 Plastics Production Machine Operator Required: No Accompanied by: Self / Same As Patient Allergies morphine Allergy (Unknown, Verified 10/15/24 08:49) Anaphylaxis Iodinated Contrast Media [IV Contrast Dye] Allergy (Verified 10/15/24 08:49) Anaphylaxis HPI Comments Details: 53-year-old female coming in today for follow up of type 2 diabetes mellitus and thyroid dysfunction which has resolved. Type 2 diabetes mellitus without long-term insulin use Type 2 diabetes mellitus Diagnosed December 2023 Hba1c 7.5 % 202303/30/24 : A1c 7 % 05/28/24: A1c 6.6% 08/26/2024. HgA1C: 6.4% Prior medications tried Metformin caused severe explosive diarrhea and GI intolerance pt could not tolerate Jardiance 10 mg daily stopped in August 2024 due to yeast and urine infections x2 Was on Trulicity 0.75 mg weekly which caused explosive diarrhea, 5-6 stools per day, abdominal pain, unable to tolerate along with severe headaches Interval history LAst week used prednisone 5 days 40 mg daily, due to asthma exacerbation , now done Current Medications Now on Ozempic 0.25 mg weekly started September 2024, tolerating that well. SMBGs: Forgot to bring glucometer today. Mentions that over the past few days blood sugars were in the 200s because of steroid use, now come down to 150s. Fasting readings are high in the 130s Fasting today: 135 mg/dl Never hospitalised for low or high blood sugars Complains of increased urination, increased thirst. Exercise: none Weight BMI 45 kg/m2 Weight : Gained 8 lb since May 2024. Saw the checkering machine operator. We had prescribed her Wegovy which got denied by her insurance. Prescribed Trulicity 0.75 mg weekly in June 2024, she is not able to tolerate as mentioned above adverse effects Food : Homemaker Wakes up at 6 or 7 AM Breakfast 9 to 11 AM 4-5 crackers with coffee, with milk and sugar 2 teaspoons Lunch at 1-2 pm : sandwich , very variable Dinner: 5 pm : rice, pasta with veggies with meat Mostly home made meals has eliminated sugary drinks, met with checkering machine operator Exercise :manjinder twice a week 1 hr Family history: mother, maternal grandmother, sisters have type 2 DM No history of pancreatitis No family history of medullary thyroid cancer Complications Last Diabetic eye exam:Many years ago needs one Last Podiatry Visit: needs one Eye doctor: none recently, no history of retinopathy, referral was sent and she was given the number to call, still not called Neuropathy: has numbness and tingling in feet since 2 years , podiatry referral placed, patient given number to call No kidney disease No stroke or heart attack Alcohol: none MASLD evaluation FIB 4 index score 1.37 based on labs in May 2024, NAFLD score also at 1.37. Has appointment coming up with GI on 10/19/2024. EKATERINA/ ARB: On valsartan 160 mg daily, urine microalbumin 193 05/28/24 HLD: On simvastatin 20 mg daily , LDL 87 mg/dl 04/05 Physical exam General: sitting comfortably in bed in no acute distress HEENT: normocephalic/atraumatic, moist oral mucosa Neck: supple, symmetrical, no thyromegaly Cardiac: normal heart sounds Pulm: normal breath sounds B/L, no added breath sounds Abd: not distended, no tenderness Extremities: no edema, no signs of myxedema, no tremors Neuro: AAO x3, Speech: normal, no facial droop, moving all 4 extremities foot exam: 07/24/2024: Skin sloughing noted. Right big toe got injured, and has a broken nail, no left big toe looks like fungal infection. Intact sensation to monofilament, warm and well-perfused, intact pulses Laboratory Tests 12/20/23 12/20/23 03/30/24 08:46 08:48 09:01 Creatinine 0.83 Estimated GFR > 60 Hemoglobin A1c % 7.5 H 7.0 H Triglycerides 138 Cholesterol 145 LDL Cholesterol, Calc 87 HDL Cholesterol 31 L TSH 0.11 L Free T4 1.10 Laboratory Tests 11/18/24 11/18/24 01/16/25 09:01 09:10 09:27 Plt Count 233 Sodium 139 Potassium 4.0 Creatinine 0.80 Estimated GFR > 60 Hemoglobin A1c % 7.0 H 6.6 H Calcium 9.5 AST 26 ALT 18 Triglycerides 138 Cholesterol 145 LDL Cholesterol, Calc 87 HDL Cholesterol 31 L TSH 1.73 Free T4 1.01 Total T3 125 Thyroid Stim Immunoglob <89 Urine Creatinine 133.18 97.57 Urine Microalbumin 145.0 189.0 Microalb/Creat Ratio 108.8 H 193.7 H TSH Receptor Ab <1.00 [facility] Medical History (Updated 07/24/24 @ 10:55 by Kaleigh Augustine MD) Metabolic dysfunction-associated fatty liver disease (MAFLD) HTN (hypertension) HLD (hyperlipidemia) Obesity Diabetes mellitus Subclinical hyperthyroidism Surgical History History of laparoscopic appendectomy H/O tubal ligation Family History Mother Hypertension Thyroid crisis High cholesterol Father Heart problem Social History Alcohol intake: never Patient Tobacco Use Status: Never used Tobacco Physical Exam Vital Signs: Last Vital Signs Pulse 67 10/15/24 08:42 BP 128/82 10/15/24 08:42 Pulse Ox 95 10/15/24 08:42 Oxygen Delivery Method Room Air 10/15/24 08:42 BMI result Body Mass Index 45.0 Results Reviewed Results Reviewed: Laboratory Last Values Glucose (Clinic) 134 mg/dL (60-115) H 10/15/24 08:52 Assessment & Plan Assessment & Plan (1) Diabetes mellitus: Code(s): E11.9 - Type 2 diabetes mellitus without complications Category: Medical Qualifiers: Diabetes mellitus type: type 2 Diabetes mellitus long wall shear operator insulin use: without long wall shear operator use Diabetes mellitus complication status: with neurologic complications Diabetes mellitus complication detail: with polyneuropathy Qualified Code(s): E11.42 - Type 2 diabetes mellitus with diabetic polyneuropathy Plan: Patient with new onset of diabetes in December 2023, with no insulin use, complication of neuropathy. A. Last HBA1c point of care today 08/26/2024 at 6.4% which is stable from 6.6% from May 2024 down from 7% from March 2024 down from 7.5 % December 2023 the time of diagnosis. However patient was on Ozempic 0.25 mg weekly injection and she took 4 injections up until May 2024 after which insurance denied her Ozempic when we increase the dose. She could not tolerate metformin which was initiated at the time of her diagnosis due to explosive diarrhea, we had her on Jardiance up until August 2024 however she has had her 2nd UTI on it and now Jardiance has been stopped. Could not tolerate Trulicity due to explosive diarrhea and severe headaches, now back on Ozempic which she is tolerating well. She has taken 4 injections of the 0.25 mg weekly dose, continues to have high fasting blood sugars in the 130s, we will up titrate her dose. She has been doing well in terms of her activity, has joint dance classes and Manjinder and walking. D:?Diet control and healthy lifestyle was discussed in detail. Emphasis was made on exercise and physical activity in daily routine with at least 30-45 minutes of aerobic exercise 5-6 days a week. My Plate plan I discussed portion control. E: Last visit with paint tinter : No recent visit. No diabetic retinopathy. Ophthalmology referral placed last visit, patient never heard from them, I also gave her the number today to call the clinic., patient counseled to see eye doctor. She is still has not called. Again emphasized today. F: From January visit: Foot care is suboptimal, skin sloughing noted. Intact sensation to monofilament. Advised about regular foot daily in the morning. I also put in a referral for Podiatry. She is pending an appointment with them. G: eGFR >December and microalbumin/Cr ratio 108: From March 2024. Plan: -increase Ozempic to 0.5 mg weekly -continue monitoring fasting blood sugars -ophthalmology referral in place, number given -podiatry referral placed , pending appointment -lifestyle modification discussed again with 30 minutes of exercise daily., she is already doing a good job with activity. -follow up in 3 months (2) Obesity: Code(s): E66.9 - Obesity, unspecified Category: Medical Qualifiers: Obesity type: due to excess calories Obesity classification: adult class 3 (BMI >= 40) Serious obesity comorbidity presence: with serious comorbidity Body mass index: BMI 40.0-44.9 Qualified Code(s): E66.01 - Morbid (severe) obesity due to excess calories; Z68.41 - Body mass index [BMI] 40.0-44.9, adult Plan: BMI 45 kg per m2. 287 lb. Has gained another 7-8 lb since May 2024. She would be a candidate for bariatric surgery. I discussed this with her today, however she is not interested in surgery at this time. She would like to continue on medical management. Plan: -lifestyle modification discussed l -follow up with checkering machine operator -increase Ozempic to 0.5 mg weekly (3) HLD (hyperlipidemia): Code(s): E78.5 - Hyperlipidemia, unspecified Category: Medical Qualifiers: Hyperlipidemia type: mixed hyperlipidemia Qualified Code(s): E78.2 - Mixed hyperlipidemia Plan: Most recent LDL from March 2024 down to 87 mg/dL since she has started the simvastatin again. Also noted to have elevated triglycerides and total cholesterol. She was not taking her simvastatin regularly before and just started in January 03. Plan: -continue taking simvastatin -Her FIb 4 index came back at 1.37 : Concern for metabolic associated dysfunction liver disease, referred to GI for assessment for fibrosis, pending appointment on 10/19/2024 (4) HTN (hypertension): Code(s): I10 - Essential (primary) hypertension Category: Medical Qualifiers: Hypertension type: primary hypertension Qualified Code(s): I10 - Essential (primary) hypertension Plan: Blood pressure at goal. Plan: -continue valsartan 160 mg daily and carvedilol 12.5 mg BID (5) Metabolic dysfunction-associated fatty liver disease (MAFLD): Code(s): K76.0 - Fatty (change of) liver, not elsewhere classified Category: Medical Plan: Could not tolerate Trulicity, we will switch to Ozempic 0.25 mg weekly -Lifestyle modification advised with 30 minutes of exercise daily, cutting out trans saturated and polysaccharide it fats Fifty-four index score 1.37, NAFLD score also 1.37, referred to GI for evaluation of liver fibrosis, pending appointment 10/19/2024 Plan I spent 30 minutes in reviewing the record, seeing the patient and documenting in the medical record. Medications: Changed From semaglutide (Ozempic) for 4 weeks 0.25 mg (0.368 mL) subcut QWEEK 3 mL 6RF To semaglutide (Ozempic) 0.5 mg (0.736 mL) subcut QWEEK 3 mL 4RF Patient Instructions: Increase Ozempic to 0.5 mg weekly Call eye doctor number given last visit See podiatry Bring meter to all appointments Coding Level of Care Code Est Pt Level 4 (50109) Complex EM visit Add On G2211 Diagnoses Type 2 diabetes mellitus with diabetic polyneuropathy, without long-term current use of insulin E11.42 Diabetes mellitus type: type 2 Diabetes mellitus detention insulin use: without long wall shear operator use Diabetes mellitus complication status: with neurologic complications Diabetes mellitus complication detail: with polyneuropathy Class 3 severe obesity due to excess calories with serious comorbidity and body mass index (BMI) of 40.0 to 44.9 in adult E66.01; Z68.41 Obesity type: due to excess calories Obesity classification: adult class 3 (BMI >= 40) Serious obesity comorbidity presence: with serious comorbidity Body mass index: BMI 40.0-44.9 Mixed hyperlipidemia E78.2 Hyperlipidemia type: mixed hyperlipidemia Primary hypertension I10 Hypertension type: primary hypertension Metabolic dysfunction-associated fatty liver disease (MAFLD) K76.0 Time Spent (min) 30
[2024-10-15 08:57] LABS: Glucose, Whole Blood 134 mg/dL (60-115)
--- OUTSIDE RECORDS SUMMARY | 2024-10-15 09:05 | XMS_ITS | Clinical Summary ---
Author Organization [facility] Address [address] [place] [id number] Phone Care Team Providers Care Data Warehouse Manager Name Role Phone Kayleen Arango MD Primary Care Provider [phone] Allergies Active Allergy Reactions Criticality Noted Date Comments Iodinated Contrast Media Shortness of breath High Morphine Shortness of breath High 09/11/2024 Oxycodone Nausea And Vomiting 09/11/2024 Encounters Date Type Department Care Team Description 09/11/2024 9:40 AM EDT - 09/11/2024 3:09 PM EDT Emergency [facility] Emergency [address] [place] [address] Damian Aviles MD Right upper [...] Signed Date: 09/11/2024 12:40 ET Workstation ID: [id number] Transcribed By: Self Edit Transcribed Date: 09/11/2024 [...] Signed Date: 09/11/2024 12:40 ET Workstation ID: [id number] Transcribed By: Self Edit Transcribed Date: 09/11/2024 12:38 ET us Damian Aviles MD [facility] US PROCEDURES Final Result * (ABNORMAL) CBC auto differential (09/11/2024 10:20 AM EDT) WBC 7.7 4.8 - 10.8 K/[facility] LAB HEMETOLOGY METHOD 09/11/2024 11:34 AM [facility] RBC 4.90(H) 3.80 - 4.80 M/mcL LAB HEMETOLOGY METHOD 09/11/2024 11:34 AM [facility] Hemoglobin 13.2 11.5 - 16.0 g/dL LAB HEMETOLOGY METHOD 09/11/2024 11:34 AM [facility] Hematocrit 42.0 35.0 - 47.0 % LAB HEMETOLOGY METHOD 09/11/2024 11:34 AM [facility] MCV 85.2 79.0 - 98.0 FL LAB HEMETOLOGY METHOD 09/11/2024 11:34 AM [facility] MCH 26.8(L) 27.0 - 32.0 pcg LAB HEMETOLOGY METHOD 09/11/2024 11:34 AM [facility] MCHC 31.4(L) 32.0 - 37.0 g/dL LAB HEMETOLOGY METHOD 09/11/2024 11:34 AM [facility] RDW 14.1 11.0 - 15.0 % LAB HEMETOLOGY METHOD 09/11/2024 11:34 AM [facility] Platelets 233 130 - 400 K/mcL LAB HEMETOLOGY METHOD 09/11/2024 11:34 AM [facility] MPV 11.8(H) 7.0 - 11.0 FL LAB HEMETOLOGY METHOD 09/11/2024 11:34 AM [facility] NRBC 0.0 <1.0 % LAB HEMETOLOGY METHOD 09/11/2024 11:34 AM [facility] NRBC Absolute 0.00 <0.10 K/mcL LAB HEMETOLOGY METHOD 09/11/2024 11:34 AM [facility] Neutrophils Relative 64.8 % LAB HEMETOLOGY METHOD 09/11/2024 11:34 AM [facility] Lymphocytes Relative 26.5 % LAB HEMETOLOGY METHOD 09/11/2024 11:34 AM [facility] Monocytes Relative 6.7 % LAB HEMETOLOGY METHOD 09/11/2024 11:34 AM [facility] Eosinophils Relative 1.4 % LAB HEMETOLOGY METHOD 09/11/2024 11:34 AM [facility] Basophils Relative 0.3 % LAB HEMETOLOGY METHOD 09/11/2024 11:34 AM [facility] Immature Granulocytes Relative 0.3 % LAB HEMETOLOGY METHOD 09/11/2024 11:34 AM [facility] Neutrophils Absolute 5.00 1.50 - 7.00 K/mcL LAB HEMETOLOGY METHOD 09/11/2024 11:34 AM [facility] Lymphocytes Absolute 2.04 1.00 - 5.00 K/mcL LAB HEMETOLOGY METHOD 09/11/2024 11:34 AM [facility] Monocytes Absolute 0.52 0.20 - 1.00 K/mcL LAB HEMETOLOGY METHOD 09/11/2024 11:34 AM [facility] Eosinophils Absolute 0.11 0.00 - 0.50 K/mcL LAB HEMETOLOGY METHOD 09/11/2024 11:34 AM [facility] Basophils Absolute 0.02 0.00 - 0.20 K/mcL LAB HEMETOLOGY METHOD 09/11/2024 11:34 AM [facility] Immature Granulocytes Absolute 0.02 0.00 - 0.03 K/mcL LAB HEMETOLOGY METHOD 09/11/2024 11:34 AM [facility] Blood Venous blood specimen / Unknown Venipuncture / Unknown 09/11/2024 10:20 AM EDT 09/11/2024 11:21 AM EDT us Damian Aviles MD LAB BLOOD ORDERABLES Final Resu lt Performing Organization Address City/[facility]/ZIP Co de Phone Number [facility] [address] [place] [address], [place] [phone] * Lipase (09/11/2024 10:20 AM EDT) [facility] Lipase 34 13 - 75 unit/L LAB CHEMISTRY METHOD 09/11/2024 11:53 AM EDT [facility] Blood Venous blood specimen / Unknown Venipuncture / Unknown 09/11/2024 10:20 AM EDT 09/11/2024 11:21 AM EDT us Damian Aviles MD LAB BLOOD ORDERABLES Final Resu lt Performing Organization Address City/[facility]/ZIP Co de Phone Number [facility] [address] [place] [address], [place] [phone] * (ABNORMAL) Comprehensive metabolic panel (09/11/2024 10:20 AM EDT) [facility] Sodium 136 133 - 145 mmol/L LAB CHEMISTRY METHOD 09/11/2024 11:56 AM [facility] Potassium 4.0 3.5 - 5.5 mmol/L LAB CHEMISTRY METHOD 09/11/2024 11:56 [facility] Chloride 101 96 - 110 mmol/L LAB CHEMISTRY METHOD 09/11/2024 11:56 AM [facility] CO2 30 21 - 32 mmol/L LAB CHEMISTRY METHOD 09/11/2024 11:56 AM [facility] Anion Gap 5 3 - 11 LAB CHEMISTRY METHOD 09/11/2024 11:56 AM [facility] Glucose 113(H) 70 - 100 mg/dL LAB CHEMISTRY METHOD 09/11/2024 11:56 AM [facility] BUN 14 5 - 25 mg/dL LAB CHEMISTRY METHOD 09/11/2024 11:56 AM [facility] Creatinine 0.90 0.50 - 1.10 mg/dL LAB CHEMISTRY METHOD 09/11/2024 11:56 AM [facility] eGFR 77 >=60 mL/min/1. 73m2 LAB CHEMISTRY METHOD 09/11/2024 11:56 AM [facility] Comment:Calculation based on the??Chronic Kidney Disease Epidemiology Collaboration (CKD-EPI) equation refit??without adjustment for race. BUN/Creatinine Ratio 15.6 LAB CHEMISTRY METHOD 09/11/2024 11:56 AM [facility] Calcium 9.7 8.5 - 10.5 mg/dL LAB CHEMISTRY METHOD 09/11/2024 11:56 AM [facility] AST (SGOT) 16 10 - 42 unit/L LAB CHEMISTRY METHOD 09/11/2024 11:56 AM [facility] ALT (SGPT) 29 10 - 60 unit/L LAB CHEMISTRY METHOD 09/11/2024 11:56 AM [facility] Alkaline Phosphatase 102 42 - 121 unit/L LAB CHEMISTRY METHOD 09/11/2024 11:56 AM [facility] Total Protein 7.4 6.0 - 8.0 g/dL LAB CHEMISTRY METHOD 09/11/2024 11:56 AM [facility] Albumin 3.8 3.2 - 5.0 g/dL LAB CHEMISTRY METHOD 09/11/2024 11:56 AM [facility] Total Bilirubin 0.5 0.0 - 1.4 mg/dL LAB CHEMISTRY METHOD 09/11/2024 11:56 AM [facility] Blood Venous blood specimen / Unknown Venipuncture / Unknown 09/11/2024 10:20 AM EDT 09/11/2024 11:21 AM EDT us Damian Aviles MD LAB BLOOD ORDERABLES Final Resu lt [facility] ([facility] [address] [place] [address], [place] [phone] from Last 3 Months Insurance MEDICAID - [place] Care Teams Data Warehouse Manager Relationship Specialty Start Date End Date Kayleen Arango MD [address] [place] [address] PCP - General 07/05/14
== END 2024-10-15 09:29 | disposition home or self-care (01) ==
LOC: HO.ENCR 08:40
PROVIDERS: PCP Student in an Organized Health Care Education/Training Program; Visit Provider Student in an Organized Health Care Education/Training Program
DX: E11.42 Type 2 diabetes mellitus with diabetic polyneuropathy (principal); E66.01 Morbid (severe) obesity due to excess calories; Z68.41 Body mass index [BMI] 40.0-44.9, adult; E78.2 Mixed hyperlipidemia; I10 Essential (primary) hypertension; K76.0 Fatty (change of) liver, not elsewhere classified
CPT/HCPCS: 99214

== ENCOUNTER → 2024-10-15 08:39 | Outpatient (BNVA) | payer MEDICAID, SELFPAY | PROVIDERS: PCP Student in an Organized Health Care Education/Training Program; Visit Provider Student in an Organized Health Care Education/Training Program | DX: E11.42 Type 2 diabetes mellitus with diabetic polyneuropathy (principal); E78.2 Mixed hyperlipidemia; E66.01 Morbid (severe) obesity due to excess calories; I10 Essential (primary) hypertension; K76.0 Fatty (change of) liver, not elsewhere classified; Z68.42 Body mass index [BMI] 45.0-49.9, adult | CPT/HCPCS: 82947; 99212 ==

== ENCOUNTER 2025-01-14 12:37 | Outpatient (AMB) | payer MEDICAID, SELFPAY ==
[2025-01-14 12:45] VITALS: BP 112/82; PULSE 85; O2SAT 98; BMI 43.3
--- NOTE | 2025-01-14 12:45 | A.OFFVIS_ITS ---
Vital Signs 01/14/25 12:45 Height 5 ft 7 in Weight 276 lb 3.827 oz BMI 43.3 BP 112/82 Blood Pressure Location Lt brachial Position Sitting Pulse 85 Pulse Source Pulse Oximeter Pulse Oximetry (%) 98 Oxygen Delivery Method Room Air Intake Visit Reasons: T2DM Intake Note: Patient present today for Type 2 Diabetes Mellitus Last Diabetic eye exam: Over2 years ago. Patient needs a referral Last Podiatry Visit: Has upcoming appt but unsure of the day Random Glucose: 83 mg/dl HgA1C: 6.0% Business Analyst Ecommerce Required: No Accompanied by: Self / Same As Patient Allergies morphine Allergy (Unknown, Verified 01/14/25 12:50) Anaphylaxis Iodinated Contrast Media (IV Contrast Dye) Allergy (Verified 01/14/25 12:50) Anaphylaxis Medication List - Last Reconciled 01/14/25 by Kaleigh Augustine MD acetaminophen ER 650 mg PO Q8H PRN albuterol sulfate 90 mcg/actuation (Ventolin HFA) 2 puffs inhalation TID PRN carvedilol 12.5 mg PO BID diclofenac sodium 1% 2 grams topical QID ibuprofen 800 mg PO Q8H PRN mometasone 200 mcg/actuation (Asmanex HFA) 1 puff inhalation BID montelukast 10 mg PO QPM semaglutide (Ozempic) 0.5 mg (0.736 mL) subcut QWEEK simvastatin 20 mg PO BEDTIME tiotropium bromide (Spiriva with HandiHaler) 1 cap inhalation DAILY valsartan 160 mg PO BID HPI Comments Details: 53-year-old female coming in today for follow up of type 2 diabetes mellitus Type 2 diabetes mellitus without long-term insulin use Type 2 diabetes mellitus Diagnosed December 2023 Last seen October 2024. Hba1c 7.5 % 202303/30/24 : A1c 7 % 05/28/24: A1c 6.6% 08/26/2024. HgA1C: 6.4% 01/14/25: POC 6.0 % Prior medications tried Metformin caused severe explosive diarrhea and GI intolerance pt could not tolerate Jardiance 10 mg daily stopped in August 2024 due to yeast and urine infections x2 Was on Trulicity 0.75 mg weekly which caused explosive diarrhea, 5-6 stools per day, abdominal pain, unable to tolerate along with severe headaches Interval history Had another flare of asthma, was on prednisone 40 mg for 5 days last week, finished now Current Medications Now on Ozempic 0.5 mg weekly (0.25 mg weekly started September 2024, tolerating that well. Increase to 0.5 mg weekly October 2024.) SMBGs: 7 day av 137 14 day abg 138 fastings 110 s to 130s, was 140s last week when she was on prednsione Never hospitalised for low or high blood sugars Complains of increased urination, increased thirst. Exercise: none Weight BMI 43.3 down from 45 kg/m2 in October 2024 Weight : Lost 11 lbs since October 2024. Saw the supervisor boiler repair. Food : Homemaker Wakes up at 6 or 7 AM Breakfast 9 to 11 AM 4-5 crackers with coffee, with milk and sugar 2 teaspoons Lunch at 1-2 pm : sandwich , very variable Dinner: 5 pm : rice, pasta with veggies with meat Mostly home made meals has eliminated sugary drinks, met with supervisor boiler repair Exercise :manjinder twice a week 1 hr Family history: mother, maternal grandmother, sisters have type 2 DM No history of pancreatitis No family history of medullary thyroid cancer Complications Last Diabetic eye exam:Many years ago , referral entered and she was given the number to call multiple times still has not called Last Podiatry Visit: Has a upcoming appointment in January or February 2025 Eye doctor: none recently, no history of retinopathy, referral was sent and she was given the number to call, still not called Neuropathy: has numbness and tingling in feet since 2 years , podiatry referral placed, patient given number to call No kidney disease No stroke or heart attack Alcohol: none MASLD evaluation FIB 4 index score 1.37 based on labs in May 2024, NAFLD score also at 1.37. Has appointment coming up with GI on in January 2025 EKATERINA/ ARB: On valsartan 160 mg daily, urine microalbumin 193 05/28/24 HLD: On simvastatin 20 mg daily , LDL 87 mg/dl 04/05 Physical exam General: sitting comfortably in bed in no acute distress HEENT: normocephalic/atraumatic, moist oral mucosa Neck: supple, symmetrical, no thyromegaly Cardiac: normal heart sounds Pulm: normal breath sounds B/L, no added breath sounds Abd: not distended, no tenderness Extremities: no edema, no signs of myxedema, no tremors Neuro: AAO x3, Speech: normal, no facial droop, moving all 4 extremities foot exam: 07/24/2024: Skin sloughing noted. Right big toe got injured, and has a broken nail, no left big toe looks like fungal infection. Intact sensation to monofilament, warm and well-perfused, intact pulses Laboratory Tests 12/20/23 12/20/23 03/30/24 08:46 08:48 09:01 Creatinine 0.83 Estimated GFR > 60 Hemoglobin A1c % 7.5 H 7.0 H Triglycerides 138 Cholesterol 145 LDL Cholesterol, Calc 87 HDL Cholesterol 31 L TSH 0.11 L Free T4 1.10 Laboratory Tests 03/30/24 03/30/24 05/28/24 09:01 09:10 09:27 Plt Count 233 Sodium 139 Potassium 4.0 Creatinine 0.80 Estimated GFR > 60 Hemoglobin A1c % 7.0 H 6.6 H Calcium 9.5 AST 26 ALT 18 Triglycerides 138 Cholesterol 145 LDL Cholesterol, Calc 87 HDL Cholesterol 31 L TSH 1.73 Free T4 1.01 Total T3 125 Thyroid Stim Immunoglob <89 Urine Creatinine 133.18 97.57 Urine Microalbumin 145.0 189.0 Microalb/Creat Ratio 108.8 H 193.7 H TSH Receptor Ab <1.00 PFSH Medical History (Updated 07/24/24 @ 10:55 by Kaleigh Augustine MD) Metabolic dysfunction-associated fatty liver disease (MAFLD) HTN (hypertension) HLD (hyperlipidemia) Obesity Diabetes mellitus Subclinical hyperthyroidism Surgical History History of laparoscopic appendectomy H/O tubal ligation Family History Mother Hypertension Thyroid crisis High cholesterol Father Heart problem Social History Alcohol intake: never Patient Tobacco Use Status: Never used Tobacco Physical Exam Vital Signs: Last Vital Signs Pulse 85 01/14/25 12:45 BP 112/82 01/14/25 12:45 Pulse Ox 98 01/14/25 12:45 Oxygen Delivery Method Room Air 01/14/25 12:45 BMI result Body Mass Index 43.3 Results AMB Hemoglobin A1c AMB Hemoglobin A1c 6.0 % Last Edit by CLAYTON Meyer on 01/14/25 13:02 Results Reviewed Results Reviewed: Laboratory Last Values Glucose (Clinic) 83 mg/dL (60-115) 01/14/25 12:53 Assessment & Plan Assessment & Plan (1) Diabetes mellitus: Code(s): E11.9 - Type 2 diabetes mellitus without complications Category: Medical Qualifiers: Diabetes mellitus type: type 2 Diabetes mellitus laborer marine terminal insulin use: without laborer marine terminal use Diabetes mellitus complication status: with neurologic complications Diabetes mellitus complication detail: with polyneuropathy Qualified Code(s): E11.42 - Type 2 diabetes mellitus with diabetic polyneuropathy Plan: Patient with new onset of diabetes in December 2023, with no insulin use, complication of neuropathy. A. Last HBA1c point of care today 01/14/2025 at 6% down from 08/26/2024 at 6.4% . She is still having elevated fasting readings in the 120s and 130s, I will go up on the Ozempic. Previously She could not tolerate metformin which was initiated at the time of her diagnosis due to explosive diarrhea, we had her on Jardiance up until August 2024 however she has had her 2nd UTI on it and now Jardiance has been stopped. Could not tolerate Trulicity due to explosive diarrhea and severe headaches, now back on Ozempic which she is tolerating well. E: Last visit with greens picker : No recent visit. No diabetic retinopathy. Ophthalmology referral placed last visit, patient never heard from them, I also gave her the number last visit to call the clinic., patient counseled to see eye doctor. She is still has not called. Again emphasized today. F: From January visit: Foot care is suboptimal, skin sloughing noted. Intact sensation to monofilament. Advised about regular foot daily in the morning. Has a upcoming appointment. G: eGFR >December and microalbumin/Cr ratio 108: From March 2024. Plan: -increase Ozempic to 1 mg weekly -continue monitoring fasting blood sugars -ophthalmology referral in place, number given -podiatry referral placed , pending appointment -lifestyle modification discussed again with 30 minutes of exercise daily., she is already doing a good job with activity. -follow up in 6 months (2) Obesity: Code(s): E66.9 - Obesity, unspecified Category: Medical Qualifiers: Obesity type: due to excess calories Obesity classification: adult class 3 (BMI >= 40) Serious obesity comorbidity presence: with serious comorbidity Body mass index: BMI 40.0-44.9 Qualified Code(s): E66.01 - Morbid (severe) obesity due to excess calories; Z68.41 - Body mass index [BMI] 40.0- 44.9, adult Plan: BMI 43.3 kg per m2 , 276 lb down from October 2024 45 kg per m2. 287 lb. She would be a candidate for bariatric surgery. I discussed this with her today, however she is not interested in surgery at this time. She would like to hawk marquise on medical management. Plan: -lifestyle modification discussed l -follow up with supervisor boiler repair -increase Ozempic to 1 mg weekly (3) HLD (hyperlipidemia): Code(s): E78.5 - Hyperlipidemia, unspecified Category: Medical Qualifiers: Hyperlipidemia type: mixed hyperlipidemia Qualified Code(s): E78.2 - Mixed hyperlipidemia Plan: Most recent LDL from March 2024 down to 87 mg/dL since she has started the simvastatin again. Also noted to have elevated triglycerides and total cholesterol. She was not taking her simvastatin regularly before and just started in January 03. Plan: -continue taking simvastatin -Her FIb 4 index came back at 1.37 : Concern for metabolic associated dysfunction liver disease, referred to GI for assessment for fibrosis, pending appointment on January 2025 -increase Ozempic to 1 mg weekly injection (4) HTN (hypertension): Code(s): I10 - Essential (primary) hypertension Category: Medical Qualifiers: Hypertension type: primary hypertension Qualified Code(s): I10 - Essential (primary) hypertension Plan: Blood pressure at goal. Plan: -continue valsartan 160 mg daily and carvedilol 12.5 mg BID (5) Metabolic dysfunction-associated fatty liver disease (MAFLD): Code(s): K76.0 - Fatty (change of) liver, not elsewhere classified Category: Medical Plan: On Ozempic -Lifestyle modification advised with 30 minutes of exercise daily, cutting out trans saturated and polysaccharide it fats Fifty-four index score 1.37, NAFLD score also 1.37, referred to GI for evaluation of liver fibrosis, pending appointment January 2025 Increase Ozempic to 1 mg weekly Plan I spent 30 minutes in reviewing the record, seeing the patient and documenting in the medical record. Orders: Orders Lipid Panel 5 Months E11.42 - Type 2 diabetes mellitus with diabetic polyneuropathy Hemoglobin A1c 5 Months E11.42 - Type 2 diabetes mellitus with diabetic polyneuropathy Microalbumin, Random (w Creat) 5 Months E11.42 - Type 2 diabetes mellitus with diabetic polyneuropathy AMB Hemoglobin A1c Today .42 - Type 2 diabetes mellitus with diabetic polyneuropathy, Z13.9 - Encounter for screening, unspecified Complete Blood Count no Diff 5 Months .42 - Type 2 diabetes mellitus with diabetic polyneuropathy Creatinine 5 Months E11.42 - Type 2 diabetes mellitus with diabetic polyneuropathy Medications: New semaglutide (Ozempic) 1 mg (0.75 mL) subcut QWEEK 3 mL 7RF Discontinued semaglutide (Ozempic) Discontinued Reason: Duplicate 0.5 mg (0.736 mL) subcut QWEEK 3 mL 4RF Patient Instructions: Increase OZempic to 1 mg weekly injection See eye doctor Continue to monitor blood sugars Follow up in July 2025 Do fasting blood work and urine test before next visit Coding Level of Care Code Est Pt Level 4 (95623) Complex EM visit Add On G2211 Diagnoses Type 2 diabetes mellitus with diabetic polyneuropathy, without long-term current use of insulin Diabetes mellitus type: type 2 Diabetes mellitus skilled nursing insulin use: without laborer marine terminal use Diabetes mellitus complication status: with neurologic complications Diabetes mellitus complication detail: with polyneuropathy Class 3 severe obesity due to excess calories with serious comorbidity and body mass index (BMI) of 40.0 to 44.9 in adult E66.01; Z68.41 Obesity type: due to excess calories Obesity classification: adult class 3 (BMI >= 40) Serious obesity comorbidity presence: with serious comorbidity Body mass index: BMI 40.0-44.9 Mixed hyperlipidemia E78.2 Hyperlipidemia type: mixed hyperlipidemia Primary hypertension I10 Hypertension type: primary hypertension Metabolic dysfunction-associated fatty liver disease (MAFLD) K76.0 Time Spent (min) 30
[2025-01-14 12:57] LABS: Glucose, Whole Blood 83 mg/dL (60-115)
--- OUTSIDE RECORDS SUMMARY | 2025-01-14 13:54 | XMS_ITS | Encounter Summary ---
Author Organization [employer] Address [address] [facility] [address] [place] [address] Care Team Providers Care Sand Conditioner Name Role Phone Kayleen Arango MD Primary Care Provider [phone] Reason for Visit * Reason Comments Med Refill Encounter Details Date Type Department Care Team ([facility] Contact Info) Description 01/14/2025 Refill [facility] [address] [place], [place] [phone] Michaela Ridley MD [address] [place] [address] New onset type 2 diabetes mellitus (CMS/HCC) [...] documented as of this encounter Care Teams Sand Conditioner Relationship Specialty Start Date End Date Kayleen Arango MD [address] [place] [id number] PCP - General Family Medicine 06/23/13 documented as of this encounter
--- OUTSIDE RECORDS SUMMARY | 2025-01-14 13:54 | XMS_ITS | Encounter Summary ---
Author Organization [employer] Address [address] [facility] [address] [place] [address] Care Team Providers Care General Office Dispatcher Name Role Phone Kayleen Arango MD Primary Care Provider [phone] Encounter Details Date Type Department Care Team ([facility] Contact Info) Description 01/14/2025 Orders Only GENERIC EXTERNAL DATA DEPARTMENT Provider, [...] Associated Diagnosis Comments GLUCOSE, WHOLE BLOOD Routine 01/14/2025 12:53 PM EDT documented in this encounter Results * Glucose, Whole Blood (01/14/2025 12:53 PM EDT) Glucose, Whole Blood 83 60 - 115 mg/dL [facility] Comment:METER #: [id number] Testing performed in the Endocrinology Department [address] , [address], [facility]. 01/14/2025 12:5 3 PM EDT 01/14/2025 12:56 PM EDT us Generic External Data Provider LAB BLOOD ORDERAB LES Final Result [facility] [address] [place] [phone] documented in this encounter Visit Diagnoses Not on filedocumented in this encounter Additional Health Concerns Assessment Noted Time PHQ-9 Depression Total Score: 0 12/20/19 23 9:29 AM EDT documented as of this encounter Care Teams General Office Dispatcher Relationship Specialty Start Date End Date Kayleen Arango MD [address] [place] [phone] PCP - General Family Medicine 06/23/13 documented as of this encounter
--- OUTSIDE RECORDS SUMMARY | 2025-01-14 13:54 | XMS_ITS | Clinical Summary ---
Author Organization [facility] Address [address] [address] Phone Care Team Providers Care Dry Ice Maker Name Role Phone Unavailable Primary Care Provider Unavailabl e Social History Tobacco Use Types Packs/Day Years Used Date Smoking Tobacco: Never Assessed Education Answer Date Recorded Are you interested in more education? Not on harsh e 09/07/2022 Are you concerned about learning? Not on file 09/07/2022 No 09/07/2022 No 09/07/2022 Digital Access Answer Date Recorded No 10/08/2022 No 10/08/2022 No 10/08/2022 Reliable internet access at home? Not on file 10/08/2022 Device with a working camera? Not on file Comments Unknown Sex and Gender Information Value Date Recorded Sex Assigned at Not on file Legal Sex Female 10:31 PM EDT Gender Identity Not on file Sexual Orientation Not on file Plan of Treatment Not on file Medical Devices Not on file Insurance [employer] ACO C3 ACO C3 ACO C3 ACO C3 ACO C3 ACO [facility] C3 ACO Additional Source Comments The information contained in this document represents components of the legal health record. It is not the complete legal health record.[facility]
--- OUTSIDE RECORDS SUMMARY | 2025-01-14 13:55 | XMS_ITS | Encounter Summary ---
Author Organization [employer] Address [address] [facility] 7[address] [place] [address] Care Team Providers Care Telecommunications Technician Name Role Phone Kayleen Arango MD Primary Care Provider [phone] Encounter Details Date Type Department Care Team ([facility] Contact Info) Description 09/11/2024 Orders Only [facility] [address] [place] [address] Provider, MD [place] Social History Tobacco Use [...] documented as of this encounter Care Teams Telecommunications Technician Relationship Specialty Start Date End Date Kayleen Arango MD [address] [place] [phone] PCP - General Family Medicine 06/23/13 documented as of this encounter
--- OUTSIDE RECORDS SUMMARY | 2025-01-14 13:55 | XMS_ITS | Encounter Summary ---
Author Organization [employer] Address [address] [facility] 7t [place] [address] Care Team Providers Care Skip Hoist Engineer Name Role Phone Kayleen Arango MD Primary Care Provider [phone] Reason for Visit * Reason Onset Date Comments Nurse Triage 12/31/2023 Encounter Details Date Type Department Care Team ([facility] st Contact Info) Description 12/31/[address] [facility] [address] [place] [address] Kayleen Arango MD [address] [place] [address] Nurse Triage Social History Tobacco Use Types [...] past 12 months, has t he electric, [employer], [employer] or water [employer] threatened to shut off services in your [...] documented as of this encounter Care Teams Skip Hoist Engineer Relationship Specialty Start Date End Date Kayleen Arango MD [address] [place] [phone] PCP - General Family Medicine 06/23/13 documented as of this encounter
--- OUTSIDE RECORDS SUMMARY | 2025-01-14 13:55 | XMS_ITS | Clinical Summary ---
Author Organization [employer] Address [address] [facility] 7t [place] [address] Care Team Providers Care Shell Shop Supervisor Name Role Phone Kayleen Arango MD Primary Care Provider [phone] Allergies Active Allergy Reactions Criticality Noted Date Comments Iodinated Contrast Media Syncope High 09/18/2023 Hypotension, v/d Morphine Shortness of breath High 05/18/2013 Medications cholecalciferol (Vitamin D-3) 25 MCG (1000 UT) tabletIndication s:Vitamin D deficiency Take 1 tablet (25 mcg) by mouth in the morning. 30 tablet 04/23/20 22 Active valsartan-hydroC HLOROthiazide (Diovan-HCT) 80-12.5 MG tablet TAKE 1 TABLET [...] daily. 90 tablet 11 12/20/19 23 Active baclofen (Lioresal) 10 MG tablet Take one tablet TID PRN 30 tablet 09/18/19 24 Active Blood Glucose Monitoring Suppl (FreeStyle Robbins Lite) w/Device kitIndications:N ew onset type 2 diabetes mellitus (CMS/HCC) Use to test blood sugar 2 times daily 1 kit 12/24/19 24 Active Alcohol Swabs 70 % padsIndications: New onset type 2 diabetes mellitus (CMS/HCC) Use to test blood sugar 2 times daily 100 each 11 12/24/19 24 Active Diclofenac Sodium 1 % gel TAKE 2 GRAMS (TOPICAL) 4 TIMES PER DAY FOR 10 DAYS 100 g 01/09/20 24 Active Semaglutide-Weig ht Management (Wegovy) 0.25 MG/0.5ML solution auto-injector Inject 0.25 mg under the skin 1 (one) time per week. 0.5 mL 3 03/04/20 24 Active FreeStyle lancetsIndicatio ns:New onset type 2 diabetes mellitus (CMS/HCC) USE 1 LANCET DIRECTED TWICE A DAY 100 each 5 06/04/19 25 Active omeprazole (PriLOSEC) [address] capsule TAKE 1 CAPSULE BY MOUTH EVERY DAY 90 capsule 3 07/24/19 25 Active lidocaine (Lidoderm) 5 % patch Apply 1 patch topically Once per day. Remove & discard patch within 12 hours or as directed by MD. 30 patch 2 09/10/19 25 026 Active tiZANidine (Zanaflex) 2 MG tablet Take 1 tablet (2 mg) by mouth every 8 (eight) hours if needed (pain). May cause drowsiness 30 tablet 09/10/19 25 Active simvastatin (Zocor) 20 MG tablet TAKE 1 TABLET BY MOUTH AT BEDTIME 90 tablet 3 11/07/19 25 Active lidocaine (Lidoderm) 5 % patchIndications :Acute left-sided low back pain with left-sided sciatica Apply 1 patch topically Once per day. Remove & discard patch within 12 hours or as directed by MD. 30 patch 1 11/18/19 25 Active cyclobenzaprine (Flexeril) 10 MG tablet Take 1 tablet (10 mg) by mouth at bedtime for 10 days. 10 tablet 12/02/19 25 Active meloxicam (Mobic) 7.5 MG tablet Take 1 tablet (7.5 mg) by mouth Once per day. 30 tablet 11 12/02/19 25 026 Active Asmanex HFA 200 MCG/ACT aerosol TAKE 1 PUFF BY MOUTH TWICE A DAY (*2 MONTH SUPPLY*) 13 g 2 12/16/19 25 Active acetaminophen (Tylenol 8 Hour) 650 MG ER tabletIndication s:Chronic bilateral thoracic back pain TAKE 1 TAB BY MOUTH EVERY 8 HOURS IF NEEDED FOR MILD PAIN FOR UP TO 10 DAYS DONT CRUSH, CHEW OR SPIT 90 tablet 3 12/16/19 25 Active ibuprofen 800 MG tablet TAKE 1 TABLET BY MOUTH EVERY 8 HOURS NEEDED FOR FEVER OR MODERATE PAIN 30 tablet 12/16/19 25 Active metFORMIN (Glucophage) 500 MG tablet TAKE 1 TABLET BY MOUTH WITH BREAKFAST AND EVENING MEAL 180 tablet 12/23/19 25 Active Jardiance 10 MG TAKE 1 TABLET BY MOUTH EVERY DAY 30 tablet 11 01/07/20 25 Active meloxicam (Mobic) 7.5 MG tablet Take 1 tablet (7.5 mg) by mouth 2 times daily. 60 tablet 11 12/16/19 24 025 metFORMIN (Glucophage) 500 MG tablet Take 1 tablet (500 mg) by mouth with breakfast and with evening meal. 60 tablet 11 12/18/19 24 025 Discontinued empagliflozin (Jardiance) 10 MG Take 1 tablet (10 mg) by mouth Once per day. 30 tablet 12/24/19 24 025 Discontinued FREESTYLE LITE test stripIndications :New onset type 2 diabetes mellitus ([facility]) Use to test blood sugar 2 times daily 100 each 12 12/24/19 24 025 predniSONE (Deltasone) 20 MG tabletIndication s:Acute severe exacerbation of moderate persistent asthma Take 2 tablets (40 mg) by mouth Once per day for 5 days. 10 tablet 01/05/20 25 025 Active Problems Problem Noted Date Diagnosed Date Acute left-sided low back pain with left-sided s ciatica 11/17/2024 Assessment & Plan (11/17/2024 12:02 PM EDT): Apply heat on affected area I will refer her to PT Today Toradol 30mg IM do not take meloxicam today she may re-start it tomorrow Lidocaine patch on affected area Robaxin 500mg Q 6hrs if needed (patient is aware of side effect somnolence) Type 2 diabetes mellitus wit hout complication, [...] Encounters Date Type Department Care Team Description 01/14/2025 Orders Only GENERIC EXTERNAL DATA DEPARTMENT Provider, Generic External Data 01/14/2025 Refill [facility] [address] [place] [address] Michaela Ridley MD New onset type 2 diabetes mellitus (CMS/HCC) 01/05/2025 Refill [facility] [address] [place] [address] Michaela Ridley MD 01/04/2025 1:20 PM EDT Office Visit [facility] [address] [place] [address] Shikha Khan MD Acute severe exacerbation of moderate persistent asthma (Primary Dx); Viral URI 01/04/2025 Travel 12/20/2024 Refill [facility] [address] [place] [address] Kayleen Arango MD 12/13/2024 Refill [facility] [address] [place] [address] Kayleen Arango MD Chronic bilateral thoracic back pain 12/01/2024 8:30 AM EDT Office Visit [facility] [address] [place] [address] Kayleen Arango MD Left hip pain (Primary Dx); Type 2 diabetes mellitus without complication, without long-term current use of insulin (CMS/HCC); Primary hypertension 12/01/2024 Travel 11/30/2024 Telephone [facility] [address] [place] [address] Kayleen Arango MD Chart Prep 11/23/2024 Patient Outreach [facility] [address] [place] [phone] Diane Torres Pre-visit Planning (Pre visit planning LVM ) 11/19/2024 Telephone [facility] [address] [place] [address] Kayleen Arango MD Nurse Triage 11/17/2024 9:40 AM EDT Office Visit [facility] [address] [place] [address] Tamiko Barrera MD Acute left-sided low back pain with left-sided sciatica 11/17/2024 Travel 11/05/2024 Refill [facility] [address] [place] [address] Michaela Ridley MD 10/15/2024 Orders Only GENERIC EXTERNAL DATA DEPARTMENT Provider, Generic External Data from Last 3 Months Immunizations Immunization Administration [...] Sign Reading Time Taken Comments Blood Pressure 150/96 01/04/2025 12:57 PM EDT Pulse 83 01/04/2025 12:57 PM EDT Temperature 36.4 C (97.5 F) 01/04/2025 12:57 PM EDT Respiratory Rate 20 01/04/2025 12:57 PM EDT Oxygen Saturation 97% 01/04/2025 12:57 PM EDT Inhaled Oxygen Concentration - - Weight 126 kg (278 lb) 01/04/2025 12:57 PM EDT Height 170.2 cm (5' 7 ) 12/01/2024 9:18 AM EDT Body Mass Index 43.54 12/01/2024 9:18 AM EDT Plan of Treatment Health Maintenance [...] 12/20/2023 12/19/2022, 12/20/19 SDOH Screening 12/20/2023 12/19/2022 Lipid Panel 12/16/2024 12/17/2023, 0508/2023, 04/20/2021, Additional history exists COVID-19 Vaccine ( season) 2025 05/09/2023, 11/26/2021, 02/14/2021, Additional history exists Influenza Vaccine (#1) 2025 Diabetes: Hemoglobin A1C 06/03/2025 025, 08/26/2024, 12/20/2023 Tobacco Screening 01/04/2026 01/04/2025 DTaP/Tdap/Td Vaccines (2 - Td or Tdap) [...] WHOLE BLOOD Routine 01/14/2025 12:53 PM EDT POCT INFLUENZA A (ID NOW RAPID MOLECULAR) Routine 01/04/2025 1:13 PM EDT Viral URI POCT INFLUENZA B (ID NOW RAPID MOLECULAR) Routine 01/04/2025 1:13 PM EDT Viral URI POCT RAPID COVID ANTIGEN Routine 01/04/2025 1:13 PM EDT Viral URI POCT GLYCATED HEMOGLOBIN, TOTAL Routine 12/01/2024 9:28 AM EDT Type 2 diabetes mellitus without complication, without long-term current use of insulin ([facility]) POCT GLUCOSE Routine 12/01/2024 9:27 AM EDT Type 2 diabetes mellitus without complication, without long-term current use of insulin ([facility]) GLUCOSE, WHOLE BLOOD Routine 10/15/2024 8:52 AM EDT LIPID PANEL, STANDARD Routine 12/17/2023 8:55 AM EDT Primary hypertension BI MAMMOGRAM DIAGNOSTIC BILATERAL Routine 09/16/2019 10:49 AM EDT from Last 3 Months or Most Recently Relevant to Health Maintenance Results * Glucose, Whole Blood (01/14/2025 12:53 PM EDT) Only the most recent of2 resultswithin the time period is included. Glucose, Whole Blood 83 60 - 115 mg/dL [facility] Comment:METER #: [id number] Testing performed in the Endocrinology Department [address] , [address], [facility]. 01/14/2025 12:5 3 PM EDT 01/14/2025 12:56 PM EDT us Generic External Data Provider LAB BLOOD ORDERAB LES Final Result [facility] [address] [place] [phone] * Influenza B (ID NOW Rapid Molecular) (01/04/2025 1:13 PM EDT) [facility] Influenza B Negative Negative, Indeterminate [facility] Swab 01/04/2025 1:13 PM EDT Shikha Khan MD POINT OF CARE TEST ENTER/EDIT ORDERABLES Final Result Performing Organization Address [facility] Co de Phone Number [facility] [address] [place] [phone] * Influenza A (ID NOW Rapid Molecular) (01/04/2025 1:13 PM EDT) [facility] Influenza A Negative Negative, Indeterminate [facility] Swab 01/04/2025 1:13 PM EDT Shikha Khan MD POINT OF CARE TEST ENTER/EDIT ORDERABLES Final Result Performing Organization Address [facility] Co de Phone Number [facility] [address] [place] [phone] * POCT Rapid COVID Ag (01/04/2025 1:13 PM EDT) [facility] Rapid COVID Ag Negative [facility] Swab 01/04/2025 1:13 PM EDT Shikha Khan MD POINT OF CARE TEST ENTER/EDIT ORDERABLES Final Result Performing Organization Address [facility] Co de Phone Number [facility] [address] [place] [phone] * (ABNORMAL) POCT A1C (12/01/2024 9:28 AM EDT) [facility] Hemoglobin A1C 5.8(A) 4.0 - 5.7 % QC Media Lot # Comment:[id number] Lot# Expiration Date Comment:07/21/2026 Blood 12/01/2024 9:28 AM EDT Kayleen Arango MD POINT OF CARE TEST ENTER/EDIT OR DERABLES Final Result * POCT glucose manually resulted (12/01/2024 9:27 AM EDT) Glucose Blood, POC 132 60 - 200 mg/dL QC Media Lot # Comment:[id number] Lot# Expiration Date Comment:03/11/2025 Blood Capillary blood specimen / Unknown 12/01/2024 9:27 AM EDT Kayleen Arango MD POINT OF CARE TEST ENTER/EDIT OR DERABLES Final Result * (ABNORMAL) Lipid Panel, Standard (12/17/2023 8:55 AM EDT) Triglycerides 200(H) <150 mg/dL [facility] Comment:Desirable Triglyceri de: less than 150 mg/dLBorderline High Triglyceride 150-199 mg/dLHigh Triglyceride: 200-499 mg/dLVery High Triglyceride: greater than or equal to 5OO mg/dL Cholesterol 226(H) <200 mg/dL [facility] Comment:Desirable Cholestero l: less than 200 mg/dLBorderline High Cholesterol: 200-239 mg/dLHigh Cholesterol: greater than 239 mg/dL LDL Cholesterol Calculated 148(H) <100 mg/dL [facility] Comment:Desirable LDL: less than 100 mg/dLNear Optimal/Above Optimal LDL: 110- 129 mg/dLBorderline High LDL: 130-159 mg/dLHigh LDL: 160-189 mg/dLVery High LDL: greater than or equal to 190 mg/dL HDL Cholesterol 38(L) >40 mg/dL [facility] Comment:Desirable HDL: great er than 40 mg/dL Note: This HDL assay may give artificially low results in patients with liver disease. Blood Venous blood specimen / Unknown 12/17/2023 8:55 AM EDT 12/17/2023 2:02 PM EDT Kayleen Arango MD LAB BLOOD ORDERABLES Final Resul t [facility] [address] [place] [phone] * 3D BILATERAL DIAGN MAMMO 1 [...] Most Recently Relevant to Health Maintenance [place] [place] [address] C3 Care Teams Shell Shop Supervisor Relationship Specialty Start Date End Date Kayleen Arango MD [address] [place] [phone] PCP - General Family Medicine 06/23/13
--- OUTSIDE RECORDS SUMMARY | 2025-01-14 13:55 | XMS_ITS | Encounter Summary ---
Author Organization [employer] Address [address] [facility] 7t [place] [address] Care Team Providers Care Driver/Guide Name Role Phone Kayleen Arango MD Primary Care Provider [phone] Reason for Visit * Reason Onset Date Comments Appointment Request 06/27/2023 Encounter Details Date Type Department Care Team ([facility] Contact Info) Description 06/27/2023 Telephone [facility] [address] [place], [place] [phone] Kayleen Arango MD [address] [place] [address] Appointment Request Social History Tobacco Use Types [...] her current diagnostics. Please contact pt @ [phone] Portuguese Speaker documented in this encounter Plan of Treatment Not on file documented as of this encounter Visit Diagnoses Not on filedocumented in this encounter Additional Health Concerns Assessment Noted Time PHQ-9 Depression Total Score: 0 12/20/19 23 9:29 AM EDT documented as of this encounter Care Teams Driver/Guide Relationship Specialty Start Date End Date Kayleen Arango MD [address] [place] [phone] PCP - General Family Medicine 06/23/13 documented as of this encounter
--- OUTSIDE RECORDS SUMMARY | 2025-01-14 13:55 | XMS_ITS | Encounter Summary ---
Author Organization [facility] Address [address] [facility] [address] [place] [phone] Phone Care Team Providers Care Manufacturing Manager Name Role Phone Unavailable Primary Care Provider Unavailabl e Encounter Details Date Type Department Care Team (Late st Contact Info) Description 11/05/2019 Ancillary Orders [facility] [address] [place] [address] [place] [address] Jon Lindo, [address] [address] Palpitations Social History Tobacco Use Types Packs/Day Years Used Date Smoking Tobacco: Never Assessed Comments Unknown Sex and Gender Information Value Date Recorded Sex Assigned at Not on file Legal Sex Female 10:31 PM EDT Gender Identity Not on file Sexual Orientation Not on file documented as of this encounter Plan of Treatment Not on file documented as of this encounter Results * Holter Monitor 24 Hours (11/05/2019 3:30 PM EDT) Anatomical Region Laterality Modality Heart Other Narrative 11/05/2019 3:44 PM EDT 4-hour monitor: Baseline rhythm is sinus. The minimum heart rate is 49, maximum 121, average 75 bpm. There are no long pauses present. Rare PACs and PVCs present. There is no diary returned. There are no patient event markers. Impression: Normal 24-hour monitor. No diary returned. No patient event markers present. Procedure Note Kashif Hirsch MD - 11/05/2019 4-hour monitor: Baseline rhythm is sinus. The minimum heart rate is 49,maximum 121, average 75 bpm. There are no long pauses present. Rare PACsand PVCs present. There is no diary returned. There are no patient eventmarkers. Impression: Normal 24-hour monitor. No diary returned. No patient eventmarkers present. us Jon Lindo DO [facility] ORDERABLE S Final Result documented in this encounter Visit Diagnoses Diagnosis Palpitations Palpitations documented in this encounter Additional Source Comments The information contained in this document represents components of the legal health record. It is not the complete legal health record.[facility]
--- OUTSIDE RECORDS SUMMARY | 2025-01-14 13:55 | XMS_ITS | Clinical Summary ---
Author Organization [facility] Address [address] [place] [phone] Phone Care Team Providers Care Supervisor [employer] Name Role Phone Kayleen Arango MD Primary Care Provider [phone] Allergies Active Allergy Reactions Criticality Noted Date Comments Iodinated Contrast Media Shortness of breath High Morphine Shortness of breath High 09/11/2024 Oxycodone Nausea And Vomiting 09/11/2024 Surgical History Surgery Date Site/Laterality Comments TUBAL LIGATION PROCEDURE: HISTORICAL TUBAL LIGATION Medical History Medical History Date Comments Pleural effusion 09/28/2016 DX:Pleural effu chsae Lung mass 10/04/2016 DX:Lung mass Depression DX:Depression [...] 51 09/11/2024 10:40 AM EDT Temperature 36.5 C (97.7 F) 09/11/2024 10:40 AM EDT Respiratory Rate 18 09/11/2024 10:40 AM EDT [...] Years (1 of 2 - PCV) 1991 Cervical Cancer Screening: Pap Smear 1993 Breast Cancer Screening 09/15/2021 09/16/2019 Colorectal Cancer Screening: Colonoscopy 04/22/2022 HIV Screening 04/22/2022 Hepatitis C Screening 04/22/2022 Social Influencers of Health Screening 04/22/2022 Zoster Vaccines (1 of 2) 2022 COVID-19 Vaccine ( season) 2024 05/09/2023, 11/26/2021, 02/14/2021, Additional history exists Depression Screening 05/13/2024 Diabetes: Annual Urine Albumin-Creatinine Ratio (uACR) 08/19/2024 Diabetes: Blood Sugar Control Test (HGBA1C) 08/19/2024 12/20/2023 Influenza Vaccine (#1) 2025 Diabetes: Annual GFR (Glomerular Filtration Rate) [...] Procedure Name Priority Date/Time Associated Diagnosis Comments COMPREHENSIVE METABOLIC PANEL STAT 09/11/2024 10:20 AM EDT from Last 3 Months or Most Recently Relevant to Health Maintenance Results * (ABNORMAL) Comprehensive metabolic panel (09/11/2024 10:20 AM EDT) Sodium 136 133 - 145 mmol/L LAB CHEMISTRY METHOD 09/11/2024 11:[address] [facility] Potassium 4.0 3.5 - 5.5 mmol/L LAB CHEMISTRY METHOD 09/11/2024 11:[address] [facility] Chloride 101 96 - 110 mmol/L LAB CHEMISTRY METHOD 09/11/2024 11:[address] [facility] CO2 30 21 - 32 mmol/L LAB CHEMISTRY METHOD 09/11/2024 11:[address] [facility] Anion Gap 5 3 - 11 LAB CHEMISTRY METHOD 09/11/2024 11:[address] [facility] Glucose 113(H) 70 - 100 mg/dL LAB CHEMISTRY METHOD 09/11/2024 11:[address] [facility] BUN 14 5 - 25 mg/dL LAB CHEMISTRY METHOD 09/11/2024 11:[address] [facility] Creatinine 0.90 0.50 - 1.10 mg/dL LAB CHEMISTRY METHOD 09/11/2024 11:[address] [facility] eGFR 77 >=60 mL/min/1. 73m2 LAB CHEMISTRY METHOD 09/11/2024 11:[address] [facility] Comment:Calculation based on the Chronic Kidney Disease Epidemiology Collaboration (CKD-EPI) equation refit without adjustment for race. BUN/Creatinine Ratio 15.6 LAB CHEMISTRY METHOD 09/11/2024 11:[address] [facility] Calcium 9.7 8.5 - 10.5 mg/dL LAB CHEMISTRY METHOD 09/11/2024 11:[address] [facility] AST (SGOT) 16 10 - 42 unit/L LAB CHEMISTRY METHOD 09/11/2024 11:[address] [facility] ALT (SGPT) 29 10 - 60 unit/L LAB CHEMISTRY METHOD 09/11/2024 11:[address] [facility] Alkaline Phosphatase 102 42 - 121 unit/L LAB CHEMISTRY METHOD 09/11/2024 11:[address] [facility] Total Protein 7.4 6.0 - 8.0 g/dL LAB CHEMISTRY METHOD 09/11/2024 11:[address] [facility] Albumin 3.8 3.2 - 5.0 g/dL LAB CHEMISTRY METHOD 09/11/2024 11:[address] [facility] Total Bilirubin 0.5 0.0 - 1.4 mg/dL LAB CHEMISTRY METHOD 09/11/2024 11:[address] [facility] Blood Venous blood specimen / Unknown Venipuncture / Unknown 09/11/2024 10:20 AM EDT 09/11/2024 11:21 AM EDT Damian Aviles MD LAB BLOOD ORDERABLES Final Resu lt [facility] [address] [place] [address], from Last 3 Months or Most Recently Relevant to Health Maintenance Insurance MEDICAID - [place] Care Teams Supervisor Commissary Production Relationship Specialty Start Date End Date Kayleen Arango MD [address] [place] [phone] PCP - General 07/05/14
--- OUTSIDE RECORDS SUMMARY | 2025-01-14 13:55 | XMS_ITS | Encounter Summary ---
Author Organization [employer] Address [address] [facility] 7t [place] [address] Care Team Providers Care Paper Bundler Name Role Phone Kayleen Arango MD Primary Care Provider [phone] Reason for Visit * Reason Onset Date Comments Nurse Triage 10/18/2023 Encounter Details Date Type Department Care Team ([facility] st Contact Info) Description 10/18/2023 Telephone [facility] [address] [place] [address] Kayleen Arango MD [address] [place] [address] Nurse Triage Social History Tobacco Use Types [...] past 12 months, has t he electric, [employer], oil or water [employer] threatened to shut off services in your [...] Triage call returned to patient with pacific Glass Embosser [id number] patient was seen in [facility] and treated for hand injury. Has [...] The caller accepted this outcome Patient speaks azeri and was seen on 10/15 for this symptoms and is not getting any better documented in this encounter Plan of Treatment Not on file documented as of this encounter Visit Diagnoses Not on filedocumented in this encounter Additional Health Concerns Assessment Noted Time PHQ-9 Depression Total Score: 0 12/20/19 23 9:29 AM EDT documented as of this encounter Care Teams Paper Bundler Relationship Specialty Start Date End Date Kayleen Arango MD [address] [place] [phone] PCP - General Family Medicine 06/23/13 documented as of this encounter
== END 2025-01-14 13:12 | disposition home or self-care (01) ==
LOC: HO.ENCR 12:38
PROVIDERS: PCP Student in an Organized Health Care Education/Training Program; Visit Provider Student in an Organized Health Care Education/Training Program
DX: E11.42 Type 2 diabetes mellitus with diabetic polyneuropathy (principal); E66.01 Morbid (severe) obesity due to excess calories; Z68.41 Body mass index [BMI] 40.0-44.9, adult; E78.2 Mixed hyperlipidemia; I10 Essential (primary) hypertension; K76.0 Fatty (change of) liver, not elsewhere classified; Z13.9 Encounter for screening, unspecified
CPT/HCPCS: 99214

== ENCOUNTER → 2025-01-14 12:37 | Outpatient (BNVA) | payer MEDICAID, SELFPAY | PROVIDERS: PCP Student in an Organized Health Care Education/Training Program; Visit Provider Student in an Organized Health Care Education/Training Program | DX: Z68.41 Body mass index [BMI] 40.0-44.9, adult (principal); E66.9 Obesity, unspecified; E78.2 Mixed hyperlipidemia; I10 Essential (primary) hypertension; K76.0 Fatty (change of) liver, not elsewhere classified; Z79.85 Long-term (current) use of injectable non-insulin antidiabetic drugs | CPT/HCPCS: 82947; 83036; 99212 ==

== ENCOUNTER 2025-01-20 12:22 | Outpatient (AMB) | payer MEDICAID, SELFPAY ==
[2025-01-20 12:54] VITALS: BP 109/50; PULSE 72; BMI 43.8
--- NOTE | 2025-01-20 12:54 | A.OFFVIS_ITS ---
Vital Signs 01/20/25 12:54 Height 5 ft 7 in Weight 279 lb 8.738 oz BMI 43.8 BP 109/50 L Blood Pressure Location Rt brachial Position Sitting Pulse 72 Intake Visit Reasons: Liver Fibrosis Intake Note: New patient in office for liver fibrosis. CC: Patient c/o Rt sided abd pain, hearburn, and acid reflux. Denies other GI symptoms or concerns. Legal Biller Required: Yes Legal Biller Language: Sudanese Accompanied by: Self / Same As Patient Allergies morphine Allergy (Unknown, Verified 01/20/25 13:03) Anaphylaxis Iodinated Contrast Media (IV Contrast Dye) Allergy (Verified 01/20/25 13:03) Anaphylaxis metformin Adverse Reaction (Severe, Verified 01/20/25 13:06) Diarrhea PFSH Medical History Metabolic dysfunction-associated fatty liver disease (MAFLD) HTN (hypertension) HLD (hyperlipidemia) Obesity Diabetes mellitus Subclinical hyperthyroidism Surgical History History of surgery on lower extremity History of laparoscopic appendectomy H/O tubal ligation Family History (Updated 01/20/25 @ 13:08 by MARJORIE Bradley) Mother Hypertension Thyroid crisis High cholesterol Heart problem Father Heart problem Paternal Uncle Lung cancer Maternal Aunt Skin cancer Cancer Social History Alcohol intake: never Patient Tobacco Use Status: Never used Tobacco Coding
--- NOTE | 2025-01-20 13:01 | A.OFFVIS_ITS ---
Vital Signs 3 01/20/25 12:54 Height 5 ft 7 in Weight 279 lb 8.738 oz BMI 43.8 BP 109/50 L Blood Pressure Location Rt brachial Position Sitting Pulse 72 Intake Visit Reasons: Liver Fibrosis Allergies morphine Allergy (Unknown, Verified 01/20/25 13:03) Anaphylaxis Iodinated Contrast Media (IV Contrast Dye) Allergy (Verified 01/20/25 13:03) Anaphylaxis metformin Adverse Reaction (Severe, Verified 01/20/25 13:06) Diarrhea HPI HPI Liver Fibrosis: Details: 54-year-old female here for initial evaluation of ?liver fibrosis. ? she is referred by a private practice in [facility]. PMX Asthma Morbid obesity Diabetes Hypertension Fibromyalgia syndrome GERD Lung mass Pleural effusion Depression costochondritis Migraines * SURGICAL HISTORY Tubal ligation appendectomy ? drain of pleural effusion Tb/fib fx repair right * ALLERGIES IVC dye Morphine Oxycodone * LABS: CT ABDOMEN AND PELVIS 09/30/2024 Liver is of normal size and contour, small hiatal hernia otherwise unremarkable * HIDA SCAN 10/12/2024 IMPRESSION: Normal hepatobiliary scan with normal gallbladder ejection fraction. XR THROACIC SPINE [facility] FINDINGS: No bone lesions or fractures. Mild multilevel degenerative changes including intervertebral disc space narrowing and anterior spurring. Normal soft tissues. IMPRESSION: Mild multilevel degenerative changes without malalignment or fracture. WSN: [id number] Ordering Physician: Christian Augustine Reason For Exam sp fall, strain of muscle and tendon of back wall Signature Line Dictated By: Arnold TERRY, Krzysztof Negro Dictated Date/Time: 05/22/22 12:22 p TODAY'S VISIT Gambian #Kerry Live Patient is on Ozempic. [facility] Medical History Metabolic dysfunction-associated fatty liver disease (MAFLD) HTN (hypertension) HLD (hyperlipidemia) Obesity Diabetes mellitus Subclinical hyperthyroidism Surgical History History of surgery on lower extremity History of laparoscopic appendectomy H/O tubal ligation Family History (Updated 01/20/25 @ 13:08 by MARJORIE Bradley) Mother Hypertension Thyroid crisis High cholesterol Heart problem Father Heart problem Paternal Uncle Lung cancer Maternal Aunt Skin cancer Cancer Social History Alcohol intake: never Patient Tobacco Use Status: Never used Tobacco Review of Systems Const Denies fatigue, Denies fever(s), Denies night sweats, Denies poor appetite and Denies weight loss ENT Reports Normal hearing present, Denies dysphagia, Denies odynophagia, Denies throat swelling and Denies tongue swelling Card Reports no additional complaints Resp Reports no additional complaints GI Details: Denies abdominal pain, Denies melena, Denies bloating, Denies hematochezia, Denies constipation, Denies GI cramping, Denies dysphagia, Denies excessive flatus, Denies early satiety, Denies heartburn, Denies diarrhea, Denies nausea, Denies odynophagia, Denies vomiting and Denies hematemesis Reports flank pain Musc Reports back pain and Reports myalgias Skin/Breast Denies pruritus, Denies lesions, Denies rash and Denies jaundice Neuro Reports Normal hearing present and Denies Abnormal speech present Endo Denies fatigue Aller/Immun Denies throat swelling and Denies tongue swelling Physical Exam Vital Signs: Last Vital Signs Pulse 72 01/20/25 12:54 BP 109/50 L 01/20/25 12:54 BMI result Body Mass Index 43.8 Const General: cooperative, no acute distress, well developed and well groomed Nutritional Appearance: well nourished and obese morbidly obese Orientation/consciousness: oriented to person, oriented to place and oriented to time Limitations: language barrier HEENT Head: Yes normocephalic and Yes atraumatic Eyes General: appearance normal, both eyes and all related structures Pupils: Equal, round and reactive pupils present Neck Neck: Yes normal visual inspection and Yes no lymphadenopathy Thyroid: Thyroid normal Chest Chest palpation & inspection: localized rib tenderness with anteroposterior compression (Right lower in flank) Resp Effort & Inspection: normal respiratory effort and able to speak in complete sentences Auscultation: clear to auscultation bilaterally Cardio Rate: regular rate Rhythm: regular rhythm Heart sounds: Normal, physiologic split S2 sound present Peripheral pulses: radial pulses present and posterior tibial pulses present GI Inspection: No distended, Yes Abdominal panniculus present, Yes obesity, Yes scar and Yes striae Palpation (GI): Soft to palpation, Tenderness to palpation present (GI) (Right flank including on ribs), no guarding, not rigid and No hepatosplenomegaly present Percussion: Yes normal to percussion Auscultation: normal bowel sounds Rectal Exam - Female: deferred Abdomen image: 2 1. Surgical scar General: Yes no CVA tenderness Back/Spine/Pelvis Back: no CVA tenderness Thoracic/Lumbar Spine: No thoracic spinal tenderness and other (Increased paraspinal tone on the right) Skin General skin exam: no rashes or lesions noted, turgor normal, skin not dry, no jaundice, No spider nevi and no striae Rashes: no rashes Nails: normal Neuro General: oriented to person, oriented to place and oriented to time Cranial nerves: Yes Equal, round and reactive pupils present and Yes Normal hearing present Speech: No Abnormal speech present Extrem General: Yes normal to inspection, No clubbing, No cyanosis and No edema Psych Appearance: grossly normal and well kempt Mental Status: mental status grossly normal Speech and movement: Normal speech and movement present Affect: normal affect Attitude: cooperative Thought process: Normal thought process present and not confabulating Thought content: Normal thought content present Insight: Good insight present (Psych) Judgement: Good judgement present (Psych) Assessment & Plan Assessment & Plan (1) Flank pain: Code(s): R10.9 - Unspecified abdominal pain Category: Medical (2) Thoracic back pain: Code(s): M54.6 - Pain in thoracic spine Category: Medical Plan Gambian #Kerry Live Patient is on Ozempic. - The patient is a 54-year-old female presenting with chronic right flank pain. - Described as pressure-like, is persistent throughout the day but worsens towards the evening. It is not related to eating or moving her bowels. It is somewhat better lying flat on her back or sitting still but is greatly worsened if she causes her turns in bed. In his greatly relieved by pain medications such as Motrin, meloxicam combined with Tylenol, but the pain will immediately return if she does not take them daily. She denies any associated symptoms such as nausea vomiting constipation diarrhea or severe unintended weight loss. - Previous ultrasound suggested fatty liver, but CT and normal blood work refuted this finding. - she had concerns about liver problems, while a ultrasound suggested hepatomegaly a subsequent CAT scan showed normal liver and her transaminases and remaining liver panels are completely normal. I reassure her that she does not have any sustained liver problems. -she does have chest x-rays and thoracic spine x-rays in the past showing significant osteoarthritis of the thoracic spine with disc space narrowing and osteophytes. To date there has been no GI causes identified specifically there has been no gallstones, no abnormality of the pancreas her GI tract, and a negative HIDA scan. This leads me to severely doubt if this is actually a GI problem and is likely more of a musculoskeletal problem. This is especially supported by the fact that it is relieved by NSAIDs and not worsened by these medications. -we can consider getting an EGD but I really feel this would be noninformative. For now I think we should get fresh x-rays of her lumbar and thoracic spine combined with some more recent lab work and a thyroid. We will also get a urinalysis to see if nephrolithiasis is in the differential. Going forward she likely will need an MRI to get more definitive answers. For now I will hold off on ordering the EGD and we will see what these studies bring. Return office visit in 4 weeks Orders: Orders 2 Complete Blood Count Auto Diff Today M54.6 - Pain in thoracic spine, R10.9 - Unspecified abdominal pain TSH reflex Free T4 Today M54.6 - Pain in thoracic spine, R10.9 - Unspecified abdominal pain XR lumbar spine 2-3V Today M54.6 - Pain in thoracic spine, R10.9 - Unspecified abdominal pain Comprehensive Met. Panel Today M54.6 - Pain in thoracic spine, R10.9 - Unspecified abdominal pain XR thoracic spine 2V Today M54.6 - Pain in thoracic spine, R10.9 - Unspecified abdominal pain UA CC w/rflx Micro + Cult Today R10.9 - Unspecified abdominal pain Coding Level of Care Code New Pt Level 3 (73057) Diagnoses Flank pain R10.9 Thoracic back pain M54.6
--- OUTSIDE RECORDS SUMMARY | 2025-01-20 15:24 | XMS_ITS | Encounter Summary ---
Author Organization [employer] Address [address] [facility] 7t [place] [address] Care Team Providers Care Photo Manager Name Role Phone Kayleen Arango MD Primary Care Provider Reason for Visit * Reason Onset Date Comments Nurse Triage 10/18/2023 Encounter Details Date Type Department Care Team ([facility] st Contact Info) Description 10/18/2023 Telephone [facility] [address] [place] [address] Kayleen Arango MD [address] [place] [address] Nurse Triage Social History Tobacco Use Types [...] past 12 months, has t he electric, 2d2c, oil or water [employer] threatened to shut off services in your [...] Triage call returned to patient with pacific Bar Hostess [id number] patient was seen in [facility] and treated for hand injury. Has been [...] The caller accepted this outcome Patient speaks hebrew and was seen on 10/15 for this symptoms and is not getting any better documented in this encounter Plan of Treatment Not on file documented as of this encounter Visit Diagnoses Not on filedocumented in this encounter Additional Health Concerns Assessment Noted Time PHQ-9 Depression Total Score: 0 12/20/19 23 9:29 AM EDT documented as of this encounter Care Teams Photo Manager Relationship Specialty Start Date End Date Kayleen Arango MD [address] [place] [phone] PCP - General Family Medicine 06/23/13 documented as of this encounter
--- OUTSIDE RECORDS SUMMARY | 2025-01-20 15:24 | XMS_ITS | Encounter Summary ---
Author Organization [facility] Address [address] [facility] [address] [place] [phone] Phone Care Team Providers Care Rn Clinical Documentation Name Role Phone Unavailable Primary Care Provider Unavailabl e Encounter Details Date Type Department Care Team (Late st Contact Info) Description 11/05/2019 Ancillary Orders [facility] [address] [place] [address] [place] [address] Jon Lindo, [address] [address] Palpitations Social History Tobacco Use Types Packs/Day [...] It is not the complete legal health record.[facility]
--- OUTSIDE RECORDS SUMMARY | 2025-01-20 15:24 | XMS_ITS | Encounter Summary ---
Author Organization [employer] Address [address] [facility] 7t [place] [address] Care Team Providers Care Butter Printer Name Role Phone Kayleen Arango MD Primary Care Provider [phone] Reason for Visit * Reason Onset Date Comments Nurse Triage 12/31/2023 Encounter Details Date Type Department Care Team ([facility] st Contact Info) Description 12/31/2023 Telephone [facility] [address] [place] [address] Kayleen Arango MD [address] [place] [address] Nurse Triage Social History Tobacco Use Types [...] past 12 months, has t he electric, [employer], [employer] or water [employer] threatened to shut off services in your [...] documented as of this encounter Care Teams Butter Printer Relationship Specialty Start Date End Date Kayleen Arango MD [address] [place] [phone] PCP - General Family Medicine 06/23/13 documented as of this encounter
--- OUTSIDE RECORDS SUMMARY | 2025-01-20 15:24 | XMS_ITS | Clinical Summary ---
Author Organization [facility] Address [address] [address] Phone Care Team Providers Care Window Draper Name Role Phone Unavailable Primary Care Provider [...] ACO C3 ACO C3 ACO C3 ACO [facility] C3 ACO Additional Source Comments The information contained in this document represents components of the legal health record. It is not the complete legal health record.[facility]
--- OUTSIDE RECORDS SUMMARY | 2025-01-20 15:24 | XMS_ITS | Clinical Summary ---
Author Organization [facility] Address [address] [place] [phone] Phone Care Team Providers Care Net Wpf Developer Name Role Phone Kayleen Arango MD Primary Care Provider [phone] Allergies Active Allergy Reactions Criticality Noted Date [...] Vaccines (1 of 2) 2022 Depression Screening 05/13/2024 Diabetes: Annual Urine Albumin-Creatinine Ratio (uACR) 08/19/2024 Diabetes: Blood Sugar Control Test (HGBA1C) 08/19/2024 12/20/2023 COVID-19 Vaccine ( season) 2025 05/09/2023, 11/26/2021, 02/14/2021, Additional history exists Influenza Vaccine (#1) 2025 Diabetes: Annual GFR [...] 09/11/2024 11:56 AM [facility] Chloride 101 96 - 110 [...] [facility] Comment:Calculation based on the Chronic [...] MD LAB BLOOD ORDERABLES Final Resu lt [facility] [address] [place] [address], from Last 3 Months or Most Recently Relevant to Health Maintenance Insurance MEDICAID - [place] Care Teams Net Wpf Developer Relationship Specialty Start Date End Date Kayleen Arango MD [address] [place] [phone] PCP - General 07/05/14
--- OUTSIDE RECORDS SUMMARY | 2025-01-20 15:24 | XMS_ITS | Clinical Summary ---
Author Organization [employer] Address [address] [facility] 7t [place] [address] Care Team Providers Care Mustanger Name Role Phone Kayleen Arango MD Primary Care Provider Allergies Active Allergy Reactions Criticality Noted Date [...] 24 Active Blood Glucose Monitoring Suppl (FreeStyle [place] Lite) w/Device kitIndications:N ew onset type 2 [...] DAY 30 tablet 11 01/07/20 25 Active FREESTYLE LITE test stripIndications :New onset type 2 diabetes mellitus (CMS/HCC) USE TO TEST BLOOD SUGAR 2 TIMES DAILY 100 strip 11 01/16/20 25 Active metFORMIN (Glucophage) 500 MG tablet Take 1 tablet (500 mg) by mouth with breakfast and with evening meal. 60 tablet 11 12/18/19 24 025 Discontinued empagliflozin (Jardiance) 10 MG Take 1 tablet (10 mg) by mouth Once per day. 30 tablet 12/24/19 24 025 Discontinued FREESTYLE LITE test stripIndications :New onset type 2 diabetes mellitus (CMS/HCC) Use to test blood sugar 2 times daily 100 each 12 12/24/19 24 025 Discontinued predniSONE (Deltasone) 20 MG tabletIndication s:Acute severe [...] DEPARTMENT Provider, Generic External Data 01/14/2025 Refill [facility] [address] [place] [address] Michaela Ridley MD New onset type 2 diabetes mellitus (CMS/HCC) 01/05/2025 Refill [facility] [address] [place] [address] Michaela Ridley MD 01/04/2025 1:20 PM EDT Office Visit [facility] [address] [place] [address] Shikha Khan MD Acute severe exacerbation of moderate persistent asthma (Primary Dx); Viral URI 01/04/2025 Travel 12/20/2024 Refill [facility] [address] [place] [address] Kayleen Arango MD 12/13/2024 Refill [facility] [address] [place] [address] Kayleen Arango MD Chronic bilateral thoracic back pain 12/01/2024 8:30 AM EDT Office Visit [facility] [address] [place] [address] Kayleen Arango MD Left hip pain (Primary Dx); Type 2 diabetes mellitus without complication, without long-term current use of insulin ([facility]); Primary hypertension 12/01/2024 Travel 11/30/2024 Telephone [facility] [address] [place] [address] Kayleen Arango MD Chart Prep 11/23/2024 Patient Outreach [facility] [address] [place] [address] Diane Torres Pre-visit Planning (Pre visit planning LVM ) 11/19/2024 Telephone [facility] [address] [place] [address] Kayleen Arango MD Nurse Triage 11/17/2024 9:40 AM EDT Office Visit [facility] [address] [place] [address] Tamiko Barrera MD Acute left-sided low back pain with left-sided sciatica 11/17/2024 Travel 11/05/2024 Refill [facility] [address] [place] [address] Michaela Ridley MD from Last 3 Months Immunizations Immunization Administration [...] 12/19/2022, 12/20/19 23 SDOH Screening 12/20/2023 12/19/2022 Lipid Panel 12/16/2024 [...] complication, without long-term current use of insulin ([facility]) POCT GLUCOSE Routine 12/01/2024 9:27 AM EDT Type 2 diabetes mellitus without complication, without long-term current use of insulin ([facility]) LIPID PANEL, STANDARD Routine 12/17/2023 8:55 AM EDT Primary hypertension BI MAMMOGRAM DIAGNOSTIC BILATERAL Routine 09/16/2019 10:49 AM EDT from Last 3 Months or Most Recently Relevant to Health Maintenance Results * Glucose, Whole Blood (01/14/2025 12:53 PM EDT) Glucose, Whole Blood 83 60 - 115 mg/dL [facility] Comment:METER #: [id number] Testing performed in the Endocrinology Department [address] , [address], [facility]. 01/14/2025 12:5 3 PM EDT 01/14/2025 12:56 PM EDT us Generic External Data Provider LAB BLOOD ORDERAB LES Final Result [facility] [address] [place] [phone] * Influenza B (ID NOW Rapid Molecular) (01/04/2025 1:13 PM EDT) Influenza B Negative Negative, Indeterminate [facility] Swab 01/04/2025 1:13 PM EDT Shikha Khan MD POINT OF CARE TEST ENTER/EDIT ORDERABLES Final Result Performing Organization Address [facility]/ZIP Co de Phone Number [facility] [address] [place] [phone] * Influenza A (ID NOW Rapid Molecular) (01/04/2025 1:13 PM EDT) Influenza A Negative Negative, Indeterminate [facility] Swab 01/04/2025 1:13 PM EDT Shikha Khan MD POINT OF CARE TEST ENTER/EDIT ORDERABLES Final Result Performing Organization Address [facility] Co de Phone Number [facility] [address] [place] [phone] * POCT Rapid COVID Ag (01/04/2025 1:13 PM EDT) Rapid COVID Ag Negative [facility] Swab 01/04/2025 1:13 PM EDT Shikha Khan MD POINT OF CARE TEST ENTER/EDIT ORDERABLES Final Result Performing Organization Address [facility] Co de Phone Number [facility] [address] [place] [phone] * (ABNORMAL) POCT A1C (12/01/2024 9:28 AM EDT) Hemoglobin A1C 5.8(A) 4.0 - 5.7 % QC Media Lot # Comment:[id number] Lot# Expiration Date Comment:07/21/2026 Blood 12/01/2024 9:28 AM EDT us Kayleen Arango MD POINT OF CARE TEST ENTER/EDIT OR DERABLES Final Result * POCT glucose manually resulted (12/01/2024 9:27 AM EDT) Glucose Blood, POC 132 60 - 200 mg/dL QC Media Lot # Comment:[id number] Lot# Expiration Date Comment:03/11/2025 Blood Capillary blood specimen / Unknown 12/01/2024 9:27 AM EDT Kayleen Arango MD POINT OF CARE TEST ENTER/EDIT OR DERABLES Final Result * (ABNORMAL) Lipid Panel, Standard (12/17/2023 8:55 AM EDT) Triglycerides 200(H) <150 mg/dL [facility] Comment:Desirable Triglyceri de: less than 150 mg/dLBorderline High Triglyceride 150-199 mg/dLHigh Triglyceride: 200-499 mg/dLVery High Triglyceride: greater than or equal to 5OO mg/dL Cholesterol 226(H) <200 mg/dL [facility] Comment:Desirable Cholestero l: less than 200 mg/dLBorderline High Cholesterol: 200-239 mg/dLHigh Cholesterol: greater than 239 mg/dL LDL Cholesterol Calculated 148(H) <100 mg/dL [facility] Comment:Desirable LDL: less than 100 mg/dLNear Optimal/Above Optimal LDL: 110- 129 mg/dLBorderline High LDL: 130-159 mg/dLHigh LDL: 160-189 mg/dLVery High LDL: greater than or equal to 190 mg/dL HDL Cholesterol 38(L) >40 mg/dL [facility] Comment:Desirable HDL: great er than 40 mg/dL Note: This HDL assay may give artificially low results in patients with liver disease. Blood Venous blood specimen / Unknown 12/17/2023 8:55 AM EDT 12/17/2023 2:02 PM EDT Kayleen Arango MD LAB BLOOD ORDERABLES Final Resul t [facility] [address] [place] [phone] * 3D BILATERAL DIAGN MAMMO 1 [...] Most Recently Relevant to Health Maintenance Insurance [address] [place] [address] C3 Care Teams Mustanger Relationship Specialty Start Date End Date Kayleen Arango MD [address] [place] [phone] PCP - General Family Medicine 06/23/13
--- OUTSIDE RECORDS SUMMARY | 2025-01-20 15:24 | XMS_ITS | Encounter Summary ---
Author Organization [employer] Address [address] [facility] 7t [place] [address] Care Team Providers Care Gas Meter Checker Name Role Phone Kayleen Arango MD Primary Care Provider [phone] Reason for Visit * Reason Onset Date Comments Appointment Request 06/27/2023 Encounter Details Date Type Department Care Team ([facility] Contact Info) Description 06/27/2023 Telephone [facility] [address] [place], [place] [phone] Kayleen Arango MD [address] [place] [address] Appointment Request Social History Tobacco Use Types [...] her current diagnostics. Please contact pt @ [phone] Jordanian Speaker documented in this encounter Plan of Treatment Not on file documented as of this encounter Visit Diagnoses Not on filedocumented in this encounter Additional Health Concerns Assessment Noted Time PHQ-9 Depression Total Score: 0 12/20/19 23 9:29 AM EDT documented as of this encounter Care Teams Gas Meter Checker Relationship Specialty Start Date End Date Kayleen Arango MD [address] [place] [phone] PCP - General Family Medicine 06/23/13 documented as of this encounter
--- OUTSIDE RECORDS SUMMARY | 2025-01-20 15:24 | XMS_ITS | Encounter Summary ---
Author Organization [employer] Address [address] [facility] [address] [place] [address] Care Team Providers Care Sapphire Stylus Grinder Name Role Phone Kayleen Arango MD Primary Care Provider Encounter Details Date Type Department Care Team ([facility] Contact Info) Description 09/11/2024 Orders Only [facility] [address] [place] [address] Provider, MD [place] Social History Tobacco Use [...] documented as of this encounter Care Teams Sapphire Stylus Grinder Relationship Specialty Start Date End Date Kayleen Arango MD [address] [place] [phone] PCP - General Family Medicine 06/23/13 documented as of this encounter
--- OUTSIDE RECORDS SUMMARY | 2025-01-20 15:24 | XMS_ITS | Encounter Summary ---
Author Organization [employer] Address [address] [facility] 7t [place] [address] Care Team Providers Care Supervisor Scrap Preparation Name Role Phone Kayleen Arango MD Primary Care Provider [phone] Reason for Visit * Reason Comments Med Refill Encounter Details Date Type Department Care Team ([facility] Contact Info) Description 01/14/2025 Refill [facility] [address] [place], [place] [phone] Michaela Ridley MD [address] [place] [address] New onset type 2 diabetes mellitus (CMS/HCC) [...] documented as of this encounter Care Teams Supervisor Scrap Preparation Relationship Specialty Start Date End Date Kayleen Arango MD [address] [place] [phone] PCP - General Family Medicine 06/23/13 documented as of this encounter
== END 2025-01-20 13:45 ==
LOC: HO.HGI 12:23
PROVIDERS: PCP Student in an Organized Health Care Education/Training Program; Visit Provider Nurse Practitioner
DX: R10.9 Unspecified abdominal pain (principal); M54.6 Pain in thoracic spine
CPT/HCPCS: 99203

== ENCOUNTER → 2025-01-20 12:22 | Outpatient (BNVA) | payer MEDICAID, SELFPAY | PROVIDERS: PCP Student in an Organized Health Care Education/Training Program; Visit Provider Nurse Practitioner | DX: M54.6 Pain in thoracic spine (principal); R10.9 Unspecified abdominal pain | CPT/HCPCS: 99212 ==

== ENCOUNTER 2025-02-01 07:23 | Outpatient (REF) | payer MEDICAID, SELFPAY ==
--- NOTE | ~2025-02-01 | XR_ITS ---
CLINICAL HISTORY: M25.559 - Pain in unspecified hip 3 view, pelvis and left hip Comparison: None provided Findings: The bones are intact. There is mild arthritic change. The soft tissues are unremarkable. IMPRESSION: No acute findings. Mild degenerative changes of the left hip. This document has been electronically signed by: Stefanie Henderson MD on 02/02/2025 14:47:06
--- OUTSIDE RECORDS SUMMARY | 2025-02-01 07:25 | XMS_ITS | Clinical Summary ---
Author Organization [employer] Address [address] [facility] 7t [place] [address] Care Team Providers Care Night Time Nanny Name Role Phone Kayleen Arango MD Primary Care Provider [phone] Allergies Active Allergy Reactions Criticality Noted Date [...] 24 Active Blood Glucose Monitoring Suppl (FreeStyle [place] Lite) w/Device kitIndications:N ew onset type 2 [...] DAILY 100 strip 11 01/16/20 25 Active empagliflozin (Jardiance) 10 MG Take 1 tablet (10 mg) by mouth Once per day. 30 tablet 11 12/24/19 24 025 Discontinued FREESTYLE LITE test [...] DEPARTMENT Provider, Generic External Data 01/14/2025 Refill [facility] PED[facility] [address] [place] [address] Michaela Ridley MD New onset type 2 diabetes mellitus (CMS/HCC) 01/05/2025 Refill [facility] [address] [place] [address] Michaela Ridley MD 01/04/2025 1:20 PM EDT Office Visit [facility] [address] [place] [address] Shikha Khan MD Acute severe exacerbation of moderate persistent asthma (Primary Dx); Viral URI 01/04/2025 Travel 12/20/2024 Refill [facility] [address] [place] [address] Kayleen Aragno MD 12/13/2024 Refill [facility] [address] [place] [address] Kayleen Arango MD Chronic bilateral thoracic back pain 12/01/2024 8:30 AM EDT Office Visit [facility] [address] [place] [address] Kayleen Arango MD Left hip pain (Primary Dx); Type 2 diabetes mellitus without complication, without long-term current use of insulin (CMS/[facility]); Primary hypertension 12/01/2024 Travel 11/30/2024 Telephone [facility] [address] [place] [address] Kayleen Arango MD Chart Prep 11/23/2024 Patient Outreach [facility] [address] [place] [address] Diane Torres Pre-visit Planning (Pre visit planning LVM ) 11/19/2024 Telephone [facility] [address] [place], [place] [phone] Kayleen Arango MD Nurse Triage 11/17/2024 9:40 AM EDT Office Visit [facility] [address] [place] [phone] Tamiko Barrera MD Acute left-sided low back pain with left-sided sciatica 11/17/2024 Travel 11/05/2024 Refill [facility] [address] [place], [place] [phone] Michaela Ridley MD from Last 3 Months [...] complication, without long-term current use of insulin ([facility]) POCT GLUCOSE Routine 12/01/2024 9:27 AM EDT Type 2 diabetes mellitus without complication, without long-term current use of insulin ([facility]) LIPID PANEL, STANDARD Routine 12/17/2023 8:55 AM EDT Primary hypertension BI MAMMOGRAM DIAGNOSTIC BILATERAL Routine 09/16/2019 10:49 AM EDT from Last 3 Months or Most Recently Relevant to Health Maintenance Results * Glucose, Whole Blood (01/14/2025 12:53 PM EDT) Pathologist [facility] Glucose, Whole Blood 83 60 - 115 mg/dL [facility] Comment:METER #: [id number] Testing performed in the Endocrinology Department [address] , [address], [facility]. 01/14/2025 12:5 3 PM EDT 01/14/2025 12:56 PM EDT us Generic External Data Provider LAB BLOOD ORDERAB LES Final Result Performing Organization Address [facility]/ZIP Co de Phone Number [facility] [address] [place] [phone] * Influenza B (ID NOW Rapid Molecular) (01/04/2025 1:13 PM EDT) [facility] Influenza B Negative Negative, Indeterminate [facility] Swab 01/04/2025 1:13 PM EDT us Shikha Khan MD POINT OF CARE TEST ENTER/EDIT ORDERABLES Final Result [facility] [address] [place] [phone] * Influenza A (ID NOW Rapid Molecular) (01/04/2025 1:13 PM EDT) Influenza A Negative Negative, Indeterminate [facility] Swab 01/04/2025 1:13 PM EDT us Shikha Khan MD POINT OF CARE TEST ENTER/EDIT ORDERABLES Final Result Performing Organization Address [facility] Co de Phone Number [facility] [address] [place] [phone] * POCT Rapid COVID Ag (01/04/2025 1:13 PM EDT) Pathologist [facility] Rapid COVID Ag Negative [facility] Swab 01/04/2025 1:13 PM EDT us Shikha Khan MD POINT OF CARE TEST ENTER/EDIT ORDERABLES Final Result Performing Organization Address [facility] Co de Phone Number [facility] [address] [place] [phone] * (ABNORMAL) POCT A1C (12/01/2024 9:28 AM EDT) Pathologist [facility] Hemoglobin A1C 5.8(A) 4.0 - 5.7 % QC Media Lot # Comment:[id number] Lot# Expiration Date Comment:07/21/2026 Blood 12/01/2024 9:28 AM EDT us Kayleen Arango MD POINT OF CARE TEST ENTER/EDIT OR DERABLES Final Result * POCT glucose manually resulted (12/01/2024 9:27 AM EDT) Pathologist [facility] Glucose Blood, POC 132 60 - 200 mg/dL QC Media Lot # Comment:[id number] Lot# Expiration Date Comment:03/11/2025 Blood Capillary blood specimen / Unknown 12/01/2024 9:27 AM EDT Kayleen Arango MD POINT OF CARE TEST ENTER/EDIT OR DERABLES Final Result * (ABNORMAL) Lipid Panel, Standard (12/17/2023 8:55 AM EDT) Triglycerides 200(H) <150 mg/dL [facility] Comment:Desirable Triglyceri de: less than 150 mg/dLBorderline High Triglyceride 150-199 mg/dLHigh Triglyceride: 200-499 mg/dLVery High Triglyceride: greater than or equal to 5OO mg/dL Cholesterol 226(H) <200 mg/dL [facility] Comment:Desirable Cholestero l: less than 200 mg/dLBorderline High Cholesterol: 200-239 mg/dLHigh Cholesterol: greater than 239 mg/dL LDL Cholesterol Calculated 148(H) <100 mg/dL [facility] Comment:Desirable LDL: less than 100 mg/dLNear Optimal/Above Optimal LDL: 110- 129 mg/dLBorderline High LDL: 130-159 mg/dLHigh LDL: 160-189 mg/dLVery High LDL: greater than or equal to 190 mg/dL HDL Cholesterol 38(L) >40 mg/dL [facility] Comment:Desirable HDL: great er than 40 mg/dL Note: This HDL assay may give artificially low results in patients with liver disease. Blood Venous blood specimen / Unknown 12/17/2023 8:55 AM EDT 12/17/2023 2:02 PM EDT Kayleen Arango MD LAB BLOOD ORDERABLES Final Resul t [facility] [address] [place] [phone] [phone] * 3D BILATERAL DIAGN MAMMO 1 [...] Relevant to Health Maintenance Insurance [address] [place], [place] [address] [employer] C3 Care Teams Night Time Nanny Relationship Specialty Start Date End Date Kayleen Arango MD [address] [place] [phone] PCP - General Family Medicine 06/23/13
--- OUTSIDE RECORDS SUMMARY | 2025-02-01 07:25 | XMS_ITS | Clinical Summary ---
Author Organization [facility] Address [address] [address] Phone Care Team Providers Care Bakery Machine Mechanic Supervisor Name Role Phone Unavailable Primary Care Provider [...] ACO C3 ACO C3 ACO C3 ACO [facility] C3 ACO Additional Source Comments The information contained in this document represents components of the legal health record. It is not the complete legal health record.[facility]
--- OUTSIDE RECORDS SUMMARY | 2025-02-01 07:25 | XMS_ITS | Encounter Summary ---
Author Organization [employer] Address [address] [facility] 7t [place] [address] Care Team Providers Care Sewing Machine Tester Name Role Phone Kayleen Arango MD Primary Care Provider [phone] Reason for Visit * Reason Onset Date Comments Nurse Triage 10/18/2023 Encounter Details Date Type Department Care Team ([facility] st Contact Info) Description 10/18/2023 Telephone [facility] [address] [place] [address] Kayleen Arango MD [address] [place] [address] Nurse Triage Social History Tobacco Use Types [...] past 12 months, has t he electric, [employer], oil or water [email or web address] threatened to shut off services in your [...] Triage call returned to patient with pacific Customs Verifier [id number] patient was seen in [facility] and treated for hand injury. Has [...] The caller accepted this outcome Patient speaks maori and was seen on 10/15 for this symptoms and is not getting any better documented in this encounter Plan of Treatment Not on file documented as of this encounter Visit Diagnoses Not on filedocumented in this encounter Additional Health Concerns Assessment Noted Time PHQ-9 Depression Total Score: 0 12/20/19 23 9:29 AM EDT documented as of this encounter Care Teams Sewing Machine Tester Relationship Specialty Start Date End Date Kayleen Arango MD [address] [place] [phone] PCP - General Family Medicine 06/23/13 documented as of this encounter
--- OUTSIDE RECORDS SUMMARY | 2025-02-01 07:25 | XMS_ITS | Encounter Summary ---
Author Organization [employer] Address [address] [facility] 7t [place] [address] Care Team Providers Care Case Management Associate Name Role Phone Kayleen Arango MD Primary Care Provider [phone] Encounter Details Date Type Department Care Team ([facility] Contact Info) Description 09/11/2024 Orders Only [place] [address] [place] [address] Provider, MD [place] Social History Tobacco Use [...] documented as of this encounter Care Teams Case Management Associate Relationship Specialty Start Date End Date Kayleen Arango MD [address] [place] [phone] PCP - General Family Medicine 06/23/13 documented as of this encounter
--- OUTSIDE RECORDS SUMMARY | 2025-02-01 07:25 | XMS_ITS | Clinical Summary ---
Author Organization [facility] Address [address] [place] [phone] Phone Care Team Providers Care Head Inspector Name Role Phone Kayleen Arango MD Primary Care Provider [phone] Allergies Active Allergy Reactions Criticality Noted Date [...] mmol/L LAB CHEMISTRY METHOD 09/11/2024 11:56 AM [facility] Potassium 4.0 3.5 - 5.5 mmol/L LAB CHEMISTRY METHOD 09/11/2024 11:56 AM [facility] Chloride 101 96 - 110 mmol/L LAB CHEMISTRY METHOD 09/11/2024 11:56 AM [facility] CO2 30 21 - 32 mmol/L LAB CHEMISTRY METHOD 09/11/2024 11:56 AM [facility] Anion Gap 5 3 - 11 LAB CHEMISTRY METHOD 09/11/2024 11:56 AM [facility] Glucose 113(H) 70 - 100 mg/dL LAB CHEMISTRY METHOD 09/11/2024 11:56 AM [facility] BUN 14 5 - 25 mg/dL LAB CHEMISTRY METHOD 09/11/2024 11:56 AM [facility] Creatinine 0.90 0.50 - 1.10 mg/dL LAB CHEMISTRY METHOD 09/11/2024 11:56 AM [facility] eGFR 77 >=60 mL/min/1. 73m2 LAB CHEMISTRY METHOD 09/11/2024 11:56 AM [facility] Comment:Calculation based on the Chronic Kidney Disease Epidemiology Collaboration (CKD-EPI) equation refit without adjustment for race. BUN/Creatinine Ratio 15.6 LAB CHEMISTRY METHOD 09/11/2024 11:56 AM [facility] Calcium 9.7 8.5 - 10.5 mg/dL LAB CHEMISTRY METHOD 09/11/2024 11:56 AM [facility] AST (SGOT) 16 10 - 42 unit/L LAB CHEMISTRY METHOD 09/11/2024 11:56 AM [facility] ALT (SGPT) 29 10 - 60 unit/L LAB CHEMISTRY METHOD 09/11/2024 11:56 AM [facility] Alkaline Phosphatase 102 42 - 121 unit/L LAB CHEMISTRY METHOD 09/11/2024 11:56 AM [facility] Total Protein 7.4 6.0 - 8.0 g/dL LAB CHEMISTRY METHOD 09/11/2024 11:56 AM [facility] Albumin 3.8 3.2 - 5.0 g/dL LAB CHEMISTRY METHOD 09/11/2024 11:56 AM [facility] Total Bilirubin 0.5 0.0 - 1.4 mg/dL LAB CHEMISTRY METHOD 09/11/2024 11:56 AM [facility] Blood Venous blood specimen / Unknown Venipuncture / Unknown 09/11/2024 10:20 AM EDT 09/11/2024 11:21 AM EDT Damian Aviles MD LAB BLOOD ORDERABLES Final Resu lt [facility] [address] [place] [address], from Last 3 Months or Most Recently Relevant to Health Maintenance Insurance MEDICAID - [place] Care Teams Head Inspector Relationship Specialty Start Date End Date Kayleen Arango MD [address] [place] [phone] PCP - General 07/05/14
--- OUTSIDE RECORDS SUMMARY | 2025-02-01 07:25 | XMS_ITS | Encounter Summary ---
Author Organization [employer] Address [address] [facility] 7t [place] [address] Care Team Providers Care Secretary Of State Name Role Phone Kayleen Arango MD Primary Care Provider Reason for Visit * Reason Onset Date Comments Appointment Request 06/27/2023 Encounter Details Date Type Department Care Team ([facility] Contact Info) Description 06/27/2023 Telephone [facility] [address] [place], [place] [phone] Kayleen Arango MD [address] [place] [address] Appointment Request Social History Tobacco Use Types [...] her current diagnostics. Please contact pt @ [phone] Puerto Rican Speaker documented in this encounter Plan of Treatment Not on file documented as of this encounter Visit Diagnoses Not on filedocumented in this encounter Additional Health Concerns Assessment Noted Time PHQ-9 Depression Total Score: 0 12/20/19 23 9:29 AM EDT documented as of this encounter Care Teams Secretary Of State Relationship Specialty Start Date End Date Kayleen Arango MD [address] [place] [phone] PCP - General Family Medicine 06/23/13 documented as of this encounter
--- OUTSIDE RECORDS SUMMARY | 2025-02-01 07:25 | XMS_ITS | Encounter Summary ---
Author Organization [facility] Address [address] [facility] [address] [place] [phone] Phone Care Team Providers Care Rn Advice Name Role Phone Unavailable Primary Care Provider Unavailabl e Encounter Details Date Type Department Care Team (Late st Contact Info) Description 11/05/2019 Ancillary Orders [facility] [address] [place] [address] [place] [address] Jon Lindo, [address] [address] Palpitations Social History Tobacco Use Types Packs/Day [...] It is not the complete legal health record.[facility]
--- OUTSIDE RECORDS SUMMARY | 2025-02-01 07:26 | XMS_ITS | Encounter Summary ---
Author Organization [employer] Address [address] [facility] 7t [place] [address] Care Team Providers Care Pens And Pencils Repairer Name Role Phone Kayleen Arango MD Primary Care Provider [phone] Reason for Visit * Reason Onset Date Comments Nurse Triage 12/31/2023 Encounter Details Date Type Department Care Team ([facility] st Contact Info) Description 12/31/2023 Telephone [facility] [address] [place] [address] Kayleen Arango MD [address] [place] [address] Nurse Triage Social History Tobacco Use Types [...] past 12 months, has t he electric, [employer], [employer] or water [employer] threatened to shut off services in your [...] documented as of this encounter Care Teams Pens And Pencils Repairer Relationship Specialty Start Date End Date Kayleen Arango MD [address] [place] [phone] PCP - General Family Medicine 06/23/13 documented as of this encounter
== END 2025-02-01 07:24 | disposition home or self-care (01) ==
LOC: HO.HOSX 07:23
PROVIDERS: Visit Provider Physician Assistant
DX: M70.62 Trochanteric bursitis, left hip (principal)
CPT/HCPCS: 20610; 73502; 99212; J0665; J1100; J2003

== ENCOUNTER 2025-02-01 12:34 | Outpatient (AMB) | payer MEDICAID, SELFPAY ==
--- NOTE | 2025-02-01 12:49 | A.OFFVIS_ITS ---
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 NO history of injections/PT. Patient reports ongoing pain for about 3 - 4 months. She mentions that her pain is on the lateral aspect of the hip and moves to her lower back and down her leg. Patient states that her pain is worse when she is walking for 30 min, going up the stairs and sitting. She has tried ibuprofen, tylenol and meloxicam with mild relief. 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 Shaw is a 54-year-old female who presents to the office today for lateral left-sided hip pain for the past 3-4 months. She denies any injury or trauma to the area. She is able to pinpoint the exact area of pain. She is unable to lay on her left side at night due to pain. Denies any difficulty with range of motion. Reports that her pain gets worse with ambulating, going up and down stairs, sitting and lying on her left side. She has tried and failed ibuprofen, Tylenol and meloxicam. [facility] Medical History Metabolic dysfunction-associated fatty liver disease (MAFLD) HTN (hypertension) HLD (hyperlipidemia) Obesity Diabetes mellitus Subclinical hyperthyroidism Surgical History History of surgery on lower extremity History of laparoscopic appendectomy H/O tubal ligation Family History (Updated 01/20/25 @ 13:08 by MARJORIE Bradley) Mother Hypertension Thyroid crisis High cholesterol Heart problem Father Heart problem Paternal Uncle Lung cancer Maternal Aunt Skin cancer Cancer Social History Alcohol intake: never Patient Tobacco Use Status: Never used Tobacco Review of Systems Const All systems reviewed & are unremarkable except as noted in HPI and below Physical Exam Vital Signs: BMI result Body Mass Index 43.7 Const General: cooperative, healthy appearing and no acute distress Resp Effort & Inspection: normal respiratory effort and able to speak in complete sentences Extrem Other: Left hip: Full hip ROM in all planes with no groin pain. Tenderness to palpation over the greater trochanteric bursa. 5/5 strength with resisted hip flexion, knee extension, abduction, and abduction. Able to perform straight leg raise. NVI. Psych Appearance: grossly normal Mental Status: mental status grossly normal Attitude: cooperative Office Procedures AMB Joint Injection/Aspiration Joint Injection/Aspiration Primary Site: other (Left greater troch bursa) Prep: site was prepped using aseptic technique, ethochloride spray was applied and injection warnings given Injected: 40 mg of, with 3 mL of, 1% plain lidocaine, 0.25% bupivacaine, decadron and other (Greater troch bursa) Approach Used: other (Lateral) Procedure: The patient tolerated the procedure well, but had some pain with the injection and there was some relief with the local anesthesia Coding 23647 - Glenohumeral/Tronchanteric Bursa/Intraarticular Procedure code (CPT) selection complete Assessment & Plan Assessment & Plan (1) Greater trochanteric bursitis of left hip: Code(s): M70.62 - Trochanteric bursitis, left hip Category: Medical Plan Ms. Shaw is a 54-year-old female who presents to the office today for lateral left-sided hip pain for the past 3-4 months. She denies any injury or trauma to the area. She is able to pinpoint the exact area of pain. She is unable to lay on her left side at night due to pain. Denies any difficulty with range of motion. Reports that her pain gets worse with ambulating, going up and down stairs, sitting and lying on her left side. She has tried and failed ibuprofen, Tylenol and meloxicam. The patient was offered a cortisone injection in the left greater trochanteric bursa. The patient was explained the risks, benefits, and alternatives to receiving this injection. After receiving consent for the injection, the patient had the procedure done while in the office today. The patient tolerated the procedure well with no complications. Due to the patient?s history of diabetes, they were instructed to monitor their blood glucose level. The patient was informed that they could see a rise in th eir numbers and if the numbers became too high, they were instructed to call their PCP. The patient was also informed that they could have facial flushing as a side effect of the injection, but this will pass. Follow-up will be PRN, or sooner if needed X-rays of the BODYPART which were obtained while in the office today and were reviewed by me, Jaz Rodriguez PA-C, revealed no acute fracture or dislocation. Orders: Orders XR hip LT min 2V Today M25.559 - Pain in unspecified hip Coding Level of Care Code New Pt Level 3 (88436) Diagnoses Greater trochanteric bursitis of left hip M70.62 CPT Codes Coding - Joint 7: 89762 - Glenohumeral/Tronchanteric Bursa/Intraarticular ([id number])
[2025-02-01 12:52] VITALS: BMI 43.7
== END 2025-02-01 13:11 | disposition home or self-care (01) ==
LOC: HO.HOS 12:35
PROVIDERS: PCP Student in an Organized Health Care Education/Training Program; Visit Provider Physician Assistant
DX: M70.62 Trochanteric bursitis, left hip (principal)
CPT/HCPCS: 20610; 99203

== ENCOUNTER → 2025-02-01 12:36 | Outpatient (BNV) | payer MEDICAID, SELFPAY | PROVIDERS: Visit Provider Nuclear Medicine | DX: M25.552 Pain in left hip (principal) | CPT/HCPCS: 73502 ==

== ENCOUNTER 2025-02-12 09:47 | Outpatient (REF) | payer MEDICAID, SELFPAY ==
--- NOTE | ~2025-02-12 | XR_ITS ---
EXAMINATION: XR THORACIC SPINE CLINICAL INFORMATION: R10.9 - Unspecified abdominal pain COMPARISON: None available. TECHNIQUE: 3 views of the thoracic spine were obtained. FINDINGS: There is no significant scoliosis. There is a normal thoracic kyphosis. There are no subluxations. There are no fractures, compression deformities, or suspicious bone lesions. There are bulky ventral flowing vertebral and disc osteophytes spanning the majority of the mid and inferior thoracic spine, findings suspicious for DISH. There is mild diffuse disc degeneration present. There is normal facet alignment. The imaged soft tissues, mediastinal structures, and lungs appear normal. XR/XR thoracic spine 2V IMPRESSION: 1. No acute findings of the thoracic spine. 2. Findings in keeping with DISH. Electronically signed by: Pedro Luis Justice MD 02/12/2025 11:13 AM EDT
--- NOTE | ~2025-02-12 | XR_ITS ---
EXAMINATION: XR LUMBOSACRAL SPINE CLINICAL INFORMATION: R10.9 - Unspecified abdominal pain; back pain. COMPARISON: None available. TECHNIQUE: Three views of the lumbosacral spine. FINDINGS: There is no significant scoliosis. There is a normal lordosis. There is no subluxation. Vertebral alignment is normal. There is no fracture, compression deformity, or suspicious bone lesion. There are mild degenerative disc changes throughout the lumbar region. There is normal facet alignment bilaterally. There are multilevel mild to moderate degenerative facet changes present. The SI joints and sacrum appear normal. The soft tissues appear normal. XR/XR lumbar spine 2-3V IMPRESSION: 1. No acute bony abnormalities. 2. Mild degenerative spondylosis of the lumbar spine. Electronically signed by: Pedro Luis Justice MD 02/12/2025 11:16 AM EDT
--- OUTSIDE RECORDS SUMMARY | 2025-02-12 10:26 | XMS_ITS | Clinical Summary ---
Author Organization [facility] Address [address] [place] [phone] Phone Care Team Providers Care Mirror Machine Feeder Name Role Phone Kayleen Arango MD Primary Care Provider [phone] Allergies Active Allergy Reactions Criticality Noted Date [...] Health Maintenance Due Date Last Done Comments Colorectal Cancer Screening: Colonoscopy 1972 Diabetes: Annual Foot Exam 1982 Diabetes: Annual Retina Eye Exam 1982 Hepatitis B Vaccines (1 of 3 - 19+ 3-dose series) 1991 Pneumococcal Vaccine: 50+ Years (1 of 2 - PCV) 1991 Cervical Cancer Screening: Pap Smear 1993 Breast Cancer Screening 09/15/2021 09/16/2019 HIV Screening 04/22/2022 Hepatitis C Screening 04/22/2022 [...] 12/02/2018 Cholesterol Screening (Lipid Panel) 12/16/2028 12/17/2023 RSV Immunization Adult Patients (1 - 1-dose 75+ series) 2047 HIB [...] mmol/L LAB CHEMISTRY METHOD 09/11/2024 11:56 AM [facility] Potassium 4.0 3.5 - 5.5 mmol/L LAB CHEMISTRY METHOD 09/11/2024 11:56 AM [facility] Chloride 101 96 - 110 mmol/L LAB CHEMISTRY METHOD 09/11/2024 11:56 AM [facility] CO2 30 21 - 32 mmol/L LAB CHEMISTRY METHOD 09/11/2024 11:56 AM [facility] Anion Gap 5 3 - 11 LAB CHEMISTRY METHOD 09/11/2024 11:56 AM [facility] Glucose 113(H) 70 - 100 mg/dL LAB CHEMISTRY METHOD 09/11/2024 11:56 AM [facility] BUN 14 5 - 25 mg/dL LAB CHEMISTRY METHOD 09/11/2024 11:56 AM [facility] Creatinine 0.90 0.50 - 1.10 mg/dL LAB CHEMISTRY METHOD 09/11/2024 11:56 AM [facility] eGFR 77 >=60 mL/min/1. 73m2 LAB CHEMISTRY METHOD 09/11/2024 11:56 AM [facility] Comment:Calculation based on the Chronic Kidney Disease Epidemiology Collaboration (CKD-EPI) equation refit without adjustment for race. BUN/Creatinine Ratio 15.6 LAB CHEMISTRY METHOD 09/11/2024 11:56 AM [facility] Calcium 9.7 8.5 - 10.5 mg/dL LAB CHEMISTRY METHOD 09/11/2024 11:56 AM [facility] AST (SGOT) 16 10 - 42 unit/L LAB CHEMISTRY METHOD 09/11/2024 11:56 AM [facility] ALT (SGPT) 29 10 - 60 unit/L LAB CHEMISTRY METHOD 09/11/2024 11:56 AM [facility] Alkaline Phosphatase 102 42 - 121 unit/L LAB CHEMISTRY METHOD 09/11/2024 11:56 AM [facility] Total Protein 7.4 6.0 - 8.0 g/dL LAB CHEMISTRY METHOD 09/11/2024 11:56 AM [facility] Albumin 3.8 3.2 - 5.0 g/dL LAB CHEMISTRY METHOD 09/11/2024 11:56 AM [facility] Total Bilirubin 0.5 0.0 - 1.4 mg/dL LAB CHEMISTRY METHOD 09/11/2024 11:56 AM [facility] Blood Venous blood specimen / Unknown Venipuncture / Unknown 09/11/2024 10:20 AM EDT 09/11/2024 11:21 AM EDT us Damian Aviles MD LAB BLOOD ORDERABLES Final Resu lt [facility] [address] [place] [address], from Last 3 Months or Most Recently Relevant to Health Maintenance Insurance MEDICAID - [place] Care Teams Mirror Machine Feeder Relationship Specialty Start Date End Date Kayleen Arango MD [address] [place] [address] PCP - General 07/05/14
--- OUTSIDE RECORDS SUMMARY | 2025-02-12 10:26 | XMS_ITS | Clinical Summary ---
Author Organization [facility] Address [address] [address] Phone Care Team Providers Care Social Research Assistant Name Role Phone Unavailable Primary Care Provider [...] ACO C3 ACO C3 ACO C3 ACO [facility] C3 ACO Additional Source Comments The information contained in this document represents components of the legal health record. It is not the complete legal health record.[facility]
--- OUTSIDE RECORDS SUMMARY | 2025-02-12 10:26 | XMS_ITS | Encounter Summary ---
Author Organization [employer] Address [address] [facility] 7t [place] [address] Care Team Providers Care Knot Picker Cloth Name Role Phone Kayleen Arango MD Primary Care Provider [phone] Reason for Visit * Reason Comments Med Refill Encounter Details Date Type Department Care Team ([facility] Contact Info) Description 02/09/2025 Refill [facility] CHC MED & PEDS [address] [place], [place] [phone] Cesar Hayden MD [address] [place] [address] Social History Tobacco Use Types Packs/Day Years [...] documented as of this encounter Care Teams Knot Picker Cloth Relationship Specialty Start Date End Date Kayleen Arango MD [address] [place] [address] PCP - General Family Medicine 06/23/13 documented as of this encounter
--- OUTSIDE RECORDS SUMMARY | 2025-02-12 10:26 | XMS_ITS | Clinical Summary ---
Author Organization [employer] Address [address] [facility] 7t [place] [address] Care Team Providers Care Appraisal Analyst Name Role Phone Kayleen Arango MD Primary Care Provider [phone] Allergies Active Allergy Reactions Criticality Noted Date [...] DAY NEEDED FOR WHEEZING/SHORT NESS OF BREATH 04/18/20 22 Active hydrALAZINE (Apresoline) [...] 24 Active Blood Glucose Monitoring Suppl (FreeStyle [place] Lite) w/Device kitIndications :New onset type 2 diabetes mellitus (HCC) Use to test blood sugar 2 times daily 1 kit 12/24/19 24 Active Alcohol Swabs 70 % padsIndication s:New onset type 2 diabetes mellitus (HCC) Use to test blood sugar 2 times [...] lancetsIndicat ions:New onset type 2 diabetes mellitus (HCC) USE 1 LANCET DIRECTED TWICE A DAY [...] BEDTIME 90 tablet 3 11/07/19 25 Active cyclobenzaprin e (Flexeril) 10 MG tablet Take 1 tablet [...] SPIT 90 tablet 3 12/16/19 25 Active metFORMIN (Glucophage) 500 MG tablet TAKE 1 TABLET BY MOUTH WITH BREAKFAST AND EVENING MEAL 180 tablet 12/23/19 25 Active Jardiance 10 MG TAKE 1 TABLET BY MOUTH EVERY DAY 30 tablet 11 01/07/20 25 Active FREESTYLE LITE test stripIndicatio ns:New onset type 2 diabetes mellitus (HCC) USE TO TEST BLOOD SUGAR 2 TIMES DAILY 100 strip 11 01/16/20 25 Active lidocaine (Lidoderm) 5 % patchIndicatio ns:Acute left-sided low back pain with left-sided sciatica APPLY 1 PATCH TOPICALLY ONCE PER DAY. REMOVE & DISCARD PATCH WITHIN 12 HOURS OR DIRECTED BY MD. 30 patch 1 02/05/20 25 Active ibuprofen 800 MG tablet TAKE 1 TABLET BY MOUTH EVERY 8 HOURS NEEDED FOR FEVER OR MODERATE PAIN 30 tablet 02/11/20 25 Active FREESTYLE LITE test stripIndicatio ns:New onset type 2 diabetes mellitus (HCC) Use to test blood sugar 2 times daily 100 each 12 12/24/19 24 025 Discontinued lidocaine (Lidoderm) 5 % patchIndicatio ns:Acute left-sided low back pain with left-sided sciatica Apply 1 patch topically Once per day. Remove & discard patch within 12 hours or as directed by . 30 patch 1 11/18/19 25 025 Discontinued ibuprofen 800 MG tablet TAKE 1 TABLET BY MOUTH EVERY 8 HOURS NEEDED FOR FEVER OR MODERATE PAIN 30 tablet 12/16/19 25 025 Discontinued Active Problems Problem Noted Date [...] for further evaluation Asthma 06/07/2022 Severe obesity (CMS/HCC) 06/07/2022 Primary hypertension 06/07/2022 Encounters Date Type Department Care Team Description 02/09/2025 Refill [facility] CHC MED & PEDS [address] [place] [address] Cesar Hayden MD 02/03/2025 Refill [facility] WALK-IN CENTER [address] [place] [phone] Tamiko Barrera MD Acute left-sided low back pain with left-sided sciatica 01/14/2025 Orders Only GENERIC EXTERNAL DATA DEPARTMENT Provider, Generic External Data 01/14/2025 Refill [facility] CH[facility] MED & PEDS [address] [place] [address] Michaela Ridley MD New onset type 2 diabetes mellitus (CMS/HCC) 01/05/2025 Refill [facility] CH[facility] MED & PEDS [address] [place] [address] Michaela Ridley MD 01/04/2025 1:20 PM EDT Office Visit [facility] WALK[facility] [address] [place] [address] Shikha Khan MD Acute severe exacerbation of moderate persistent asthma (Primary Dx); Viral URI 01/04/2025 Travel 12/20/2024 Refill [facility] CHC MED & PEDS [address] [place] [address] Kayleen Arango MD 12/13/2024 Refill [facility] MED & PEDS [address] [place] [address] Kayleen Arango MD Chronic bilateral thoracic back pain 12/01/2024 8:30 AM EDT Office Visit [facility] MED & PEDS [address] [place] [address] Kayleen Arango MD Left hip pain (Primary Dx); Type 2 diabetes mellitus without complication, without long-term current use of insulin ([facility]); Primary hypertension 12/01/2024 Travel 11/30/2024 Telephone [facility] MED & PEDS [address] [place] [address] Kayleen Arango MD Chart Prep 11/23/2024 Patient Outreach [facility] MEDICINE [address] [place] [phone] Diane Torres Pre-visit Planning (Pre visit planning LVM ) 11/19/2024 Telephone [facility] MEDICINE [address] [place] [phone] Kayleen Arango MD Nurse Triage 11/17/2024 9:40 AM EDT Office Visit [facility] WALK-IN CENTER [address] [place], [place] [phone] Tamiko Barrera MD Acute left-sided low back pain with left-sided sciatica 11/17/2024 Travel from Last 3 Months Immunizations Immunization Administration [...] Screening 12/20/2023 12/19/2022 Lipid Panel 12/16/2024 12/17/2023, 09/10, 04/20/2021, Additional history exists COVID-19 Vaccine ( [...] complication, without long-term current use of insulin ([facility]) POCT GLUCOSE Routine 12/01/2024 9:27 AM EDT Type 2 diabetes mellitus without complication, without long-term current use of insulin ([facility]) LIPID PANEL, STANDARD Routine 12/17/2023 8:55 AM EDT Primary hypertension BI MAMMOGRAM DIAGNOSTIC BILATERAL Routine 09/16/2019 10:49 AM EDT from Last 3 Months or Most Recently Relevant to Health Maintenance Results * Glucose, Whole Blood (01/14/2025 12:53 PM EDT) [facility] Glucose, Whole Blood 83 60 - 115 mg/dL [facility] Comment:METER #: [id number] Testing performed in the Endocrinology Department [address] , [address], [facility]. 01/14/2025 12:5 3 PM EDT 01/14/2025 12:56 PM EDT us Generic External Data Provider LAB BLOOD ORDERAB LES Final Result [facility] [address] [place] [phone] * Influenza B (ID NOW Rapid Molecular) (01/04/2025 1:13 PM EDT) Influenza B Negative Negative, Indeterminate [facility] Swab 01/04/2025 1:13 PM EDT Shikha Khan MD POINT OF CARE TEST ENTER/EDIT ORDERABLES Final Result Performing Organization Address [facility]/ZIP Co de Phone Number [facility] [address] [place] [phone] * Influenza A (ID NOW Rapid Molecular) (01/04/2025 1:13 PM EDT) Influenza A Negative Negative, Indeterminate [facility] Swab 01/04/2025 1:13 PM EDT Shikha Khan MD POINT OF CARE TEST ENTER/EDIT ORDERABLES Final Result Performing Organization Address [facility]/ZIP Co de Phone Number [facility] [address] [place] [phone] * POCT Rapid COVID Ag (01/04/2025 1:13 PM EDT) Rapid COVID Ag Negative [facility] Swab 01/04/2025 1:13 PM EDT Shikha Khan MD POINT OF CARE TEST ENTER/EDIT ORDERABLES Final Result Performing Organization Address [facility] Co de Phone Number [facility] [address] [place] [phone] * (ABNORMAL) POCT A1C (12/01/2024 9:28 AM EDT) Hemoglobin A1C 5.8(A) 4.0 - 5.7 % QC Media Lot # Comment:[id number] Lot# Expiration Date Comment:07/21/2026 Blood 12/01/2024 9:28 AM EDT Kayleen Arango MD POINT OF CARE TEST ENTER/EDIT OR DERABLES Final Result * POCT glucose manually resulted (12/01/2024 9:27 AM EDT) Glucose Blood, POC 132 60 - 200 mg/dL QC Media Lot # Comment:[id number] Lot# Expiration Date Comment:03/11/2025 Blood Capillary blood specimen / Unknown 12/01/2024 9:27 AM EDT Kayleen Arango MD POINT OF CARE TEST ENTER/EDIT OR DERABLES Final Result * (ABNORMAL) Lipid Panel, Standard (12/17/2023 8:55 AM EDT) Triglycerides 200(H) <150 mg/dL [facility] Comment:Desirable Triglyceri de: less than 150 mg/dLBorderline High Triglyceride 150-199 mg/dLHigh Triglyceride: 200-499 mg/dLVery High Triglyceride: greater than or equal to 5OO mg/dL Cholesterol 226(H) <200 mg/dL [facility] Comment:Desirable Cholestero l: less than 200 mg/dLBorderline High Cholesterol: 200-239 mg/dLHigh Cholesterol: greater than 239 mg/dL LDL Cholesterol Calculated 148(H) <100 mg/dL [facility] Comment:Desirable LDL: less than 100 mg/dLNear Optimal/Above Optimal LDL: 110- 129 mg/dLBorderline High LDL: 130-159 mg/dLHigh LDL: 160-189 mg/dLVery High LDL: greater than or equal to 190 mg/dL HDL Cholesterol 38(L) >40 mg/dL [facility] Comment:Desirable HDL: great er than 40 mg/dL Note: This HDL assay may give artificially low results in patients with liver disease. Blood Venous blood specimen / Unknown 12/17/2023 8:55 AM EDT 12/17/2023 2:02 PM EDT Kayleen Arango MD LAB BLOOD ORDERABLES Final Resul t [facility] [address] [place] [phone] * 3D BILATERAL DIAGN MAMMO 1 [...] to Health Maintenance Insurance C3 Care Teams Appraisal Analyst Relationship Specialty Start Date End Date Kayleen Arango MD [address] [place] [address] [place] [address] PCP - General Family Medicine 06/23/13
--- OUTSIDE RECORDS SUMMARY | 2025-02-12 10:27 | XMS_ITS | Encounter Summary ---
Author Organization [facility] Address [address] [facility] [address] [place] [phone] Phone Care Team Providers Care Wound Care Nurse Name Role Phone Unavailable Primary Care Provider Unavailabl e Encounter Details Date Type Department Care Team (Late st Contact Info) Description 11/05/2019 Ancillary Orders [facility] [address] [place] [address] [place] [address] Jon Lindo, [address] [address] Palpitations Social History Tobacco Use Types Packs/Day [...] It is not the complete legal health record.[facility]
--- OUTSIDE RECORDS SUMMARY | 2025-02-12 10:27 | XMS_ITS | Encounter Summary ---
Author Organization [employer] Address [address] [facility] [address]t [place] [address] Care Team Providers Care Fagot Maker Name Role Phone Kayleen Arango MD Primary Care Provider [phone] Reason for Visit * Reason Onset Date Comments Nurse Triage 10/18/2023 Encounter Details Date Type Department Care Team ([facility] st Contact Info) Description 10/18/2023 Telephone [facility] MEDICINE [address] [place] [address] Kayleen Arango MD [address] [place] [address] Nurse Triage Social History Tobacco Use Types [...] past 12 months, has t he electric, [employer], oil or water [employer] threatened to shut off services in your [...] Triage call returned to patient with pacific [employer] [id number] patient was seen in [facility] and treated for hand injury. Has been [...] The caller accepted this outcome Patient speaks latvian and was seen on 10/15 for this symptoms and is not getting any better documented in this encounter Plan of Treatment Not on file documented as of this encounter Visit Diagnoses Not on filedocumented in this encounter Additional Health Concerns Assessment Noted Time PHQ-9 Depression Total Score: 0 12/20/19 23 9:29 AM EDT documented as of this encounter Care Teams Fagot Maker Relationship Specialty Start Date End Date Kayleen Arango MD [address] [place] [phone] PCP - General Family Medicine 06/23/13 documented as of this encounter
--- OUTSIDE RECORDS SUMMARY | 2025-02-12 10:27 | XMS_ITS | Encounter Summary ---
Author Organization [employer] Address [address] [facility] [address]t [place] [address] Care Team Providers Care Accounting Specialist Name Role Phone Kayleen Arango MD Primary Care Provider [phone] Encounter Details Date Type Department Care Team ([facility] Contact Info) Description 09/11/2024 Orders Only [facility] [address] [place] [address] Provider, MD [place] Social History Tobacco Use [...] documented as of this encounter Care Teams Accounting Specialist Relationship Specialty Start Date End Date Kayleen Arango MD [address] [place] [phone] PCP - General Family Medicine 06/23/13 documented as of this encounter
--- OUTSIDE RECORDS SUMMARY | 2025-02-12 10:27 | XMS_ITS | Encounter Summary ---
Author Organization [employer] Address [address] [facility] 7t [place] [address] Care Team Providers Care Furnace Builder Name Role Phone Kayleen Arango MD Primary Care Provider [phone] Reason for Visit * Reason Onset Date Comments Nurse Triage 12/31/2023 Encounter Details Date Type Department Care Team ([facility] st Contact Info) Description 12/31/2023 Telephone [facility] MEDICINE [address] [place] [address] Kayleen Arango MD [address] [place] [address] Nurse Triage Social History Tobacco Use Types [...] past 12 months, has t he electric, [employer], [employer] or water ev-[employer] threatened to shut off services in your [...] documented as of this encounter Care Teams Furnace Builder Relationship Specialty Start Date End Date Kayleen Arango MD [address] [place] [phone] PCP - General Family Medicine 06/23/13 documented as of this encounter
--- OUTSIDE RECORDS SUMMARY | 2025-02-12 10:27 | XMS_ITS | Encounter Summary ---
Author Organization [employer] Address [address] [facility] [address] [place] [address] Care Team Providers Care Landscape Foreman Name Role Phone Kayleen Arango MD Primary Care Provider [phone] Reason for Visit * Reason Onset Date Comments Appointment Request 06/27/2023 Encounter Details Date Type Department Care Team ([facility] Contact Info) Description 06/27/2023 Telephone [facility] CHC MED & PEDS [address] [place], [place] [phone] Kayleen Arango MD [address] [place] [address] Appointment Request Social History Tobacco Use Types [...] her current diagnostics. Please contact pt @ [phone] Occitan Speaker documented in this encounter Plan of Treatment Not on file documented as of this encounter Visit Diagnoses Not on filedocumented in this encounter Additional Health Concerns Assessment Noted Time PHQ-9 Depression Total Score: 0 12/20/19 23 9:29 AM EDT documented as of this encounter Care Teams Landscape Foreman Relationship Specialty Start Date End Date Kayleen Arango MD [address] [place] [phone] PCP - General Family Medicine 06/23/13 documented as of this encounter
[2025-02-12 10:41] LABS: Hematocrit 41.4 % (37.0-47.0); Hemoglobin 13.5 g/dl (12.0-16.0); Imm Gran Abs Auto 0.02 X10*3/uL (0.00-0.03); Imm Gran Pct Auto 0.3 % (0.0-0.4); Lymphocytes Absolute Auto 1.6 X10*3/uL (1.2-4.9); MANUAL DIFF FLAG SCAN; Mean Corpuscular HGB Conc 32.6 g/dl (31.0-35.0); Mean Corpuscular Hemoglobin 26.7 pg (27.0-33.0); Mean Corpuscular Volume 81.8 fL (80.0-98.0); NRBC Abs Auto 0.000 X10*3/uL (0.0-0.012); NRBC Pct Auto 0.0 /100WBC (0.0-0.2); PLT CLUMP 1; Red Blood Count 5.06 X10*6/uL (4.20-5.50); SCAN SMEAR FLAG 1
[2025-02-12 10:50] LABS: White Blood Count 7.8 X10*3/uL (4.8-10.8)
[2025-02-12 11:13] LABS: Appearance Urine Clear; Glucose Urine UA >=1000 mg/dL (Negative); PH 5.5 (5.0-9.0); Specific Gravity - Urine >= 1.030 (1.005-1.025); UMIC TRIGGER UACC YES
[2025-02-12 11:25] LABS: Platelet Count 189 X10*3/uL (160-400)
[2025-02-12 11:31] LABS: Alanine Aminotransferase 17 U/L (0-31); Albumin Level 4.3 g/dL (3.5-5.0); Alkaline Phosphatase 73 U/L (39-117); Anion Gap 13 (12-20); Aspartate Amino Transferase 28 U/L (5-31); Blood Urea Nitrogen 10 mg/dL (9-16); Calcium 9.4 mg/dL (8.4-10.2); Carbon Dioxide 24 mmol/L (22-29); Chloride 106 mmol/L (96-108); Estimated Glomerular Filt Rate > 60; Potassium 3.9 mmol/L (3.3-5.1); Sodium 139 mmol/L (135-145); Total Protein 7.3 g/dL (6.5-8.0)
== END 2025-02-12 09:48 | disposition home or self-care (01) ==
LOC: HO.LAB 09:47
PROVIDERS: PCP Student in an Organized Health Care Education/Training Program; Visit Provider Nurse Practitioner
DX: M54.6 Pain in thoracic spine (principal); R10.9 Unspecified abdominal pain
CPT/HCPCS: 36415; 72070; 72100; 80053; 81001; 81003; 84443; 85025

== ENCOUNTER → 2025-02-12 10:28 | Outpatient (BNV) | payer MEDICAID, SELFPAY | PROVIDERS: PCP Student in an Organized Health Care Education/Training Program; Visit Provider Radiology Diagnostic Radiology | DX: M47.816 Spondylosis without myelopathy or radiculopathy, lumbar region (principal); M48.14 Ankylosing hyperostosis [Forestier], thoracic region | CPT/HCPCS: 72070; 72100 ==

== ENCOUNTER 2025-02-18 14:10 | Outpatient (AMB) | payer MEDICAID, SELFPAY ==
--- NOTE | 2025-02-18 14:30 | A.OFFVIS_ITS ---
Vital Signs 02/18/25 14:31 Height 5 ft 7 in Weight 272 lb BMI 42.6 BP 112/59 L Blood Pressure Location Lt brachial Position Sitting Pulse 81 Pulse Oximetry (%) 98 Oxygen Delivery Method Room Air Intake Visit Reasons: 1 mos FUV. Intake Note: Patient one month follow up. Patient cc: acid reflux on and off. Denies any other GI issues for today visit. Pharmacy Operations Coordinator Required: Yes Accompanied by: Self / Same As Patient Allergies morphine Allergy (Unknown, Verified 02/18/25 14:30) Anaphylaxis Iodinated Contrast Media (IV Contrast Dye) Allergy (Verified 02/18/25 14:30) Anaphylaxis metformin Adverse Reaction (Severe, Verified 02/18/25 14:30) Diarrhea HPI HPI 1 mos FUV.: Details: Assessment & Plan (1) Flank pain: Code(s): R10.9 - Unspecified abdominal pain Category: Medical (2) Thoracic back pain: Code(s): M54.6 - Pain in thoracic spine Category: Medical Plan Greek #Kerry Live Patient is on Ozempic. - The patient is a 54-year-old female presenting with chronic right flank pain. - Described as pressure-like, is persistent throughout the day but worsens towards the evening. It is not related to eating or moving her bowels. It is somewhat better lying flat on her back or sitting still but is greatly worsened if she causes her turns in bed. In his greatly relieved by pain medications such as Motrin, meloxicam combined with Tylenol, but the pain will immediately return if she does not take them daily. She denies any associated symptoms such as nausea vomiting constipation diarrhea or severe unintended weight loss. - Previous ultrasound suggested fatty liver, but CT and normal blood work refuted this finding. - she had concerns about liver problems, while a ultrasound suggested hepatomegaly a subsequent CAT scan showed normal liver and her transaminases and remaining liver panels are completely normal. I reassure her that she does not have any sustained liver problems. -she does have chest x-rays and thoracic spine x-rays in the past showing significant osteoarthritis of the thoracic spine with disc space narrowing and osteophytes. To date there has been no GI causes identified specifically there has been no gallstones, no abnormality of the pancreas her GI tract, and a negative HIDA scan. This leads me to severely doubt if this is actually a GI problem and is likely more of a musculoskeletal problem. This is especially supported by the fact that it is relieved by NSAIDs and not worsened by these medications. -we can consider getting an EGD but I really feel this would be noninformative. For now I think we should get fresh x-rays of her lumbar and thoracic spine combined with some more recent lab work and a thyroid. We will also get a urinalysis to see if nephrolithiasis is in the differential. Going forward she likely will need an MRI to get more definitive answers. For now I will hold off on ordering the EGD and we will see what these studies bring. Return office visit in 4 weeks Orders: Orders Complete Blood Count Auto Diff Today M54.6 - Pain in thoracic spine, R10.9 - Unspecified abdominal pain TSH reflex Free T4 Today M54.6 - Pain in thoracic spine, R10.9 - Unspecified abdominal pain XR lumbar spine 2-3V Today M54.6 - Pain in thoracic spine, R10.9 - Unspecified abdominal pain Comprehensive Met. Panel Today M54.6 - Pain in thoracic spine, R10.9 - Unspecified abdominal pain XR thoracic spine 2V Today M54.6 - Pain in thoracic spine, R10.9 - Unspecified abdominal pain UA CC w/rflx Micro + Cult Today R10.9 - Unspecified abdominal pain LABS Laboratory Tests 02/12/25 10:21 WBC 7.8 Hgb 13.5 Hct 41.4 Plt Count 189 Estimated GFR > 60 Total Bilirubin 0.5 AST 28 ALT 17 Alkaline Phosphatase 73 TSH 0.87 XR THORACIC AND LUMBAR SPINE FINDINGS: There is no significant scoliosis. There is a normal lordosis. There is no subluxation. Vertebral alignment is normal. There is no fracture, compression deformity, or suspicious bone lesion. There are mild degenerative disc changes throughout the lumbar region. There is normal facet alignment bilaterally. There are multilevel mild to moderate degenerative facet changes present. The SI joints and sacrum appear normal. The soft tissues appear normal. XR/XR lumbar spine 2-3V IMPRESSION: 1. No acute bony abnormalities. 2. Mild degenerative spondylosis of the lumbar spine. FINDINGS: There is no significant scoliosis. There is a normal thoracic kyphosis. There are no subluxations. There are no fractures, compression deformities, or suspicious bone lesions. There are bulky ventral flowing vertebral and disc osteophytes spanning the majority of the mid and inferior thoracic spine, findings suspicious for DISH. There is mild diffuse disc degeneration present. There is normal facet alignment. The imaged soft tissues, mediastinal structures, and lungs appear normal. XR/XR thoracic spine 2V IMPRESSION: 1. No acute findings of the thoracic spine. 2. Findings in keeping with DISH. TODAYS VISIT Syriac # PFSH Medical History Metabolic dysfunction-associated fatty liver disease (MAFLD) HTN (hypertension) HLD (hyperlipidemia) Obesity Diabetes mellitus Subclinical hyperthyroidism Surgical History History of surgery on lower extremity History of laparoscopic appendectomy H/O tubal ligation Family History Mother Hypertension Thyroid crisis High cholesterol Heart problem Father Heart problem Paternal Uncle Lung cancer Maternal Aunt Skin cancer Cancer Social History Alcohol intake: never Patient Tobacco Use Status: Never used Tobacco Physical Exam Vital Signs: Last Vital Signs Pulse 81 02/18/25 14:31 BP 112/59 L 02/18/25 14:31 Pulse Ox 98 02/18/25 14:31 Oxygen Delivery Method Room Air 02/18/25 14:31 BMI result Body Mass Index 42.6 Results Reviewed Results Reviewed: Laboratory Tests 02/12/25 10:21 WBC 7.8 Hgb 13.5 Hct 41.4 Plt Count 189 Estimated GFR > 60 Total Bilirubin 0.5 AST 28 ALT 17 Alkaline Phosphatase 73 TSH 0.87 XR THORACIC AND LUMBAR SPINE FINDINGS: There is no significant scoliosis. There is a normal lordosis. There is no subluxation. Vertebral alignment is normal. There is no fracture, compression deformity, or suspicious bone lesion. There are mild degenerative disc changes throughout the lumbar region. There is normal facet alignment bilaterally. There are multilevel mild to moderate degenerative facet changes present. The SI joints and sacrum appear normal. The soft tissues appear normal. XR/XR lumbar spine 2-3V IMPRESSION: 1. No acute bony abnormalities. 2. Mild degenerative spondylosis of the lumbar spine. FINDINGS: There is no significant scoliosis. There is a normal thoracic kyphosis. There are no subluxations. There are no fractures, compression deformities, or suspicious bone lesions. There are bulky ventral flowing vertebral and disc osteophytes spanning the majority of the mid and inferior thoracic spine, findings suspicious for DISH. There is mild diffuse disc degeneration present. There is normal facet alignment. The imaged soft tissues, mediastinal structures, and lungs appear normal. XR/XR thoracic spine 2V IMPRESSION: 1. No acute findings of the thoracic spine. 2. Findings in keeping with DISH. Assessment & Plan Assessment & Plan (1) DISH (diffuse idiopathic skeletal hyperostosis): Comment: 02/2025 Xr Code(s): M48.10 - Ankylosing hyperostosis [[facility]], site unspecified Category: Medical Plan Syriac # Her GI regimen consists of omeprazole 20 mg daily. - The patient is a 54 year old female presenting with chronic right flank pain. - She reports significant relief of the pain with NSAIDs, particularly Motrin. - Diagnosis efforts have included extensive testing without findings of significant infectious markers. - Imaging results indicate mild degenerative spinal changes with disc osteophytes, lacking significant stenosis or facet changes. - A suspicion of a musculoskeletal disorder with possible autoimmune involvement exists. - Current gastrointestinal symptoms include diarrhea, which may relate to Ozempic usage. DISH SYNDROME - Refer to pain management for managing symptoms. - Order blood tests for rheumatology including rheumatoid factor and CCP. - Continue taking Motrin for chronic right flank pain as long as it doesn't upset your stomach. - Monitor diarrhea symptoms and inform me if they worsen or become intolerable. - Follow up for blood work to evaluate possible autoimmune conditions. - Attend pain management referral and physical therapy as recommended. - Return in eight weeks for follow-up to discuss test results and symptom progression. Orders: Orders Erythrocyte Sedimentation Rate 02/23/25 M48.10 - Ankylosing hyperostosis [[facility]], site unspecified Rheumatoid Factor 02/23/25 M48.10 - Ankylosing hyperostosis [[facility]], site u nspecified Cyclic Citrullinated Peptide 02/23/25 M48.10 - Ankylosing hyperostosis [[facility]], site unspecified RAMIRO Reflex Titer and Pattern 02/23/25 M48.10 - Ankylosing hyperostosis [[facility]], site unspecified C Reactive Protein 02/23/25 M48.10 - Ankylosing hyperostosis [[facility]], site unspecified Referrals Pain Management Referral M48.10 - Ankylosing hyperostosis [[facility]], site unspecified Coding Level of Care Code Est Pt Level 4 (96264) Diagnoses DISH (diffuse idiopathic skeletal hyperostosis) M48.10 Time Spent (min) 37
[2025-02-18 14:31] VITALS: BP 112/59; PULSE 81; O2SAT 98; BMI 42.6
== END 2025-02-18 15:48 | disposition home or self-care (01) ==
LOC: HO.HGI 14:10
PROVIDERS: PCP Student in an Organized Health Care Education/Training Program; Visit Provider Nurse Practitioner
DX: M48.10 Ankylosing hyperostosis [Forestier], site unspecified (principal)
CPT/HCPCS: 99214

== ENCOUNTER → 2025-02-18 14:10 | Outpatient (BNVA) | payer MEDICAID, SELFPAY | PROVIDERS: PCP Student in an Organized Health Care Education/Training Program; Visit Provider Nurse Practitioner | DX: R10.9 Unspecified abdominal pain (principal); M54.6 Pain in thoracic spine; G89.29 Other chronic pain; M48.16 Ankylosing hyperostosis [Forestier], lumbar region; Z79.1 Long term (current) use of non-steroidal anti-inflammatories (NSAID) | CPT/HCPCS: 99212 ==

== ENCOUNTER 2025-02-23 09:15 | Outpatient (REF) | payer MEDICAID, SELFPAY ==
--- OUTSIDE RECORDS SUMMARY | 2025-02-23 10:07 | XMS_ITS | Encounter Summary ---
Author Organization [employer] Address [address] [facility] [address] [place] [address] Care Team Providers Care Supervisor Char House Name Role Phone Kayleen Arango MD Primary Care Provider [phone] Reason for Visit * Reason Onset Date Comments Nurse Triage 10/18/2023 Encounter Details Date Type Department Care Team ([facility] st Contact Info) Description 10/18/2023 Telephone [facility] MED[facility] [address] [place] [address] Kayleen Arango MD [address] [place] [address] Nurse Triage Social History Tobacco Use Types [...] EDT Triage call returned to patient with [place] Director Employee Communications [id number] patient was seen in [facility] and treated for hand injury. Has [...] The caller accepted this outcome Patient speaks kiswahili and was seen on 10/15 for this symptoms and is not getting any better documented in this encounter Plan of Treatment Upcoming Encounters Date Type Department Care Team (Late st Contact Info) Description 03/03/2025 8:45 AM EDT Office Visit [facility] PEDS [address] [place] [address] Kayleen Arango MD [address] [place] [address] documented as of this encounter Visit Diagnoses Not on filedocumented in this encounter Additional Health Concerns Assessment Noted Time PHQ-9 Depression Total Score: 0 12/20/19 23 9:29 AM EDT documented as of this encounter Care Teams Supervisor Char House Relationship Specialty Start Date End Date Kayleen Arango MD [address] [place] [id number] PCP - General Family Medicine 06/23/13 documented as of this encounter
--- OUTSIDE RECORDS SUMMARY | 2025-02-23 10:07 | XMS_ITS | Clinical Summary ---
Author Organization [facility] Address [address] [address] Phone Care Team Providers Care Ski Guide Name Role Phone Unavailable Primary Care Provider [...] ACO C3 ACO C3 ACO C3 ACO [facility] C3 ACO Additional Source Comments The information contained in this document represents components of the legal health record. It is not the complete legal health record.[facility]
--- OUTSIDE RECORDS SUMMARY | 2025-02-23 10:07 | XMS_ITS | Encounter Summary ---
Author Organization [facility] Address [address] [facility] [address] [place] [phone] Phone Care Team Providers Care Underwriting Service Representative Name Role Phone Unavailable Primary Care Provider Unavailabl e Encounter Details Date Type Department Care Team (Late st Contact Info) Description 11/05/2019 Ancillary Orders [facility] [address] [place] [address] [place] [address] Jon Lindo, [address] [address] Palpitations Social History Tobacco Use Types Packs/Day [...] It is not the complete legal health record.[facility]
--- OUTSIDE RECORDS SUMMARY | 2025-02-23 10:07 | XMS_ITS | Encounter Summary ---
Author Organization [employer] Address [address] [facility] 7[address] [place] [address] Care Team Providers Care Photographic Equipment Inspector Name Role Phone Kayleen Arango MD Primary Care Provider [phone] Encounter Details Date Type Department Care Team ([facility] st Contact Info) Description 09/11/2024 Orders Only [facility] [address] [place] [address] Provider, MD [place] Social History Tobacco Use [...] as of this encounter Plan of Treatment Upcoming Encounters Date Type Department Care Team (Late st Contact Info) Description 03/03/2025 8:45 AM EDT Office Visit [facility] MED & PEDS [address] [place] [address] Kayleen Arango MD [address] [place] [address] documented as of this encounter Procedures Procedure [...] documented as of this encounter Care Teams Photographic Equipment Inspector Relationship Specialty Start Date End Date Kayleen Arango MD [address] [place] [id number] PCP - General Family Medicine 06/23/13 documented as of this encounter
--- OUTSIDE RECORDS SUMMARY | 2025-02-23 10:07 | XMS_ITS | Clinical Summary ---
Author Organization [employer] Address [address] [facility] 7[address] [place] [address] Care Team Providers Care Auto Top Mechanic Name Role Phone Kayleen Arango MD Primary Care Provider [phone] Allergies Active Allergy Reactions Criticality Noted Date [...] 24 Active Blood Glucose Monitoring Suppl (FreeStyle Warwick Lite) w/Device kitIndications :New onset type 2 [...] MODERATE PAIN 30 tablet 02/11/20 25 Active lidocaine (Lidoderm) 5 % patchIndicatio ns:Acute left-sided low back pain with left-sided sciatica Apply 1 patch topically Once per day. Remove & discard patch within 12 hours or as directed by MD. 30 patch 1 11/18/19 25 025 Discontinued [...] for further evaluation Asthma 06/07/2022 Severe obesity ([facility]/HCC) 06/07/2022 Primary hypertension 06/07/2022 Encounters Date Type Department Care Team Description 02/12/2025 Orders Only GENERIC EXTERNAL DATA DEPARTMENT Provider, Generic External Data 02/09/2025 Refill [facility] [address] [place] [address] Cesar Hayden MD 02/03/2025 Refill [facility] [address] [place] [phone] Tamiko Barrera MD Acute left-sided low back pain with left-sided sciatica 01/14/2025 Orders Only GENERIC EXTERNAL DATA DEPARTMENT Provider, Generic External Data 01/14/2025 Refill [facility] [address] [place] [address] Michaela Ridley MD New onset type 2 diabetes mellitus ([facility]) 01/05/2025 Refill [facility] [address] [place] [address] Michaela Ridley MD 01/04/2025 1:20 PM EDT Office Visit [facility] [address] [place] [address] Shikha Khan MD Acute severe exacerbation of moderate persistent asthma (Primary Dx); Viral URI 01/04/2025 Travel 12/20/2024 Refill [facility] [address] [place] [address] Kayleen Arango MD 12/13/2024 Refill [facility] [address] [place] [address] Kayleen Arango MD Chronic bilateral thoracic back pain 12/01/2024 8:30 AM EDT Office Visit [facility] [address] [place] [address] Kayleen Arango MD Left hip pain (Primary Dx); Type 2 diabetes mellitus without complication, without long-term current use of insulin ([facility]); Primary hypertension 12/01/2024 Travel 11/30/2024 Telephone [facility] [address] [place] [address] Kayleen Arango MD Chart Prep 11/23/2024 Patient Outreach [facility] [address] [place] [address] Diane Torres Pre-visit Planning (Pre visit planning LVM ) from Last 3 Months Immunizations Immunization Administration [...] 12/01/2024 9:18 AM EDT Plan of Treatment Upcoming Encounters Date Type Department Care Team (Late st Contact Info) Description 03/03/2025 8:45 AM EDT Office Visit [facility] [address] [place] [address] Kayleen Arango MD [address] [place] [address] Health Maintenance Due Date Last Done Comments [...] Procedure Name Priority Date/Time Associated Diagnosis Comments XR THORACIC SPINE 2 VIEWS Routine 02/12/2025 10:57 AM EDT XR LUMBAR SPINE 2-3 VIEWS Routine 02/12/2025 10:56 AM EDT TSH W/REFLEX TO FT4 Routine 02/12/2025 1 0:21 AM EDT COMPREHENSIVE METABOLIC PANEL Routine 02/12/2025 10:21 AM EDT SLIDE REVIEW Routine 02/12/2025 10:21 AM EDT CBC WITH AUTO DIFFERENTIAL Routine 02/12/2025 10:21 AM EDT URINALYSIS, COMPLETE, WITH REFLEX TO CULTURE Routine 02/12/2025 10:12 AM EDT GLUCOSE, WHOLE BLOOD Routine 01/14/2025 12:53 PM [...] complication, without long-term current use of insulin (CMS/HCC) POCT GLUCOSE Routine 12/01/2024 9:27 AM EDT Type 2 diabetes mellitus without complication, without long-term current use of insulin (CMS/HCC) LIPID PANEL, STANDARD Routine 12/17/2023 8:55 AM EDT Primary hypertension BI MAMMOGRAM DIAGNOSTIC BILATERAL Routine 09/16/2019 10:49 AM EDT from Last 3 Months or Most Recently Relevant to Health Maintenance Results * XR Thoracic Spine 2 Views (02/12/2025 10:57 AM EDT) Anatomical Region Laterality Modality Spine, T-spine Radiographic Marcia ging 02/12/2025 10:5 7 AM EDT Narrative 02/12/2025 11:16 AM EDT [address] [address] XRay Report Signed Patient: Yen Shaw MR#: [id number] : 1970 Acct:[id number] Age/Sex: 54 / F ADM Date: 02/12/25 Loc: HO.LAB Attending Dr: Lili CUELLAR Ordering Physician: Lili Jamil Date of Service: 02/12/25 Procedure(s): XR thoracic spine 2V Accession Number(s): [id number] cc: Lili Jamil; Kayleen Arango MD Reason for Exam: R10.9 - Unspecified abdominal pain EXAMINATION: XR THORACIC SPINE CLINICAL INFORMATION: R10.9 - Unspecified abdominal pain COMPARISON: None available. TECHNIQUE: 3 views of the thoracic spine were obtained. FINDINGS: There is no significant scoliosis. There is a normal thoracic kyphosis. There are no subluxations. There are no fractures, compression deformities, or suspicious bone lesions. There are bulky ventral flowing vertebral and disc osteophytes spanning the majority of the mid and inferior thoracic spine, findings suspicious for DISH. There is mild diffuse disc degeneration present. There is normal facet alignment. The imaged soft tissues, mediastinal structures, and lungs appear normal. XR/XR thoracic spine 2V IMPRESSION: 1. No acute findings of the thoracic spine. 2. Findings in keeping with DISH. Electronically signed by: Pedro Luis Justice MD 02/12/2025 11:13 AM EDT Dictated By: Pedro Luis Justice MD Signed By: <Electronically signed by Pedro Luis Justice MD in OV> 02/12/25 1113 DD/ 1057 TD/TT: 02/12/25 1103 Railroad Yard Worker: Procedure Note Donotuseinterpreter, Image - 02/12/[address] [address] XRay Report Signed Patient: Yen Shaw EMR#: [id number] : 1970Acct:[id number] Age/Sex: 54 / FADM Date: 02/12/25 Loc: HO.LAB Attending Dr: Lili CUELLAR Ordering Physician: Lili Jamil Date of Service: 02/12/25 Procedure(s): XR thoracic spine 2V Accession Number(s): [id number] cc: Lili Jamil; Kayleen Arango MD Reason for Exam: R10.9 - Unspecified abdominal pain EXAMINATION: XR THORACIC SPINE CLINICAL INFORMATION: R10.9 - Unspecified abdominal pain COMPARISON: None available. TECHNIQUE: 3 views of the thoracic spine were obtained. FINDINGS: There is no significant scoliosis. There is a normal thoracic kyphosis. There are no subluxations. There are no fractures, compression deformities, or suspicious bone lesions. There are bulky ventral flowing vertebral and disc osteophytes spanning the majority of the mid and inferior thoracic spine, findings suspicious for DISH. There is mild diffuse disc degeneration present. There is normal facet alignment. The imaged soft tissues, mediastinal structures, and lungs appear normal. XR/XR thoracic spine 2V IMPRESSION: 1. No acute findings of the thoracic spine. 2. Findings in keeping with DISH. Electronically signed by: Pedro Luis Justice MD 02/12/2025 11:13 AM EDT Dictated By: Pedro Luis Justice MD Signed By: <Electronically signed by Pedro Luis Justice MD in OV> 02/12/25 1113 DD/ 1057 TD/TT: 02/12/25 1103 Railroad Yard Worker: us [facility] External Provider IMG XR PROCEDURES Final Result * XR Lumbar Spine 2-3 Views (02/12/2025 10:56 AM EDT) Anatomical Region Laterality Modality Spine, L-spine Radiographic Marcia ging 02/12/2025 10:5 6 AM EDT Narrative 02/12/2025 11:18 AM EDT [address] [address] XRay Report Signed Patient: Yen Shaw MR#: [id number] : 1970 Acct:[id number] Age/Sex: 54 / F ADM Date: 02/12/25 Loc: HO.LAB Attending Dr: Lili CUELLAR Ordering Physician: Lili Jamil Date of Service: 02/12/25 Procedure(s): XR lumbar spine 2-3V Accession Number(s): [id number] cc: Lili Jamil; Kayleen Arango MD Reason for Exam: R10.9 - Unspecified abdominal pain EXAMINATION: XR LUMBOSACRAL SPINE CLINICAL INFORMATION: R10.9 - Unspecified abdominal pain; back pain. COMPARISON: None available. TECHNIQUE: Three views of the lumbosacral spine. FINDINGS: There is no significant scoliosis. There is a normal lordosis. There is no subluxation. Vertebral alignment is normal. There is no fracture, compression deformity, or suspicious bone lesion. There are mild degenerative disc changes throughout the lumbar region. There is normal facet alignment bilaterally. There are multilevel mild to moderate degenerative facet changes present. The SI joints and sacrum appear normal. The soft tissues appear normal. XR/XR lumbar spine 2-3V IMPRESSION: 1. No acute bony abnormalities. 2. Mild degenerative spondylosis of the lumbar spine. Electronically signed by: Pedor Luis Justice MD 02/12/2025 11:16 AM EDT Dictated By: Pedro Luis Justice MD Signed By: <Electronically signed by Pedro Luis Justice MD in OV> 02/12/25 1116 DD/ 1056 TD/TT: 02/12/25 1103 [employer] Yard Worker: Procedure Note Donotuseinterpreter, Image - 02/12/[address] [address] XRay Report Signed Patient: Yen Shaw EMR#: [id number] : 1970Acct:[id number] Age/Sex: 54 / FADM Date: 02/12/25 Loc: KODI.LAB Attending Dr: Lili CUELLAR Ordering Physician: Jamil,Lili ANP-C Date of Service: 02/12/25 Procedure(s): XR lumbar spine 2-3V Accession Number(s): [id number] cc: Loulou RAYO-C; Kayleen Arango MD Reason for Exam: R10.9 - Unspecified abdominal pain EXAMINATION: XR LUMBOSACRAL SPINE CLINICAL INFORMATION: R10.9 - Unspecified abdominal pain; back pain. COMPARISON: None available. TECHNIQUE: Three views of the lumbosacral spine. FINDINGS: There is no significant scoliosis. There is a normal lordosis. There is no subluxation. Vertebral alignment is normal. There is no fracture, compression deformity, or suspicious bone lesion. There are mild degenerative disc changes throughout the lumbar region. There is normal facet alignment bilaterally. There are multilevel mild to moderate degenerative facet changes present. The SI joints and sacrum appear normal. The soft tissues appear normal. XR/XR lumbar spine 2-3V IMPRESSION: 1. No acute bony abnormalities. 2. Mild degenerative spondylosis of the lumbar spine. Electronically signed by: Pedro Luis Justice MD 02/12/2025 11:16 AM EDT Dictated By: Pedro Luis Justice MD Signed By: <Electronically signed by Pedro Luis Justice MD in OV> 02/12/25 1116 DD/ 1056 TD/TT: 02/12/25 1103 Railroad Yard Worker: [facility] External Provider IMG XR PROCEDURES Final Result * Slide Review (02/12/2025 10:21 AM EDT) Slide Review VERIFIED [facility] 02/12/2025 10:2 1 AM EDT 02/12/2025 10:21 AM EDT Generic External Data Provider LAB BLOOD ORDERAB LES Final Result [facility] [address] [place] [phone] * TSH with Reflex to Free T4 (02/12/2025 10:21 AM EDT) Pathologist [facility] TSH reflex Free T4 0.87 0.32 - 4.0 uIU/mL [facility] 02/12/2025 10:2 1 AM EDT 02/12/2025 10:21 AM EDT us Generic External Data Provider LAB BLOOD ORDERAB LES Final Result Performing Organization Address City/State/[facility] Co de Phone Number [facility] [address] [place] [phone] * (ABNORMAL) CBC auto differential (02/12/2025 10:21 AM EDT) [facility] White Blood Count 7.8 4.8 - 10.8 X10*3/uL [facility] Red Blood Count 5.06 4.20 - 5.50 X10*6/uL [facility] Hemoglobin 13.5 12.0 - 16.0 g/dl [facility] Hematocrit 41.4 37.0 - 47.0 % [facility] Mean Corpuscular Volume 81.8 80.0 - 98.0 fL [facility] Mean Corpuscular Hemoglobin 26.7(L) 27.0 - 33.0 pg [facility] Mean Corpuscular HGB Conc 32.6 31.0 - 35.0 g/dl [facility] Red Cell Distribution Width 13.7 11.0 - 16.0 % [facility] Platelet Count 189 160 - 400 X10*3/uL [facility] Mean Platelet Volume 11.4 9.4 - 12.3 fL [facility] Neutrophils Percent Auto 70.6 45 - 73 % [facility] Imm Gran Pct Auto 0.3 0.0 - 0.4 % [facility] Lymphocytes Percent Auto 20.9 20 - 40 % [facility] Monocytes Percent Auto 6.6 2 - 11 % [facility] Eosinophils Percent Auto 1.3 0 - 4 % [facility] Basophils Percent Auto 0.3 0 - 2 % [facility] NRBC Pct Auto 0.0 0.0 - 0.2 /100WBC [facility] Neutrophils Absolute Auto 5.5 2.0 - 8.3 x10*3/uL [facility] Imm Gran Abs Auto 0.02 0.00 - 0.03 X10*3/uL [facility] Lymphocytes Absolute Auto 1.6 1.2 - 4.9 X10*3/uL [facility] Monocytes Absolute Auto 0.5 0.1 - 1.2 X10*3/uL [facility] Eosinophils Absolute Auto 0.1 0.0 - 0.4 X10*3/uL [facility] Basophils Absolute Auto 0.0 0.0 - 0.2 X10*3/uL [facility] NRBC Abs Auto 0.000 0.0 - 0.012 X10*3/uL [facility] 02/12/2025 10:2 1 AM EDT 02/12/2025 10:21 AM EDT us Generic External Data Provider LAB BLOOD ORDERAB LES Edited Result - Final [facility] [address] [place], [place] [phone] * (ABNORMAL) Comprehensive Metabolic Panel (02/12/2025 10:21 AM EDT) Sodium 139 135 - 145 mmol/L [facility] Potassium 3.9 3.3 - 5.1 mmol/L [facility] Comment:Slight Hemolysis.Int erpret result with caution. Chloride 106 96 - 108 mmol/L [facility] Carbon Dioxide 24 22 - 29 mmol/L [facility] Anion Gap 13 12 - 20 [facility] Urea Nitrogen (BUN) 10 9 - 16 mg/dL [facility] Creatinine, Serum 0.92 0.5 - 1.4 mg/dL [facility] Estimated Glomerular Filt Rate >60 [facility] Comment:Chronic Kidney Disea se: Estimated GFR < 60 mL/min/[id number] Kidney Disease: Estimated GFR < 15 mL/min/1.73m2 Glucose 125(H) 60 - 115 mg/dL [facility] Calcium 9.4 8.4 - 10.2 mg/dL [facility] Bilirubin, Total 0.5 0.0 - 1.0 mg/dL [facility] Aspartate Amino Transferase 28 5 - 31 U/L [facility] Comment:Slight Hemolysis.Int erpret result with caution. Alanine Aminotransferase 17 0 - 31 U/L [facility] Total Protein 7.3 6.5 - 8.0 g/dL [facility] Albumin Level 4.3 3.5 - 5.0 g/dL [facility] Alkaline Phosphatase 73 39 - 117 U/L [facility] 02/12/2025 10:2 1 AM EDT 02/12/2025 10:21 AM EDT us Generic External Data Provider LAB BLOOD ORDERAB LES Final Result [facility] [address] [place] [phone] * (ABNORMAL) Urinalysis, Complete, with Reflex to Culture (02/12/2025 10:12 AM EDT) Color Urine Yellow [facility] Appearance Urine Clear [facility] PH 5.5 5.0 - 9.0 [facility] Glucose Urine UA >=1000(A) Negative mg/dL [facility] Urine Blood Negative Negative [facility] Specific [place] - Urine >=1.030(H) 1.005 - 1.025 [facility] Urine Protein 30 (1+)(A) Neg-Trace mg/dL [facility] Urine Ketones Negative Negative mg/dL [facility] Nitrite Urine Negative Negative [facility] Leukocyte Esterase Urine Negative Negative [facility] RBC Urine 0-2 0 - 2 /HPF [facility] Urine WBC 0-5 0 - 5 /HPF [facility] Urine Squamous Epithelial Cell 3-5 0 - 2 /HPF [facility] Urine Bacteria Trace None Seen [facility] Hyaline Casts, Urine 0-2 0 - 2 /LPF [facility] 02/12/2025 10:1 2 AM EDT 02/12/2025 10:42 AM EDT Narrative [facility] - 02/12/2025 11:21 AM EDT Urine, Clean Catch us Generic External Data Provider LAB URINE ORDERAB LES Final Result Performing Organization Address [facility]/ZIP Co de Phone Number [facility] [address] [place] [phone] * Glucose, Whole Blood (01/14/2025 12:53 PM EDT) [facility] Glucose, Whole Blood 83 60 - 115 mg/dL [facility] Comment:METER #: [id number] Testing performed in the Endocrinology Department [address] , [address], [facility]. 01/14/2025 12:5 3 PM EDT 01/14/2025 12:56 PM EDT us Generic External Data Provider LAB BLOOD ORDERAB LES Final Result Performing Organization Address [facility] Co de Phone Number [facility] [address] [place] [phone] * Influenza B (ID NOW Rapid Molecular) (01/04/2025 1:13 PM EDT) [facility] Influenza B Negative Negative, Indeterminate [facility] Swab 01/04/2025 1:13 PM EDT us Shikha Khan MD POINT OF CARE TEST ENTER/EDIT ORDERABLES Final Result Performing Organization Address [facility] Co de Phone Number [facility] [address] [place] [phone] * Influenza A (ID NOW Rapid Molecular) (01/04/2025 1:13 PM EDT) Pathologist [facility] Influenza A Negative Negative, Indeterminate [facility] Swab 01/04/2025 1:13 PM EDT Shikha Khan MD POINT OF CARE TEST ENTER/EDIT ORDERABLES Final Result Performing Organization Address [facility]/ZIP Co de Phone Number [facility] [address] [place] [phone] * POCT Rapid COVID Ag (01/04/2025 1:13 PM EDT) Pathologist [facility] Rapid COVID Ag Negative [facility] Swab 01/04/2025 1:13 PM EDT Shikha Khan MD POINT OF CARE TEST ENTER/EDIT ORDERABLES Final Result Performing Organization Address [facility] de Phone Number [facility] [address] [place] [phone] * (ABNORMAL) POCT A1C (12/01/2024 9:28 AM EDT) [facility] Hemoglobin A1C 5.8(A) 4.0 - 5.7 % QC Media Lot # Comment:[id number] Lot# Expiration Date Comment:07/21/2026 Blood 12/01/2024 9:28 AM EDT Result [facility] Kayleen Arango MD POINT OF CARE TEST ENTER/EDIT OR DERABLES Final Result * POCT glucose manually resulted (12/01/2024 9:27 AM EDT) Pathologist [facility] Glucose Blood, POC 132 60 - 200 mg/dL QC Media Lot # Comment:[id number] Lot# Expiration Date Comment:03/11/2025 Blood Capillary blood specimen / Unknown 12/01/2024 9:27 AM EDT Result [facility] Kayleen Arango MD POINT OF CARE TEST ENTER/EDIT OR DERABLES Final Result * (ABNORMAL) Lipid Panel, Standard (12/17/2023 8:55 AM EDT) Triglycerides 200(H) <150 mg/dL [facility] Comment:Desirable Triglyceri de: less than 150 mg/dLBorderline High Triglyceride 150-199 mg/dLHigh Triglyceride: 200-499 mg/dLVery High Triglyceride: greater than or equal to 5OO mg/dL Cholesterol 226(H) <200 mg/dL [facility] Comment:Desirable Cholestero l: less than 200 mg/dLBorderline High Cholesterol: 200-239 mg/dLHigh Cholesterol: greater than 239 mg/dL LDL Cholesterol Calculated 148(H) <100 mg/dL [facility] Comment:Desirable LDL: less than 100 mg/dLNear Optimal/Above Optimal LDL: 110- 129 mg/dLBorderline High LDL: 130-159 mg/dLHigh LDL: 160-189 mg/dLVery High LDL: greater than or equal to 190 mg/dL HDL Cholesterol 38(L) >40 mg/dL [facility] Comment:Desirable HDL: great er than 40 mg/dL Note: This HDL assay may give artificially low results in patients with liver disease. Blood Venous blood specimen / Unknown 12/17/2023 8:55 AM EDT 12/17/2023 2:02 PM EDT us Kayleen Arango MD LAB BLOOD ORDERABLES Final Resul t [facility] [address] [place] [phone] * 3D BILATERAL DIAGN MAMMO 1 [...] Most Recently Relevant to Health Maintenance Insurance Care Teams Auto Top Mechanic Relationship Specialty Start Date End Date Kayleen Arango MD [address] [place] [phone] PCP - General Family Medicine 06/23/13
--- OUTSIDE RECORDS SUMMARY | 2025-02-23 10:07 | XMS_ITS | Clinical Summary ---
Author Organization [facility] Address [address] [place] [phone] Phone Care Team Providers Care [employer] Glazer Name Role Phone Kayleen Arango MD Primary Care Provider [phone] Allergies Active Allergy Reactions Criticality Noted Date [...] 04/22/2022 Social Influencers of Health Screening 04/22/2022 RSV Immunization Adult Patients (1 - Risk 50-74 years 1-dose series) 2022 Zoster Vaccines (1 of 2) 2022 Depression [...] MD LAB BLOOD ORDERABLES Final Resu lt [facility] [address] [place] [address], from Last 3 Months or Most Recently Relevant to Health Maintenance Insurance MEDICAID - [place] Care Teams [employer] Gl[employer] Relationship Specialty Start Date End Date Kayleen Arango MD [address] [place] [address] PCP - General 07/05/14
--- OUTSIDE RECORDS SUMMARY | 2025-02-23 10:07 | XMS_ITS | Encounter Summary ---
Author Organization [employer] Address [address] [facility] [address] [address] [place] [address] Care Team Providers Care Timber Setter Name Role Phone Kayleen Arango MD Primary Care Provider [phone] Reason for Visit * Reason Onset Date Comments Nurse Triage 12/31/2023 Encounter Details Date Type Department Care Team ([facility] st Contact Info) Description 12/31/2023 Telephone [facility] [address] [place] [address] Kayleen Arango MD [address] [place] [address] Nurse Triage Social History Tobacco Use Types [...] You become worse * Telephone Encounter - [place] - 12/31/2023 12:17 PM EDT Symptom: High Blood Sugar - Caller Reports Outcome: Schedule an urgent appointment (within 1 hour) or talk to a nurse or provider soon Reason: Getting worse The caller accepted this outcome documented in this encounter Plan of Treatment Upcoming Encounters Date Type Department Care Team (Late st Contact Info) Description 03/03/2025 8:45 AM EDT Office Visit [facility] [address] [place] [address] Kayleen Arango MD [address] [place] [address] documented as of this encounter Visit Diagnoses Not on filedocumented in this encounter Additional Health Concerns Assessment Noted Time PHQ-9 Depression Total Score: 0 12/20/19 23 9:29 AM EDT documented as of this encounter Care Teams Timber Setter Relationship Specialty Start Date End Date Kayleen Arango MD [address] [place] [phone] PCP - General Family Medicine 06/23/13 documented as of this encounter
--- OUTSIDE RECORDS SUMMARY | 2025-02-23 10:07 | XMS_ITS | Encounter Summary ---
Author Organization [employer] Address [address] [facility] 7[address] [place] [address] Care Team Providers Care Automatic Lathe Setter Name Role Phone Kayleen Arango MD Primary Care Provider [phone] Reason for Visit * Reason Onset Date Comments Appointment Request 06/27/2023 Encounter Details Date Type Department Care Team ([facility] Contact Info) Description 06/27/2023 Telephone [facility] MED & PEDS [address] [place] [address] Kayleen Arango MD [address] [place] [address] Appointment Request Social History Tobacco Use Types [...] Miscellaneous Notes * Telephone Encounter - Mere Lay - 06/27/2023 11:38 AM EST Tc from pt requesting a follow up appt with PCP for a her current diagnostics. Please contact pt @ [phone] Yoruba Speaker documented in this encounter Plan of Treatment Upcoming Encounters Date Type Department Care Team (Late st Contact Info) Description 03/03/2025 8:45 AM EDT Office Visit [facility] MED & PEDS [address] [place] [address] Kayleen Arango MD [address] [place] [address] documented as of this encounter Visit Diagnoses Not on filedocumented in this encounter Additional Health Concerns Assessment Noted Time PHQ-9 Depression Total Score: 0 12/20/19 23 9:29 AM EDT documented as of this encounter Care Teams Automatic Lathe Setter Relationship Specialty Start Date End Date Kayleen Arango MD [address] [place] [id number] PCP - General Family Medicine 06/23/13 documented as of this encounter
[2025-02-23 14:23] LABS: Appearance Urine Cloudy; Glucose Urine UA Negative (Negative); PH 6.0 (5.0-9.0); Specific Gravity - Urine 1.020 (1.005-1.025); UMIC TRIGGER UACC YES
[2025-02-23 14:28] LABS: UACC Culture Trigger YES
[2025-03-03 15:09] LABS: Anti Nuclear Antibody Screen NEGATIVE (NEGATIVE)
== END 2025-02-23 09:16 | disposition home or self-care (01) ==
LOC: HO.CHCLDS 09:15
PROVIDERS: Visit Provider Nurse Practitioner
DX: M48.10 Ankylosing hyperostosis [Forestier], site unspecified (principal)
CPT/HCPCS: 36415; 81001; 81003; 85652; 86038; 86140; 86200; 86431; 87086; 87088; 87186

== ENCOUNTER 2025-04-15 09:32 | Outpatient (AMB) | payer MEDICAID, SELFPAY ==
[2025-04-15 09:37] VITALS: BP 103/59; PULSE 75; BMI 41.4
--- NOTE | 2025-04-15 09:37 | A.OFFVIS_ITS ---
Vital Signs 04/15/25 09:37 Height 5 ft 7 in Weight 264 lb 8.875 oz BMI 41.4 BP 103/59 L Blood Pressure Location Lt brachial Position Sitting Pulse 75 Intake Visit Reasons: Follow up 3 months Intake Note: Yen presents to in office follow up for lab results. CC: Pt states that her right upper back pain is worst and the pain radiates to the top of her neck. Denies any other GI concerns today. Automotive Services Manager Required: Yes Accompanied by: Daughter Allergies morphine Allergy (Unknown, Verified 04/15/25 09:50) Anaphylaxis Iodinated Contrast Media (IV Contrast Dye) Allergy (Verified 04/15/25 09:50) Anaphylaxis metformin Adverse Reaction (Severe, Verified 04/15/25 09:50) Diarrhea HPI HPI Follow up 3 months: Details: ssessment & Plan (1) DISH (diffuse idiopathic skeletal hyperostosis): Comment: 02/2025 Xr Code(s): M48.10 - Ankylosing hyperostosis [Forestier], site unspecified Category: Medical Plan Yemeni # Her GI regimen consists of omeprazole 20 mg daily. - The patient is a 54 year old female presenting with chronic right flank pain. - She reports significant relief of the pain with NSAIDs, particularly Motrin. - Diagnosis efforts have included extensive testing without findings of significant infectious markers. - Imaging results indicate mild degenerative spinal changes with disc osteophytes, lacking significant stenosis or facet changes. - A suspicion of a musculoskeletal disorder with possible autoimmune involvement exists. - Current gastrointestinal symptoms include diarrhea, which may relate to Ozempic usage. DISH SYNDROME - Refer to pain management for managing symptoms. - Order blood tests for rheumatology including rheumatoid factor and CCP. - Continue taking Motrin for chronic right flank pain as long as it doesn't upset your stomach. - Monitor diarrhea symptoms and inform me if they worsen or become intolerable. - Follow up for blood work to evaluate possible autoimmune conditions. - Attend pain management referral and physical therapy as recommended. - Return in eight weeks for follow-up to discuss test results and symptom progression. Orders: Orders Erythrocyte Sedimentation Rate 02/23/25 M48.10 - Ankylosing hyperostosis [Forestier], site unspecified Rheumatoid Factor 02/23/25 M48.10 - Ankylosing hyperostosis [Forestier], site unspecified Cyclic Citrullinated Peptide 02/23/25 M48.10 - Ankylosing hyperostosis [Forestier], site unspecified RAMIRO Reflex Titer and Pattern 02/23/25 M48.10 - Ankylosing hyperostosis [Forestier], site unspecified C Reactive Protein 02/23/25 M48.10 - Ankylosing hyperostosis [Forestier], site unspecified Referrals Pain Management Referral M48.10 - Ankylosing hyperostosis [Forestier], site unspecified LABS: Laboratory Tests 02/23/25 09:21 ESR 22 H C-Reactive Protein 2.27 H Rheumatoid Factor < 13.0 Cycl Citrul Peptide IgG <16 RAMIRO Screen NEGATIVE TODAY'S VISIT Yemeni # PFSH Medical History Metabolic dysfunction-associated fatty liver disease (MAFLD) HTN (hypertension) HLD (hyperlipidemia) Obesity Diabetes mellitus Subclinical hyperthyroidism Surgical History History of surgery on lower extremity History of laparoscopic appendectomy H/O tubal ligation Family History Mother Hypertension Thyroid crisis High cholesterol Heart problem Father Heart problem Paternal Uncle Lung cancer Maternal Aunt Skin cancer Cancer Social History Alcohol intake: never Patient Tobacco Use Status: Never used Tobacco Review of Systems Const Denies fatigue, Denies fever(s), Denies night sweats, Denies poor appetite and Denies weight loss ENT Reports Normal hearing present, Denies dental pain, Denies dysphagia, Denies hearing loss, Denies mouth pain, Denies odynophagia, Denies throat swelling, Denies tongue swelling and Reports other (Dentition adequate) Card Reports no additional complaints Resp Reports no additional complaints GI Details: Denies abdominal pain, Denies melena, Denies bloating, Denies hematochezia, Denies constipation, Denies GI cramping, Denies dysphagia, Denies excessive flatus, Denies early satiety, Reports heartburn, Denies diarrhea, Denies nausea, Denies odynophagia, Denies vomiting and Denies hematemesis Musc Reports back pain and Reports stiffness Skin/Breast Denies pruritus, Denies lesions, Denies rash and Denies jaundice Neuro Reports Normal hearing present and Denies Abnormal speech present Endo Denies fatigue Aller/Immun Denies throat swelling and Denies tongue swelling Physical Exam Vital Signs: Last Vital Signs Pulse 75 04/15/25 09:37 BP 103/59 L 04/15/25 09:37 BMI result Body Mass Index 41.4 Const General: cooperative, no acute distress, well developed and well groomed Nutritional Appearance: well nourished and obese Orientation/consciousness: oriented to person, oriented to place and oriented to time Limitations: No language barrier HEENT Head: Yes normocephalic and Yes atraumatic Eyes General: appearance normal, both eyes and all related structures Pupils: Equal, round and reactive pupils present Neck Neck: Yes normal visual inspection and Yes no lymphadenopathy Thyroid: Thyroid normal Resp Effort & Inspection: normal respiratory effort and able to speak in complete sentences Auscultation: clear to auscultation bilaterally Cardio Rate: regular rate Rhythm: regular rhythm Heart sounds: Normal, physiologic split S2 sound present Peripheral pulses: radial pulses present and posterior tibial pulses present GI Inspection: No distended, Yes Abdominal panniculus present and Yes obesity Palpation (GI): Soft to palpation, nontender, no guarding, not rigid and No hepatosplenomegaly present Percussion: Yes normal to percussion Auscultation: normal bowel sounds Rectal Exam - Female: deferred Skin General skin exam: no rashes or lesions noted, turgor normal, skin not dry, no jaundice, No spider nevi and no striae Rashes: no rashes Nails: normal Neuro General: oriented to person, oriented to place and oriented to time Cranial nerves: Yes Equal, round and reactive pupils present and Yes Normal hearing present Speech: No Abnormal speech present Extrem General: Yes normal to inspection, No clubbing, No cyanosis and No edema Psych Appearance: grossly normal and well kempt Mental Status: mental status grossly normal Speech and movement: Normal speech and movement present Affect: normal affect Attitude: cooperative Thought process: Normal thought process present and not confabulating Thought content: Normal thought content present Insight: Good insight present (Psych) Judgement: Good judgement present (Psych) Assessment & Plan Assessment & Plan (1) DISH (diffuse idiopathic skeletal hyperostosis): Comment: 02/2025 Xr Code(s): M48.10 - Ankylosing hyperostosis [Forestier], site unspecified Category: Medical (2) Thoracic back pain: Code(s): M54.6 - Pain in thoracic spine Category: Medical (3) GERD (gastroesophageal reflux disease): Code(s): K21.9 - Gastro-esophageal reflux disease without esophagitis Category: Medical Plan Yemeni #Teddy Her GI regimen consists of omeprazole 20 mg daily. Subjective Patient presents for follow-up reporting that her back hurts more. I reviewed recent test results showing elevated inflammatory markers (CRP and ESR). She denies any known autoimmune diagnosis; prior basic primary care screening for rheumatoid arthritis was negative. Radiology previously reported DISH (diffuse idiopathic skeletal hyperostosis). She reports GI symptoms are controlled on omeprazole. Objective - CRP elevated; ESR (sed rate) elevated - Rheumatoid arthritis screening panel (basic primary care pre-screen) negative - Radiology: Findings consistent with DISH (diffuse idiopathic skeletal hyperostosis) Assessment & Plan Chronic back pain due to DISH with elevated inflammatory markers: Chronic worsening back pain in the context of radiographic DISH and elevated CRP/ESR. Initial autoimmune screening for rheumatoid arthritis is negative; etiology of systemic inflammation unclear at this time. - Provide and reinforce existing referral to Pain Management; supplied phone number and advised patient to call to expedite scheduling - If Pain Management is unable to adequately address symptoms, will consider referral to Rheumatology - Reviewed and discussed lab and imaging findings with the patient - Follow up in 6 months, or sooner if symptoms worsen or new symptoms develop Gastroesophageal reflux disease - Continue omeprazole as currently prescribed; patient reports good control Coding Level of Care Code Est Pt Level 3 (72463) Diagnoses DISH (diffuse idiopathic skeletal hyperostosis) M48.10 Thoracic back pain M54.6 GERD (gastroesophageal reflux disease) K21.9
--- OUTSIDE RECORDS SUMMARY | 2025-04-15 10:45 | XMS_ITS | Clinical Summary ---
Author Organization [facility] Address [address] [address] Phone Care Team Providers Care Referral Manager Name Role Phone Unavailable Primary Care [...] ACO C3 ACO C3 ACO C3 ACO [facility] C3 ACO Additional Source Comments The information contained in this document represents components of the legal health record. It is not the complete legal health record.[facility]
--- OUTSIDE RECORDS SUMMARY | 2025-04-15 10:46 | XMS_ITS | Clinical Summary ---
Author Organization [facility] Address [address] [place] [id number] Phone Care Team Providers Care Clinic Coordinator Name Role Phone Kayleen Arango MD Primary Care Provider [phone] Allergies Active Allergy Reactions Criticality Noted Date [...] mmol/L LAB CHEMISTRY METHOD 09/11/2024 11:56 AM [facility] Potassium 4.0 3.5 - 5.5 mmol/L LAB CHEMISTRY METHOD 09/11/2024 11:56 AM [facility] Chloride 101 96 - 110 mmol/L LAB CHEMISTRY METHOD 09/11/2024 11:56 AM [facility] CO2 30 21 - 32 mmol/L LAB CHEMISTRY METHOD 09/11/2024 11:56 AM [facility] Anion Gap 5 3 - 11 LAB CHEMISTRY METHOD 09/11/2024 11:56 AM [facility] Glucose 113(H) 70 - 100 mg/dL LAB CHEMISTRY METHOD 09/11/2024 11:56 AM [facility] BUN 14 5 - 25 mg/dL LAB CHEMISTRY METHOD 09/11/2024 11:56 AM [facility] Creatinine 0.90 0.50 - 1.10 mg/dL LAB CHEMISTRY METHOD 09/11/2024 11:56 AM [facility] eGFR 77 >=60 mL/min/1. 73m2 LAB CHEMISTRY METHOD 09/11/2024 11:56 AM [facility] Comment:Calculation based on the Chronic Kidney Disease Epidemiology Collaboration (CKD-EPI) equation refit without adjustment for race. BUN/Creatinine Ratio 15.6 LAB CHEMISTRY METHOD 09/11/2024 11:56 AM [facility] Calcium 9.7 8.5 - 10.5 mg/dL LAB CHEMISTRY METHOD 09/11/2024 11:56 AM [facility] AST (SGOT) 16 10 - 42 unit/L LAB CHEMISTRY METHOD 09/11/2024 11:56 AM [facility] ALT (SGPT) 29 10 - 60 unit/L LAB CHEMISTRY METHOD 09/11/2024 11:56 AM [facility] Alkaline Phosphatase 102 42 - 121 unit/L LAB CHEMISTRY METHOD 09/11/2024 11:56 AM [facility] Total Protein 7.4 6.0 - 8.0 g/dL LAB CHEMISTRY METHOD 09/11/2024 11:56 AM [facility] Albumin 3.8 3.2 - 5.0 g/dL LAB CHEMISTRY METHOD 09/11/2024 11:56 AM [facility] Total Bilirubin 0.5 0.0 - 1.4 mg/dL LAB CHEMISTRY METHOD 09/11/2024 11:56 AM [facility] Blood Venous blood specimen / Unknown Venipuncture / Unknown 09/11/2024 10:20 AM EDT 09/11/2024 11:21 AM EDT us Damian Aviles MD LAB BLOOD ORDERABLES Final Resu lt [facility] [address] [place] [address], from Last 3 Months or Most Recently Relevant to Health Maintenance Insurance MEDICAID - [place] Care Teams Clinic Coordinator Relationship Specialty Start Date End Date Kayleen Arango MD [address] [place] [address] PCP - General 07/05/14
--- OUTSIDE RECORDS SUMMARY | 2025-04-15 10:46 | XMS_ITS | Encounter Summary ---
Author Organization [employer] Address [address] [facility] [address] [place] [address] Care Team Providers Care Staffing Executive Name Role Phone Kayleen Arango MD Primary Care Provider [phone] Cesar Hayden MD Primary Care Prov ider Reason for Visit * Reason Onset Date Comments Appointment Request 06/27/2023 Encounter Details Date Type Department Care Team ([facility] st Contact Info) Description 06/27/2023 Telephone [facility] MED & PEDS [address] [place] [address] Kayleen Arango MD [address] [place] [address] Appointment Request Social History Tobacco Use Types [...] Notes * Telephone Encounter - Mere Mobley Lay - 06/27/2023 11:38 AM EST Tc from pt requesting a follow up appt with PCP for a her current diagnostics. Please contact pt @ [phone] Kyrgyz Speaker documented in this encounter Plan of Treatment Upcoming Encounters Date Type Department Care Team (Late st Contact Info) Description 05/17/2025 9:00 AM EST Telemedicine [facility] MED & PEDS [address] [place] [address] Cesar Hayden MD [address] [place] [address] documented as of this encounter Visit Diagnoses Not on filedocumented in this encounter Additional Health Concerns Assessment Noted Time PHQ-9 Depression Total Score: 0 12/20/19 23 9:29 AM EDT documented as of this encounter Care Teams Staffing Executive Relationship Specialty Start Date End Date Kayleen Arango MD [address] [place] [address] PCP - General Family Medicine 06/23/13 03/08/25 Cesar Hayden MD [address] [place] [address] PCP - General Internal Medicine 03/09/25 documented as of this encounter
--- OUTSIDE RECORDS SUMMARY | 2025-04-15 10:46 | XMS_ITS | Encounter Summary ---
Author Organization [facility] Address [address] [facility] [address] [place] [phone] Phone Care Team Providers Care Maintenance And Utilities Supervisor Name Role Phone Unavailable Primary Care Provider Unavailabl e Encounter Details Date Type Department Care Team (Late st Contact Info) Description 11/05/2019 Ancillary Orders [facility] [address] [place] [address] [place] [address] Jon Lindo, [address] [address] Palpitations Social History Tobacco Use Types Packs/Day [...] is not the complete legal health record.[facility]
--- OUTSIDE RECORDS SUMMARY | 2025-04-15 10:46 | XMS_ITS | Clinical Summary ---
Author Organization [employer] Address [address] [facility] [address] [place] [address] Care Team Providers Care Historic Sites Registrar Name Role Phone Cesar Hayden MD Primary Care Prov ider Allergies Active Allergy Reactions Criticality Noted Date [...] mouth 3 times daily. 90 tablet 11 3 Active baclofen (Lioresal) 10 MG tablet Take one tablet TID PRN 30 tablet 4 Active Blood Glucose Monitoring Suppl (t-ArtStyle [place] Lite) w/Device kitIndications: New onset type 2 diabetes mellitus (HCC) Use to test blood sugar 2 times daily 1 kit 4 Active Alcohol Swabs 70 % padsIndications :New onset type 2 diabetes mellitus (HCC) Use to test blood sugar 2 times daily 100 each 11 4 Active Diclofenac Sodium 1 % gel TAKE 2 GRAMS (TOPICAL) 4 TIMES PER DAY FOR 10 DAYS 100 g 4 Active Semaglutide-Hoang ght Management (Wegovy) 0.25 MG/0.5ML solution auto-injector Inject 0.25 mg under the skin 1 (one) time per week. 0.5 mL 3 4 Active FreeStyle lancetsIndicati ons:New onset type 2 diabetes mellitus (HCC) USE 1 LANCET DIRECTED TWICE A DAY 100 each 5 5 Active omeprazole (PriLOSEC) [address] capsule TAKE 1 CAPSULE BY MOUTH EVERY DAY 90 capsule 3 5 Active lidocaine (Lidoderm) 5 % patch Apply 1 patch topically Once per day. Remove & discard patch within 12 hours or as directed by . 30 patch 2 5 09/10/19 26 Active tiZANidine (Zanaflex) 2 MG tablet Take 1 tablet (2 mg) by mouth every 8 (eight) hours if needed (pain). May cause drowsiness 30 tablet 5 Active simvastatin (Zocor) 20 MG tablet TAKE 1 TABLET BY MOUTH AT BEDTIME 90 tablet 3 5 Active cyclobenzaprine (Flexeril) 10 MG tablet Take 1 tablet (10 mg) by mouth at bedtime for 10 days. 10 tablet 5 Active meloxicam (Mobic) 7.5 MG tablet Take 1 tablet (7.5 mg) by mouth Once per day. 30 tablet 11 5 12/02/19 26 Active Asmanex HFA 200 MCG/ACT aerosol TAKE 1 PUFF BY MOUTH TWICE A DAY (*2 MONTH SUPPLY*) 13 g 2 5 Active acetaminophen (Tylenol 8 Hour) 650 MG ER tabletIndicatio ns:Chronic bilateral thoracic back pain TAKE 1 TAB BY MOUTH EVERY 8 HOURS IF NEEDED FOR MILD PAIN FOR UP TO 10 DAYS DONT CRUSH, CHEW OR SPIT 90 tablet 3 5 Active metFORMIN (Glucophage) 500 MG tablet TAKE 1 TABLET BY MOUTH WITH BREAKFAST AND EVENING MEAL 180 tablet 5 Active Jardiance 10 MG TAKE 1 TABLET BY MOUTH EVERY DAY 30 tablet 11 5 Active FREESTYLE LITE test stripIndication s:New onset type 2 diabetes mellitus (HCC) USE TO TEST BLOOD SUGAR 2 TIMES DAILY 100 strip 11 5 Active lidocaine (Lidoderm) 5 % patchIndication s:Acute left-sided low back pain with left-sided sciatica APPLY 1 PATCH TOPICALLY ONCE PER DAY. REMOVE & DISCARD PATCH WITHIN 12 HOURS OR DIRECTED BY MD. 30 patch 1 5 Active ibuprofen 800 MG tablet TAKE [...] Encounters Date Type Department Care Team Description 03/23/2025 Telephone [facility] [address] [place] [address] Cesar Hayden MD Nurse Triage 03/08/2025 Telephone [facility] [address] [place] [address] Marielos Peterson MD 03/03/2025 8:45 AM EDT Office Visit [facility] [address] [place] [address] Kayleen Arango MD Type 2 diabetes mellitus without complication, without long-term current use of insulin (HCC) (Primary Dx); Primary hypertension; Mild intermittent asthma without complication; Encounter for screening for malignant neoplasm of colon; Encounter for immunization 03/03/2025 Travel 03/01/2025 Telephone [facility] [address] [place] [address] Kayleen Arango MD chart prep 03/01/2025 Telephone [facility] [address] [place] [address] Marielos Peterson MD 02/23/2025 Travel 02/12/2025 Orders Only GENERIC EXTERNAL DATA DEPARTMENT Provider, Generic External Data 02/09/2025 Refill [facility] [address] [place] [address] Cesar Hayden MD 02/03/2025 Refill [facility] [address] [place] [address] Tamiko Barrera MD Acute left-sided low back pain with left-sided sciatica 01/14/2025 Orders Only GENERIC EXTERNAL DATA DEPARTMENT Provider, Generic External Data 01/14/2025 Refill [facility] [address] [place] [address] Michaela Ridley MD New onset type 2 diabetes mellitus (CMS/HCC) from Last 3 Months Immunizations Immunization Administration [...] Sign Reading Time Taken Comments Blood Pressure 126/76 03/03/2025 9:08 AM EDT Pulse 62 03/03/2025 9:08 AM EDT Temperature 36.4 C (97.5 F) 03/03/2025 9:08 AM EDT Respiratory Rate 18 03/03/2025 9:08 AM EDT Oxygen Saturation 97% 01/04/2025 12:57 PM EDT Inhaled Oxygen Concentration - - Weight 124 kg (273 lb) 03/03/2025 9:08 AM EDT Height 170.2 cm (5' 7 ) 03/03/2025 9:08 AM EDT Body Mass Index 42.76 03/03/2025 9:08 AM EDT Plan of Treatment Upcoming Encounters Date Type Department Care Team (Late st Contact Info) Description 05/17/2025 9:00 AM EST Telemedicine [facility] [address] [place] [address] Cesar Hayden MD [address] [place] [address] Health Maintenance Due Date Last Done Comments CT Colonography 1972 Colonoscopy 1972 Colorectal Cancer Screening 1972 FIT DNA/Cologuard 1972 FIT 1972 FOBT 1972 HIV Screening 1972 Sigmoidoscopy 1972 Disability Screening 1972 Diabetes: Foot Exam 1982 Eye Exam 1982 Alcohol/Substance Use Screening 1984 Family Planning (PISQ) 1987 Hepatitis C Screening 1990 Hepatitis A Vaccines (1 of 2 - Risk 2-dose series) 1991 Hepatitis B Vaccines (1 of 3 - 19+ 3-dose series) 1991 Pneumococcal Vaccine: 50+ Years (1 of 2 - PCV) 1991 Pap Smear 1993 Cervical Cancer Screening 2002 HPV/Cotest 2002 Mammogram 09/15/2021 09/16/2019 RSV Patients and Patients Aged 60 years or older (1 - Risk 50-74 years 1-dose series) 2022 Zoster Vaccines (1 of 2) 2022 Depression Screening 12/20/2023 12/19/2022, 12/20/19 23 SDOH Screening 12/20/2023 12/19/2022 Lipid Panel 12/16/2024 12/17/2023, 09/10, 04/20/2021, Additional history exists Diabetes: Urine Protein Screening 05/28/2025 05/28/2024, 03/30/2024 Diabetes: Hemoglobin A1C 06/03/2025 025, 08/26/2024, 12/20/2023 Influenza Vaccine (#1) 2025 Postp oned from 01/11/2025 (Patient Refused) COVID-19 Vaccine ( season) 2026 05/09/2023, 11/26/2021, 02/14/2021, Additional history exists Postponed from 01/11/2025 (Patient Refused) Tobacco Screening 03/03/2026 03/03/2025 DTaP/Tdap/Td Vaccines (2 - Td or Tdap) 12/02/2028 12/02/2018 HIB Vaccines Aged Out No longer eligi [...] Date/Time Associated Diagnosis Comments POCT GLUCOSE Routine 03/03/2025 9:10 AM EDT Type 2 diabetes mellitus without complication, without long-term current use of insulin (HCC) XR THORACIC SPINE 2 VIEWS Routine 02/12/2025 [...] BLOOD Routine 01/14/2025 12:53 PM EDT POCT GLYCATED HEMOGLOBIN, TOTAL Routine 12/01/2024 9:28 AM EDT Type 2 diabetes mellitus without complication, without long-term current use of insulin ([facility]) LIPID PANEL, STANDARD Routine 12/17/2023 8:55 AM EDT Primary hypertension BI MAMMOGRAM DIAGNOSTIC BILATERAL Routine 09/16/2019 10:49 AM EDT from Last 3 Months or Most Recently Relevant to Health Maintenance Results * POCT Glucose (03/03/2025 9:10 AM EDT) Glucose Blood, POC 142 60 - 200 mg/dL QC Media Lot # [id number] Lot# Expiration Date Blood Capillary blood specimen / Unknown 03/03/2025 9:10 AM EDT Kayleen Arango MD POINT OF CARE TEST ENTER/EDIT OR DERABLES Final Result * XR Thoracic Spine 2 Views (02/12/2025 10:57 AM EDT) Anatomical Region Laterality Modality Spine, T-spine Radiographic Marcia ging 02/12/2025 10:5 7 AM EDT Narrative 02/12/2025 11:16 AM EDT [address] [address] XRay Report Signed Patient: Yne Shaw MR#: [id number] : 1970 Acct:[id number] Age/Sex: 54 / F ADM Date: 02/12/25 Loc: HO.LAB Attending Dr: iLli CUELLAR Ordering Physician: Lili Jamil Date of Service: 02/12/25 Procedure(s): XR thoracic spine 2V Accession Number(s): [id number] cc: Lili Jamil; Kayleen Arango MD Reason [...] 02/12/25 1113 DD/ 1057 TD/TT: 02/12/25 1103 Police Detention Attendant: Procedure Note Donotuseinterpreter, Image - 02/12/2025 [place] [address] XRay Report Signed Patient: Yen Shaw EMR#: [id number] : 1970Acct:[id number] Age/Sex: 54 / FADM Date: 02/12/25 Loc: HO.LAB Attending Dr: Lili CUELLAR Ordering Physician: Lili Jamil Date of Service: 02/12/25 Procedure(s): XR thoracic spine 2V Accession Number(s): [id number] cc: Lili Jamil; Kayleen Arango MD Reason [...] 02/12/25 1113 DD/ 1057 TD/TT: 02/12/25 1103 Police Detention Attendant: [facility] External Provider IMG XR PROCEDURES Final Result * XR Lumbar Spine 2-3 Views (02/12/2025 10:56 AM EDT) Anatomical Region Laterality Modality Spine, L-spine Radiographic Marcia ging 02/12/2025 10:5 6 AM EDT Narrative 02/12/2025 11:18 AM EDT [place] [address] XRay Report Signed Patient: Yen Shaw MR#: [id number] : 1970 Acct:[id number] Age/Sex: 54 / F ADM Date: 02/12/25 Loc: HO.LAB Attending Dr: Lili CUELLAR Ordering Physician: Lili Jamil Date of Service: 02/12/25 Procedure(s): XR lumbar spine 2-3V Accession Number(s): [id number] cc: Lili Jamil; Kayleen Arango MD Reason [...] 02/12/25 1116 DD/ 1056 TD/TT: 02/12/25 1103 Police Detention Attendant: Procedure Note Donotuseinterpreter, Image - 02/12/2025 [place] [address] XRay Report Signed Patient: Yen Shaw EMR#: [id number] : 1970Acct:[id number] Age/Sex: 54 / FADM Date: 02/12/25 Loc: HO.LAB Attending Dr: Lili CUELLAR Ordering Physician: Lili Jamil Date of Service: 02/12/25 Procedure(s): XR lumbar spine 2-3V Accession Number(s): [id number] cc: Lili Jamil; Kayleen Arango MD Reason [...] 02/12/25 1116 DD/ 1056 TD/TT: 02/12/25 1103 Police Detention Attendant: [facility] External Provider IMG XR PROCEDURES Final Result * Slide Review (02/12/2025 10:21 AM EDT) Slide Review VERIFIED [facility] 02/12/2025 10:2 1 AM EDT 02/12/2025 10:21 AM EDT Generic External Data Provider LAB BLOOD ORDERAB LES Final Result Performing Organization Address [facility] Co de Phone Number [facility] [address] [place] [phone] * TSH with Reflex to Free T4 (02/12/2025 10:21 AM EDT) TSH reflex Free T4 0.87 0.32 - 4.0 uIU/mL [facility] 02/12/2025 10:2 1 AM EDT 02/12/2025 10:21 AM EDT Generic External Data Provider LAB BLOOD ORDERAB LES Final Result Performing Organization Address [facility] Co de Phone Number [facility] [address] [place] [phone] * (ABNORMAL) CBC auto differential (02/12/2025 10:21 AM EDT) White Blood Count 7.8 4.8 - 10.8 X10*3/uL [facility] Red Blood Count 5.06 4.20 - 5.50 X10*6/uL [facility] Hemoglobin 13.5 12.0 - 16.0 g/dl [facility] Hematocrit 41.4 37.0 - 47.0 % [facility] Mean Corpuscular Volume 81.8 80.0 - 98.0 fL [facility] Mean Corpuscular Hemoglobin 26.7(L) 27.0 - 33.0 pg [facility] Mean Corpuscular HGB Conc 32.6 31.0 - 35.0 g/dl [facility] Red Cell Distribution Width 13.7 11.0 - 16.0 % [facility] Platelet Count 189 160 - 400 X10*3/uL [facility] Mean Platelet Volume 11.4 9.4 - 12.3 fL [facility] Neutrophils Percent Auto 70.6 45 - 73 % [facility] Imm Gran Pct Auto 0.3 0.0 - 0.4 % [facility] Lymphocytes Percent Auto 20.9 20 - 40 % [facility] Monocytes Percent Auto 6.6 2 - 11 % [facility] Eosinophils Percent Auto 1.3 0 - 4 % [facility] Basophils Percent Auto 0.3 0 - 2 % [facility] NRBC Pct Auto 0.0 0.0 - 0.2 /100WBC [facility] Neutrophils Absolute Auto 5.5 2.0 - 8.3 x10*3/uL [facility] Imm Gran Abs Auto 0.02 0.00 - 0.03 X10*3/uL [facility] Lymphocytes Absolute Auto 1.6 1.2 - 4.9 X10*3/uL [facility] Monocytes Absolute Auto 0.5 0.1 - 1.2 X10*3/uL [facility] Eosinophils Absolute Auto 0.1 0.0 - 0.4 X10*3/uL [facility] Basophils Absolute Auto 0.0 0.0 - 0.2 X10*3/uL [facility] NRBC Abs Auto 0.000 0.0 - 0.012 X10*3/uL [facility] 02/12/2025 10:2 1 AM EDT 02/12/2025 10:21 AM EDT us Generic External Data Provider LAB BLOOD ORDERAB LES Edited Result - Final [facility] [address] [place] [phone] [phone] * (ABNORMAL) Comprehensive Metabolic Panel (02/12/2025 10:21 AM EDT) Sodium 139 135 - 145 mmol/L [facility] Potassium 3.9 3.3 - 5.1 mmol/L [facility] Comment:Slight Hemolysis.Int erpret result with caution. Chloride 106 96 - 108 mmol/L [facility] Carbon Dioxide 24 22 - 29 mmol/L [facility] Anion Gap 13 12 - 20 [facility] Urea Nitrogen (BUN) 10 9 - 16 mg/dL [facility] Creatinine, Serum 0.92 0.5 - 1.4 mg/dL [facility] Estimated Glomerular Filt Rate >60 [facility] Comment:Chronic Kidney Disea se: Estimated GFR < 60 mL/min/1.56h3Cukiyh Kidney Disease: Estimated GFR < 15 mL/min/1.73m2 Glucose 125(H) 60 - 115 mg/dL [facility] Calcium 9.4 8.4 - 10.2 mg/dL [facility] Bilirubin, Total 0.5 0.0 - 1.0 mg/dL [facility] Aspartate Amino Transferase 28 5 - 31 U/L [facility] Comment:Slight Hemolysis.Int erpret result with caution. Alanine Aminotransferase 17 0 - 31 U/L [facility] Total Protein 7.3 6.5 - 8.0 g/dL [facility] Albumin Level 4.3 3.5 - 5.0 g/dL [facility] Alkaline Phosphatase 73 39 - 117 U/L [facility] 02/12/2025 10:2 1 AM EDT 02/12/2025 10:21 AM EDT us Generic External Data Provider LAB BLOOD ORDERAB LES Final Result Performing Organization Address [facility]/ZIP Co de Phone Number [facility] [address] [place] [phone] * (ABNORMAL) Urinalysis, Complete, with Reflex to Culture (02/12/2025 10:12 AM EDT) Color Urine Yellow [facility] Appearance Urine Clear [facility] PH 5.5 5.0 - 9.0 [facility] Glucose Urine UA >=1000(A) Negative mg/dL [facility] Urine Blood Negative Negative [facility] Specific [place] - Urine >=1.030(H) 1.005 - 1.025 [facility] Urine Protein 30 (1+)(A) Neg-Trace mg/dL [facility] Urine Ketones Negative Negative mg/dL [facility] Nitrite Urine Negative Negative [facility] Leukocyte Esterase Urine Negative Negative [facility] RBC Urine 0-2 0 - 2 /HPF [facility] Urine WBC 0-5 0 - 5 /HPF [facility] Urine Squamous Epithelial Cell 3-5 0 - 2 /HPF [facility] Urine Bacteria Trace None Seen [facility] Hyaline Casts, Urine 0-2 0 - 2 /LPF [facility] 02/12/2025 10:1 2 AM EDT 02/12/2025 10:42 AM EDT Narrative [facility] - 02/12/2025 11:21 AM EDT Urine, Clean Catch us Generic External Data Provider LAB URINE ORDERAB LES Final Result Performing Organization Address [facility]/ZIP Co de Phone Number [facility] [address] [place] [phone] * Glucose, Whole Blood (01/14/2025 12:53 PM EDT) Glucose, Whole Blood 83 60 - 115 mg/dL [facility] Comment:METER #: [id number] Testing performed in the Endocrinology Department [address] , [address], [facility]. 01/14/2025 12:5 3 PM EDT 01/14/2025 12:56 PM EDT us Generic External Data Provider LAB BLOOD ORDERAB LES Final Result [facility] [address] [place] [phone] [phone] * (ABNORMAL) POCT A1C (12/01/2024 9:28 AM EDT) Hemoglobin A1C 5.8(A) 4.0 - 5.7 % QC Media Lot # Comment:[id number] Lot# Expiration Date Comment:07/21/2026 Blood 12/01/2024 9:28 AM EDT us Kayleen Arango MD POINT OF CARE TEST ENTER/EDIT OR DERABLES Final Result * (ABNORMAL) Lipid Panel, Standard (12/17/2023 8:55 AM EDT) Triglycerides 200(H) <150 mg/dL [facility] Comment:Desirable Triglyceri de: less than 150 mg/dLBorderline High Triglyceride 150-199 mg/dLHigh Triglyceride: 200-499 mg/dLVery High Triglyceride: greater than or equal to 5OO mg/dL Cholesterol 226(H) <200 mg/dL [facility] Comment:Desirable Cholestero l: less than 200 mg/dLBorderline High Cholesterol: 200-239 mg/dLHigh Cholesterol: greater than 239 mg/dL LDL Cholesterol Calculated 148(H) <100 mg/dL [facility] Comment:Desirable LDL: less than 100 mg/dLNear Optimal/Above Optimal LDL: 110- 129 mg/dLBorderline High LDL: 130-159 mg/dLHigh LDL: 160-189 mg/dLVery High LDL: greater than or equal to 190 mg/dL HDL Cholesterol 38(L) >40 mg/dL [facility] Comment:Desirable HDL: great er than 40 mg/dL Note: This HDL assay may give artificially low results in patients with liver disease. Blood Venous blood specimen / Unknown 12/17/2023 8:55 AM EDT 12/17/2023 2:02 PM EDT Kayleen Arango MD LAB BLOOD ORDERABLES Final Resul t [facility] [address] [place] [phone] * 3D BILATERAL DIAGN MAMMO 1 [...] Most Recently Relevant to Health Maintenance [place] [address] [place] [address] C3 Care Teams Historic Sites Registrar Relationship Specialty Start Date End Date Cesar Hayden MD [address] [place] [phone] PCP - General Internal Medicine 03/09/25
--- OUTSIDE RECORDS SUMMARY | 2025-04-15 10:47 | XMS_ITS | Encounter Summary ---
Author Organization [employer] Address [address] [place] [address] Care Team Providers Care Emergency Communications Dispatcher Name Role Phone Kayleen Arango MD Primary Care Provider [phone] Cesar Hayden MD Primary Care Prov ider Reason for Visit * Reason Onset Date Comments Nurse Triage 10/18/2023 Encounter Details Date Type Department Care Team (Late st Contact Info) Description 10/18/2023 Telephone [facility] MEDICINE [address] [place] [address] Kayleen Arango MD [address] [place], [place] [phone] Nurse Triage Social History Tobacco Use Types [...] EDT Triage call returned to patient with [employer] Technical Support Director [phone] [facility] The caller accepted this outcome Patient speaks comoran and was seen on 10/15 for this symptoms and is not getting any better documented in this encounter Plan of Treatment Upcoming Encounters Date Type Department Care Team (Late st Contact Info) Description 05/17/2025 9:00 AM EST Telemedicine [facility] [address] [place] [address] Cesar Hayden MD [address] [place] [address] documented as of this encounter Visit Diagnoses Not on filedocumented in this encounter Additional Health Concerns Assessment Noted Time PHQ-9 Depression Total Score: 0 12/20/19 23 9:29 AM EDT documented as of this encounter Care Teams Emergency Communications Dispatcher Relationship Specialty Start Date End Date Kayleen Arango MD [address] [place] [phone] PCP - General Family Medicine 06/23/13 03/08/25 Cesar Hayden MD [address] [place] [address] PCP - General Internal Medicine 03/09/25 documented as of this encounter
--- OUTSIDE RECORDS SUMMARY | 2025-04-15 10:47 | XMS_ITS | Encounter Summary ---
Author Organization [employer] Address [address] [facility] [address] [place] [address] Care Team Providers Care Commodities Manager Name Role Phone Kayleen Arango MD Primary Care Provider Cesar Hayden MD Primary Care Prov ider Encounter Details Date Type Department Care Team (Late st Contact Info) Description 09/11/2024 Orders Only [facility] [address] [place] [address] Provider, MD [place] Social History Tobacco Use [...] t he electric, gas, oil or water [employer] threatened to shut off services in your [...] Info) Description 05/17/2025 9:00 AM EST Telemedicine [facility] [address] [place], [place] [phone] Cesar Hayden MD [address] [place] [address] documented as of this encounter Procedures Procedure [...] documented as of this encounter Care Teams Commodities Manager Relationship Specialty Start Date End Date Kayleen Arango MD [address] [place] [phone] PCP - General Family Medicine 06/23/13 03/08/25 Cesar Hayden MD [address] [place] [address] PCP - General Internal Medicine 03/09/25 documented as of this encounter
--- OUTSIDE RECORDS SUMMARY | 2025-04-15 10:47 | XMS_ITS | Encounter Summary ---
Author Organization [employer] Address [address] [place] [address] Care Team Providers Care Gas Worker Name Role Phone Kayleen Arango MD Primary Care Provider [phone] Cesar Hayden MD Primary Care Prov ider Reason for Visit * Reason Onset Date Comments Nurse Triage 12/31/2023 Encounter Details Date Type Department Care Team (Late st Contact Info) Description 12/31/2023 Telephone [facility] [address] [place] [address] Kayleen Arango MD [address] [place] [address] Nurse Triage Social History Tobacco Use Types [...] Upcoming Encounters Date Type Department Care Team ([facility] st Contact Info) Description 05/17/2025 9:00 AM EST Telemedicine [facility] MED & PEDS [address] [place] [address] Cesar Hayden MD [address] [place] [address] documented as of this encounter Visit Diagnoses Not on filedocumented in this encounter Additional Health Concerns Assessment Noted Time PHQ-9 Depression Total Score: 0 12/20/19 9:29 AM EDT documented as of this encounter Care Teams Gas Worker Relationship Specialty Start Date End Date Kayleen Arango MD [address] [place] [phone] PCP - General Family Medicine 06/23/13 03/08/25 Cesar Hayden MD [address] [place] [address] PCP - General Internal Medicine 03/09/25 documented as of this encounter
== END 2025-04-15 10:14 | disposition home or self-care (01) ==
LOC: HO.HGI 09:32
PROVIDERS: PCP Student in an Organized Health Care Education/Training Program; Visit Provider Nurse Practitioner
DX: M48.10 Ankylosing hyperostosis [Forestier], site unspecified (principal); M54.6 Pain in thoracic spine; K21.9 Gastro-esophageal reflux disease without esophagitis
CPT/HCPCS: 99213

== ENCOUNTER → 2025-04-15 09:32 | Outpatient (BNVA) | payer MEDICAID, SELFPAY | PROVIDERS: PCP Student in an Organized Health Care Education/Training Program; Visit Provider Nurse Practitioner | DX: K21.9 Gastro-esophageal reflux disease without esophagitis (principal); M48.10 Ankylosing hyperostosis [Forestier], site unspecified; M54.6 Pain in thoracic spine; Z79.899 Other long term (current) drug therapy | CPT/HCPCS: 99212 ==